=== PATIENT | female | born 1940 | race Caucasian/White ===

== ENCOUNTER 2017-01-12 11:15 | Emergency (ER) | payer MEDICARE, OTHER ==
--- NOTE | 2017-01-12 13:05 | UC ---
Respiratory Complaint HPI - HPI Summary HPI Summary: COUGH X 5 DAYS NO FEVER, NO CHILLS, + NASAL CONGESTION, PND, NO WHEEZING , + SOB BUT NOT MORE THAN USUAL - History of Current Complaint Chief Complaint: UCRespiratory Stated Complaint: COUGH Time Seen by Provider: 01/12/17 12:58 Hx Obtained From: Patient Onset/Duration: Gradual Onset, Lasting Days - 5, Still Present Timing: Constant Severity Initially: Moderate Severity Currently: Moderate Character: Cough: Nonproductive Aggravating Factors: Exertion, Deep Breaths Associated Signs And Symptoms: Positive: Dyspnea, URI, Nasal Congestion. Negative: Fever, Chills, Wheezing, Sinus Discomfort - Allergies/Home Medications Allergies/Adverse Reactions: Allergies Allergy/AdvReac Type Severity Reaction Status Date / Time Codeine AdvReac Intermediate "Vomit, Verified 01/12/17 12:57 get light-headed, sleep forever" Home Medications: Home Medications Aspirin [Aspirin 81 MG TAB] 81 mg PO DAILY 01/12/17 [History Confirmed 01/12/17] Cholecalciferol TAB* [Vitamin D TAB*] 2,000 units PO DAILY 01/12/17 [History Confirmed 01/12/17] Fluticasone-Salmeterol 250-50* [Advair Diskus 250-50*] 1 puff INH BID 01/12/17 [ History Confirmed 01/12/17] Furosemide TAB* [Lasix TAB*] 40 mg PO DAILY 01/12/17 [History Confirmed 01/12/17 ] Gabapentin CAP(*) [Neurontin 300 CAP(*)] 300 mg PO TID 01/12/17 [History Confirmed 01/12/17] Insulin GLARGINE(*) [Lantus(*)] 42 units SUBCUT BID 01/12/17 [History Confirmed 01/12/17] Insulin LISPRO* [HumaLOG*] 10 unit SUBCUT AC 01/12/17 [History Confirmed ] Levothyroxine TAB* [Synthroid TAB*] 150 mcg PO DAILY 01/12/17 [History Confirmed 01/12/17] Lovastatin [Altoprev] 20 mg PO BEDTIME 01/12/17 [History Confirmed 01/12/17] Spironolactone TAB* [Aldactone TAB*] 50 mg PO DAILY 01/12/17 [History Confirmed 01/12/17] Telmisartan [Micardis] 80 mg PO DAILY 01/12/17 [History Confirmed 01/12/17] PMH/Surg Hx/FS Hx/Imm Hx Endocrine History Of: 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, Thyroid Disease Cardiovascular History Of: Reports: Hypertension Denies: Cardiac Disorders Respiratory History Of: Reports: COPD, Asthma GI/ History Of: Denies: Ulcer - Surgical History Surgical History: Yes Surgery Procedure, Year, and Place: Hysterectomy - Family History Known Family History: Positive: Hypertension - Social History Alcohol Use: Rare Substance Use Type: None Smoking Status (MU): Never Smoked Tobacco Review of Systems Constitutional: Negative Skin: Negative Eyes: Negative ENT: Nasal Discharge Respiratory: Shortness Of Breath, Cough Cardiovascular: Negative Gastrointestinal: Negative Genitourinary: Negative All Other Systems Reviewed And Are Negative: Yes Physical Exam Triage Information Reviewed: Yes Appearance: Well-Appearing, No Pain Distress, Obese Vital Signs: Initial Vital Signs Temp 98.0 F 01/12/17 12:53 Pulse 90 01/12/17 12:53 Resp 14 01/12/17 12:53 BP 156/66 01/12/17 12:53 Pulse Ox 98 01/12/17 12:53 Vital Signs Reviewed: Yes Eyes: Positive: Conjunctiva Clear ENT: Positive: Normal ENT inspection, Hearing grossly normal, Pharynx normal Neck exam: Normal Neck: Positive: Supple, Nontender, No Lymphadenopathy Respiratory: Positive: Chest non-tender, Lungs clear, Normal breath sounds, No respiratory distress Cardiovascular: Positive: RRR, No Murmur, Pulses Normal Abdominal Exam: Normal UC Diagnostic Evaluation - Laboratory O2 Sat by Pulse Oximetry: 98 Respiratory Course/Dx - Differential Dx/Diagnosis Provider Diagnoses: VIRAL BRONCHITIS Discharge - Discharge Plan Condition: Stable Disposition: HOME Prescriptions: Benzonatate CAP* [Tessalon 100 MG CAP*] 100 mg PO TID PRN #21 cap PRN Reason: Cough Patient Education Materials: Acute Bronchitis (ED) Referrals: Epi Covarrubias MD [Primary Care Provider] - 7 Days Additional Instructions: VIRAL BRONCHITIS NO NEED FOR ANTIBIOTICS AT THIS TIME
[2017-01-12 13:10] VITALS: BP 156/66
== END 2017-01-12 13:15 | disposition home or self-care (01) ==
LOC: UCCORT 11:15
DX: J20.8 Acute bronchitis due to other specified organisms (principal); E11.9 Type 2 diabetes mellitus without complications; Z79.4 Long term (current) use of insulin; I10 Essential (primary) hypertension; J44.9 Chronic obstructive pulmonary disease, unspecified; E66.9 Obesity, unspecified; Z90.710 Acquired absence of both cervix and uterus; Z88.5 Allergy status to narcotic agent
CPT/HCPCS: 99202; G0463

== ENCOUNTER 2017-06-20 09:31 | Emergency (ER) | payer MEDICARE, OTHER ==
[2017-06-20 10:44] VITALS: BP 127/61
--- NOTE | 2017-06-20 13:09 | UC ---
Respiratory Complaint HPI - HPI Summary HPI Summary: 76 year old female with history of COPD presents with worsening cough x 10 days . LOOSE NON PRODUCTIVE COUGH FOR ABOUT ONE WEEK. HAS EPISODES WHERE SHE CANT STOP COUGHING AND CANT CATCH HER BREATH. DENIES INCREASED SOB. HAS HX OF COPD. NO FEVER SHE IS AWARE OF. NO HEAD OR BODY ACHES. HOARSENESS WELL. [ End ] - History of Current Complaint Chief Complaint: UCRespiratory Stated Complaint: RESPIRATORY Time Seen by Provider: 06/20/17 10:50 Hx Obtained From: Patient Onset/Duration: Gradual Onset Timing: Constant Severity Initially: Mild Severity Currently: Moderate Pain Intensity: 0 Pain Scale Used: 0-10 Numeric Character: Cough: Nonproductive Aggravating Factors: Nothing Alleviating Factors: Nothing Associated Signs And Symptoms: Positive: URI, Nasal Congestion - Allergies/Home Medications Allergies/Adverse Reactions: Allergies Allergy/AdvReac Type Severity Reaction Status Date / Time Codeine AdvReac Intermediate "Vomit, Verified 06/20/17 10:19 get light-headed, sleep forever" Home Medications: Home Medications Torsemide [Torsemide 100 MG] 50 mg PO DAILY 06/20/17 [History Confirmed 06/20/17 ] Umeclidin/Vilant 62.5 MDI(NF) [ANORO 62.5/25 Ellipta DEVICE (NF)] 1 inh INH DAILY 06/20/17 [History Confirmed 06/20/17] PMH/Surg Hx/FS Hx/Imm Hx Previously Healthy: Yes Respiratory History: COPD - Surgical History Surgical History: Yes Surgery Procedure, Year, and Place: Hysterectomy. TONSILLECTOMY - Family History Known Family History: Positive: Hypertension - Social History Occupation: Retired Lives: With Family Alcohol Use: Rare Substance Use Type: None Smoking Status (MU): Never Smoked Tobacco Household Exposure Type: Cigarettes - Immunization History Most Recent Influenza Vaccination: NOT YET IN 2017 Review of Systems Constitutional: Fatigue Respiratory: Shortness Of Breath, Cough All Other Systems Reviewed And Are Negative: Yes Physical Exam Triage Information Reviewed: Yes Appearance: Well-Appearing, No Pain Distress, Well-Nourished Vital Signs: Initial Vital Signs Pulse 72 06/20/17 10:24 Resp 24 06/20/17 10:24 BP 127/61 06/20/17 10:24 Pulse Ox 94 06/20/17 10:24 Vital Signs Reviewed: Yes Eye Exam: Normal ENT Exam: Normal Neck exam: Normal Neck: Positive: 1 Respiratory Exam: Normal Respiratory: Positive: Chest non-tender, Wheezing - mild expiratory wheeze LLL but otherwise clear Cardiovascular Exam: Normal Musculoskeletal Exam: Normal Neurological Exam: Normal Psychological Exam: Normal Skin Exam: Normal UC Diagnostic Evaluation - Laboratory O2 Sat by Pulse Oximetry: 94 Respiratory Course/Dx - Course Course Of Treatment: supportive care for a few days and if sx persist or worsen or needs rescue inhaler more then start steriods and doxy she is agreeable - Differential Dx/Diagnosis Differential Diagnosis/HQI/PQRI: Bronchitis, Lower Resp Infection, Sinusitis Provider Diagnoses: COPD exacerbation Discharge - Discharge Plan Condition: Good Disposition: HOME Prescriptions: Benzonatate [TESSALON 200 MG CAP] 200 mg PO TID #20 cap Doxycycline (Monohydrate) [Doxycycline Monohydrate] 100 mg PO BID #20 cap Methylprednisolone [Medrol Dosepak 4 MG*] 0 mg PO .SEE MEGHNA INSTRUCTION #1 tab Patient Education Materials: COPD (Chronic Obstructive Pulmonary Disease) (ED) Referrals: Epi Covarrubias MD [Primary Care Provider] - 4 Days Additional Instructions: As we discussed please use your cough medicine. If your symptoms worsen over the next 2-3 days then please at that time start your steroids and antibiotics. Please see your PCP in 3-4 days.
== END 2017-06-20 11:13 | disposition home or self-care (01) ==
LOC: UCCORT 09:31
DX: J44.1 Chronic obstructive pulmonary disease with (acute) exacerbation (principal); Z90.710 Acquired absence of both cervix and uterus; Z88.5 Allergy status to narcotic agent; Z77.22 Contact with and (suspected) exposure to environmental tobacco smoke (acute) (chronic)
CPT/HCPCS: 99212; G0463

== ENCOUNTER 2018-11-25 06:44 | Inpatient (IN) | payer MEDICARE, OTHER ==
--- NOTE | 2018-11-12 19:50 | HP ---
HISTORY AND PHYSICAL: DATE OF ADMISSION/SURGERY: 11/25/18 DATE OF OFFICE VISIT: 11/12/18 SURGEON: Emily Dykes MD * (DICTATED BY MONIQUE AN) PROCEDURE: Left total knee arthroplasty. CHIEF COMPLAINT: Left knee pain. HISTORY OF PRESENT ILLNESS: Ms. Moody is a 78-year-old female with end-stage osteoarthritis of the left knee. She has failed conservative treatment and elected to proceed with a left total knee arthroplasty. PAST MEDICAL HISTORY: 1. Diabetes. 2. Sleep apnea. 3. COPD. 4. Hypothyroidism. 5. Hypertension. 6. GERD. 7. Kidney disease. PAST SURGICAL HISTORY: 1. Hysterectomy. 2. Cataract removal. CURRENT MEDICATIONS: 1. Aspirin 81 mg a day. 2. Vitamin D3. 3. Uloric 80 mg a day. 4. Tums as needed. 5. Humalog KwikPen. 6. Levothyroxine at 150 mcg a day. 7. Micardis 80 mg a day. 8. Gabapentin 300 mg 3 times a day. 9. Torsemide 50 mg a day. 10. Lovastatin 20 mg q.h.s. 11. Anoro Ellipta inhaler. 12. Lantus SoloSTAR injection twice a day. 13. Omeprazole 20 mg daily. 14. Tylenol as needed. ALLERGIES: To CODEINE, causes nausea and vomiting. FAMILY HISTORY: Coronary artery disease. SOCIAL HISTORY: She is a 78-year-old female. She lives with her . She does not smoke or use drugs. She uses alcohol rarely. REVIEW OF SYSTEMS: A complete 14-point review of systems was reviewed with the patient, is positive for diabetes, hypothyroidism, GERD, COPD, shortness of breath, and kidney disease. She denies history of DVT, PE, hepatitis, HIV, or anesthesia problems. PHYSICAL EXAMINATION GENERAL: She is well developed, well nourished, in no acute distress. VITAL SIGNS: She stands 63 inches tall, weighs 300 pounds. Her blood pressure is 138/72, and her heart rate 82. HEENT: Normocephalic and atraumatic. NECK: Supple. No palpable lymph nodes. PULMONARY: Lungs are clear to auscultation bilaterally. CARDIAC: Regular rate and rhythm. Strong S1 and S2. ABDOMEN: Soft, nontender, and nondistended. MUSCULOSKELETAL: Left lower extremity, the skin is intact. There are no open wounds or abrasions. Range of motion is 5 to 110 degrees of flexion. She has a valgus deformity of 50 degrees. She has 2+ dorsalis pedis pulses. Intact sensation to the lower extremity. Muscle group strengths are intact at 5/5. NEUROLOGIC: She is alert and oriented x3. ASSESSMENT AND PLAN: Ms. Moody is a 78-year-old female with end-stage osteoarthritis of the left knee. She has failed conservative treatment and elected to proceed with a left total knee arthroplasty. The surgery is scheduled for 11/25/[address] Dykes has discussed the risks and benefits of the surgery at today's visit and all of her questions were answered. She will follow up with Dr. Dykes 2 weeks following the surgery. Due to her results of her kidney function test, I have not ordered TXA on this patient. MONIQUE AN [id number]/[facility] #: [id number] [facility] HOSPITALEdyta
[~2018-11-25 06:44] MED LIST: Buffered Lidocaine 1% SYRIN* 1 ML/SYRINGE INTRADERM ONE; Famotidine IV* 10 MG/ML 2 ML (20 mg) IV SLOW PU ONE; Lactated Ringers 1000 ML Bag* 1,000 ML IV SCH
--- OUTSIDE RECORDS SUMMARY | 2018-11-25 06:48 | XMS REPORT | Continuity of Care Document ---
:1940 External Reference #:[id number] Author Name Aziza Ayers Care Team Providers Name Role Phone Epi Covarrubias MD Primary Care Physician Unavailable Payers Date Identification Numbers Payment Provider Subscriber Effective: 2018 Policy Number: [id number] Medicare [employer] Name: Medicare [address] PayID: [id number] [place] [address] Effective: 2017 Policy Number: [id number] [facility] Ligia Moody PayID: [id number] [address] [place] [address] Effective: 2006 Policy Number: [id number] [facility] Wilson Moody PayID: [id number] [address] [place] [address] Advance Directives Description No Information Available Problems Date Description Provider Status Onset: 12/01/2015 Obesity Active Onset: 12/01/2015 Vitamin D deficiency Active Onset: 12/01/2015 Diabetic polyneuropathy Active Onset: 12/01/2015 Extrinsic asthma without status Active asthmaticus Onset: 10/22/2011 Type 2 diabetes mellitus Active Onset: 10/22/2011 Gastroesophageal reflux disease Active Onset: 10/22/2011 Hypothyroidism Active Onset: 10/22/2011 Benign essential hypertension Active Onset: 10/22/2011 Edema Active Onset: 10/22/2011 Gout Active Onset: 10/22/2011 Hyperlipidemia Active Onset: 10/22/2011 Asthma without status asthmaticus Active Onset: 10/22/2011 Hearing loss Active Onset: 10/20/2018 Morbid obesity Emily Dykes M.D. Active Onset: 10/20/2018 Localized, primary osteoarthritis Emily Donis, M.D. Active Family History Date Family Member(s) Observation Comments Father Heart Disease Father due to CAD () Mother Heart Disease Mother due to CAD () Siblings 4 First Brother Heart Disease Open Heart surgery Social History Type Date Description Comments Sex Unknown Marital Status Lives With Occupation Retired ETOH Use Rarely consumes alcohol Tobacco Use Start: Unknown End: Patient is a former smoker Unknown Recreational Drug Use Denies Drug Use Smoking Status Reviewed: 11/12/18 Patient is a former smoker Exercise Type/Frequency Exercises sporadically Allergies, Adverse Reactions, Alerts Date Description Reaction Status Severity Comments 07/08/2018 Codeine Active Medications Medication Date Status Form Strength Qnty SIG Indications Ordering Provider Freestyle Lite 11/10 Active Strips 100un test blood Donis M its sugar 3 times Marson, daily and as MD needed Pen Gate 11/03 Active Misc 31G X 5 100un use three mm its times a day Castkendra and as needed MD reinier Aspir-Low 07/02 Active Tablets 81mg 90tab [address] s every day Claire hills MD Vitamin D3 04/01 Active Capsules 2000Unit 90cap 1 by mouth E55.9 s every day Claire hills MD Torsemide 04/01 Active Tablets 100mg 45tab 1/2 by mouth Donis s every day MD Yohannes Uloric 04/04 Active Tablets 80mg 90tab 1 by mouth M10.9 s every day Claire hills MD Tums 11/30 Active Chewtabs 500mg as needed K21.9 Claire hills MD Humalog Kwikpen 11/12 Active Solution 100Unit/M 10uni 10 u before E11.9 Pen-Injec L ts each meal Claire t MD reinier Levothyroxine 10/22 Active Tablets 150mcg 90tab take 1 tablet E03.9 s by mouth every Castellan day MD reinier Micardis Active Tablets 80mg 90tab 1 by mouth s every day Claire hills MD Gabapentin Active Capsules 300mg 1 by mouth three times a day Lovastatin Active Tablets 20mg take 1 tablet Donis at bedtime MD Yohannes Anoro Ellipta Active Aerosol 62.5-25mc 1 inhalation Donis /0000 g/Inh daily MD Yohannes Lannathalie Solostar Active Solution 100Unit/M 90ml inject 38 Donis M /0000 Pen-Injec L units 2 times Yohannes, klever a day Omeprazole Active Capsules 20mg 1 by mouth Unknown /0000 DR every day Tylenol Active Tablets 325mg take 2 tabs as Unknown /0000 needed every 6 hours for pain/fever Metformin HCL 11/21 Hx Tablets 500mg 90tab 1 by mouth in E11.40 s am Claire hills MD 12/31 Phentermine HCL 11/21 Hx Tablets 37.5mg 30tab 1 by mouth Z68.43 s every day, 10/01 Castellatimothy - hour before MD reinier 10/02 the meal or hours after the meal Metformin HCL 08/21 Hx Tablets 500mg 90tab Stop this drug E11.40 s due to renal Castellan - failure MD reinier 12/31 Azithromycin 07/26 Hx Tablets 250mg 6tabs 2 now and 1 J06.9 daily x 4 days Claire hills MD 09/06 Nexium 11/30 Hx Capsules 20mg 90cap [address] mouth [address]21.9 [address] s every day Claire hills MD 04/01 Lasix 05/30 Hx Tablets 40mg 90tab 1 by mouth s every day Claire hills MD 12/31 Januvia 04/14 Hx Tablets 100mg 30tab 1 by mouth E11.9 s every day Claire hills MD 11/30 Amoxicillin 10/27 Hx Capsules 500mg 30cap 1 by mouth 465.9 s three times a Allyssaellan - day MD reinier 11/23 Spironolactone 04/22 Hx Tablets 50mg 90tab 1 by mouth R60.0 s every day Claire hills MD 12/31 Pioglitazone 09/27 Hx Tablets 45mg 1tabs this med was Epi stopped back Claire Fuentes in 09/27/13 MD reinier 11/12 Allopurinol 08/25 Hx Tablets 100mg 90tab 1 po qd ( stop s uloric ) Claire hills MD 09/08 Synthroid 08/12 Hx Tablets 150mcg 90tab Take 1 Tablet s By Mouth Every Castellan - Day MD reinier 09/08 Spironolactone 04/15 Hx Tablets 100mg 1tabs please 782.3 discontinue Claire - spirinolactone reinier, 04/15 Kayexalate 04/13 Hx Powder 60uni 15 gm today 276.7 ts Claire hills MD 05/18 Furosemide 09/08 Hx Tablets 40mg 135ta 1 PO Q Am And 428.0 bs 1/2 [facility] MD reinier 04/22 Azithromycin 07/29 Hx Tablets 250mg 6tabs 2 now and 1 465.9 daily x 4 days Claire hills MD 10/28 Glucotrol XL 06/10 Hx Tablets 10mg 1tabs Stop Glucotrol 250.00 ER 24HR Claire hills MD 09/08 Glucotrol XL 05/08 Hx Tablets 5mg 30tab 1 po qd 250.00 ER 24HR s Claire hills MD 06/10 Tradjenta 04/02 Hx Tablets 5mg 1tabs Stop Tradjenta 250.00 Claire hills MD 09/08 Victoza 03/06 Hx Solution 18mg/3ML 1.8 unit 250.00 Pen-Injec injection Allyssaellan - t subcutaneous osMD 04/02 every Victoza 02/20 Hx Solution 18mg/3ML 0.6 unit 250.00 Pen-Injec injection Castellan - t subcutaneous os, 03/06 every for one week and then 1.2 Lyrica 01/20 Hx Capsules 50mg 270ca tid 357.2 ps Claire hills MD 01/20 Gabapentin 01/20 Hx Capsules 100mg 270ca take 1 capsule E08.40 ps by mouth 3 Castellan - times daily os, MD 07/26 Klor-Con M10 10/22 Hx Tablets 10Meq 90tab 1 po qd 401.9 ER maria elena hills MD 10/28 Glipizide XL 10/22 Hx Tablets 10mg 90tab 1 po qd 250.00 ER 24HR maria elena hills MD 03/06 Lovastatin 10/22 Hx Tablets 40mg 90tab 1 qpm 272.4 maria elena hills MD 06/10 Actos 10/22 Hx Tablets 45mg 90tab 1 po qd 250.00 maria elena hills MD 05/18 Uloric 10/22 Hx Tablets 80mg 90tab 1 qd 274.9 maria elena hills MD 08/25 Spironolactone 10/22 Hx Tablets 100mg 90tab 1 po qd 782.3 maria elena hills MD 04/15 Nexium 10/22 Hx Capsules 40mg 90cap [address] maria elena hills MD 05/18 Metformin HCL 10/22 Hx Tablets 1000mg 180ta 1 po bid 250.00 giselle hills MD 02/20 Celebrex 10/22 Hx Capsules 200mg 90cap 1 po qd 716.90 maria elena hills MD 02/20 Advair Diskus 10/22 Hx Aerosol 250-50mcg 3unit 1 puff twice a J45.909 /Dose s sam hills MD 04/18 Torsemide Hx Tablets 50mg 1 by mouth Unknown /0000 every day - 11/10 Uloric Hx Tablets 40mg 1 by mouth Unknown /0000 every day - 10/06 Phentermine HCL Hx Capsules 15mg 1 by mouth Unknown /0000 every day - 10/05 Humalog Hx Solution 100Unit/M inject 10 Unknown /0000 L units three - times a day 10/06 with meals as directed Vitamin D3 Hx Capsules 2000Unit 1 by mouth Unknown Super Strength /0000 every day - 10/06 Torsemide 00 Hx Tablets 100mg 45tab /2 daily Epi /0000 s Claire hills MD 10/06 Medications Administered in Office Medication Date Status Form Strength Qnty SIG Indications Ordering Provider Celestone 3 mg Administered Injection Donis Cristo and 3mg Kahlil Sheffield MD Immunizations CPT Code Status Date Vaccine Lot # [id number] Given 08/10/2018 Fluzone High Dose 90690 Given 08/21/2017 Pneumococcal Conjugate Vaccine 13 Valent For Intramuscular Use 75428 Given 06/28/2017 Fluzone High Dose 19631 Given 08/10/2015 Fluzone High Dose 51370 Given 10/28/2012 Pneumonia Vaccine 73308 Given 10/28/2012 Tdap - Tetanus/Diptheria/Acellular Pertussis 07805 Given 07/04/2010 Fluzone High Dose 23697 Given 07/02/2008 Influenza Virus 3Yrs & Over 07674 Given 01/02/2008 Pneumonia Vaccine 22558 Given 01/02/2008 Tetanus And Diptheria (Td) For Adult Use Preservative Free Vital Signs Date Vital Result Comment 11/12/2018 8:13am Height 63.5 inches 5'3.50" Weight 305.00 lb Heart Rate 84 /min BP Systolic 128 mmHg BP Diastolic 56 mmHg Body Temperature 97.7 F BMI (Body Mass Index) 53.2 kg/m2 11/11/2018 11:29am Height 63.5 inches 5'3.50" Weight 305.00 lb Heart Rate 77 /min BP Systolic 102 mmHg BP Diastolic 48 mmHg Respiratory Rate 18 /min Body Temperature 97.6 F O2 % BldC Oximetry 96 % BMI (Body Mass Index) 53.2 kg/m2 10/20/2018 1:46pm Height 63.5 inches 5'3.50" Weight 302.00 lb BP Systolic 138 mmHg BP Diastolic 72 mmHg Respiratory Rate 16 /min Pain Level 9 BMI (Body Mass Index) 52.7 kg/m2 10/08/2018 8:34am Height 63.5 inches 5'3.50" Weight 303.00 lb Heart Rate 60 /min BP Systolic Sitting 126 mmHg L BP Diastolic Sitting 58 mmHg L Respiratory Rate 24 /min Pain Level 5 BMI (Body Mass Index) 52.8 kg/m2 10/02/2018 10:30am Weight 303.00 lb Heart Rate 90 /min BP Systolic 132 mmHg BP Diastolic 74 mmHg Respiratory Rate 20 /min 07/08/2018 10:56am Height 63.75 inches 5'3.75" Weight 300.00 lb BP Systolic Sitting 132 mmHg BP Diastolic Sitting 78 mmHg Respiratory Rate 16 /min Pain Level 9 BMI (Body Mass Index) 51.9 kg/m2 07/02/2018 10:06am Weight 300.00 lb BP Systolic 122 mmHg BP Diastolic 64 mmHg 04/01/2018 9:39am Weight 303.00 lb BP Systolic 120 mmHg BP Diastolic 62 mmHg 12/31/2017 11:33am Height 63.50 inches Weight 303.00 lb Heart Rate 76 /min BP Systolic 110 mmHg BP Diastolic 60 mmHg Respiratory Rate 16 /min BMI (Body Mass Index) 52.8 kg/m2 11/21/2017 9:36am Height 63.75 inches Weight 315.00 lb BP Systolic 128 mmHg BP Diastolic 60 mmHg BMI (Body Mass Index) 54.5 kg/m2 08/21/2017 9:29am Height 63.75 inches Weight 312.00 lb BP Systolic 128 mmHg BP Diastolic 62 mmHg BMI (Body Mass Index) 54.0 kg/m2 05/20/2017 9:45am Height 63.75 inches Weight 319.00 lb BP Systolic 138 mmHg BP Diastolic 66 mmHg BMI (Body Mass Index) 55.2 kg/m2 04/18/2017 11:00am Weight 316.00 lb BP Systolic 140 mmHg BP Diastolic 60 mmHg 03/20/2017 11:40am Weight 314.50 lb BP Systolic 122 mmHg BP Diastolic 66 mmHg 01/22/2017 8:32am Weight 311.00 lb BP Systolic 158 mmHg BP Diastolic 72 mmHg 12/17/2016 1:08pm Height 63.75 inches Weight 313.00 lb Heart Rate 68 /min BP Systolic 128 mmHg BP Diastolic 70 mmHg Respiratory Rate 16 /min BMI (Body Mass Index) 54.1 kg/m2 09/06/2016 10:07am Weight 308.00 lb BP Systolic 122 mmHg BP Diastolic 60 mmHg 07/26/2016 1:46pm Weight 303.00 lb BP Systolic 120 mmHg BP Diastolic 52 mmHg 04/18/2016 2:05pm Weight 304.50 lb BP Systolic 120 mmHg BP Diastolic 52 mmHg 04/04/2016 9:58am BP Systolic 118 mmHg BP Diastolic 52 mmHg Body Temperature 98.6 F 01/04/2016 2:17pm Height 63.75 inches Weight 302.00 lb Heart Rate 76 /min BP Systolic 110 mmHg BP Diastolic 60 mmHg Respiratory Rate 16 /min Body Temperature 97.5 F BMI (Body Mass Index) 52.2 kg/m2 12/01/2015 1:05pm Height 63.75 inches Weight 300.00 lb Heart Rate 72 /min BP Systolic 108 mmHg BP Diastolic 56 mmHg Respiratory Rate 16 /min BMI (Body Mass Index) 51.9 kg/m2 11/08/2015 11:52am Weight 300.00 lb BP Systolic 122 mmHg BP Diastolic 72 mmHg 07/28/2015 2:20pm Weight 294.00 lb BP Systolic 124 mmHg BP Diastolic 62 mmHg 06/29/2015 11:12am Weight 297.00 lb BP Systolic 110 mmHg BP Diastolic 40 mmHg 04/28/2015 10:55am Weight 293.00 lb BP Systolic 110 mmHg BP Diastolic 56 mmHg 04/14/2015 10:26am Weight 293.00 lb BP Systolic 122 mmHg BP Diastolic 60 mmHg 03/14/2015 1:39pm Weight 289.00 lb BP Systolic 106 mmHg BP Diastolic 58 mmHg 11/23/2014 12:56pm Height 63.55 inches Weight 280.00 lb Heart Rate 70 /min BP Systolic 110 mmHg BP Diastolic 52 mmHg Body Temperature 97.7 F BMI (Body Mass Index) 48.7 kg/m2 10/27/2014 1:29pm Weight 280.50 lb BP Systolic 136 mmHg BP Diastolic 58 mmHg 07/21/2014 1:23pm Weight 280.00 lb BP Systolic 116 mmHg BP Diastolic 64 mmHg 04/22/2014 9:27am Weight 275.00 lb BP Systolic 110 mmHg BP Diastolic 60 mmHg 01/21/2014 8:02am Weight 267.50 lb BP Systolic 116 mmHg BP Diastolic 60 mmHg 12/17/2013 11:40am Weight 271.50 lb BP Systolic 106 mmHg BP Diastolic 50 mmHg 11/12/2013 11:47am Height 63.50 inches Weight 275.50 lb Heart Rate 64 /min BP Systolic 100 mmHg BP Diastolic 56 mmHg Respiratory Rate 16 /min Body Temperature 96.5 F BMI (Body Mass Index) 48.0 kg/m2 09/08/2013 1:29pm Weight 290.00 lb BP Systolic 128 mmHg BP Diastolic 76 mmHg 08/25/2013 10:18am Weight 295.00 lb BP Systolic 138 mmHg BP Diastolic 56 mmHg 08/12/2013 3:28pm Weight 297.00 lb BP Systolic 130 mmHg BP Diastolic 80 mmHg 05/18/2013 1:44pm Height 63 inches Weight 314.00 lb BMI (Body Mass Index) 55.6 kg/m2 04/15/2013 8:45am Height 63 inches Weight 311.00 lb BP Systolic 106 mmHg BP Diastolic 52 mmHg BMI (Body Mass Index) 55.1 kg/m2 01/26/2013 9:24am Height 63 inches Weight 310.00 lb BP Systolic 130 mmHg BP Diastolic 62 mmHg BMI (Body Mass Index) 54.9 kg/m2 10/28/2012 3:46pm Height 63 inches Weight 304.00 lb Heart Rate 88 /min BP Systolic 120 mmHg BP Diastolic 58 mmHg Respiratory Rate 16 /min Body Temperature 97.4 F BMI (Body Mass Index) 53.8 kg/m2 09/08/2012 2:12pm Height 63.50 inches Weight 306.00 lb BP Systolic 120 mmHg BP Diastolic 64 mmHg Body Temperature 98.5 F BMI (Body Mass Index) 53.3 kg/m2 07/29/2012 9:42am Height 63.50 inches Weight 302.50 lb BP Systolic 144 mmHg BP Diastolic 72 mmHg BMI (Body Mass Index) 52.7 kg/m2 06/10/2012 9:55am BP Systolic 130 mmHg BP Diastolic 78 mmHg 04/07/2012 10:31am Weight 297.00 lb BP Systolic 142 mmHg BP Diastolic 60 mmHg 03/06/2012 10:50am Height 63.50 inches Weight 295.00 lb BP Systolic 122 mmHg BP Diastolic 60 mmHg BMI (Body Mass Index) 51.4 kg/m2 02/21/2012 9:47am Height 63.50 inches Weight 305.00 lb BP Systolic 140 mmHg BP Diastolic 68 mmHg BMI (Body Mass Index) 53.2 kg/m2 01/21/2012 10:05am Height 63.50 inches Weight 305.50 lb BP Systolic 150 mmHg BP Diastolic 74 mmHg BMI (Body Mass Index) 53.3 kg/m2 10/22/2011 9:39am Height 63.50 inches Weight 296.50 lb Heart Rate 80 /min BP Systolic 132 mmHg BP Diastolic 72 mmHg Respiratory Rate 16 /min Body Temperature 97.7 F BMI (Body Mass Index) 51.7 kg/m2 Results Test Date Facility Test Result H/L Range Note Laboratory test 09/19/2018 N2N/CCD Import Glycohemoglobin (A1c) 5.8 % 4.2-6.3 1, 2 finding Thyroglobulin Antibody 1924.9 IU/mL High 0-0.9 3 Vitamin D,25-Hydroxy 44.3 ng/mL 30-100 4 eAG 120 mg/dL Comprehensive Metabolic Panel 09/19/2018 N2N/CCD Import Alb/Glob 1.0 ratio Albumin 3.6 g/dL 3.4-5 Alkaline Phosphatase 69 U/L 45-117 Anion Gap 8 mEq/L 8-16 BUN 49 mg/dL High 7-18 BUN/Creat 25.7 ratio Bilirubin,Total 0.2 mg/dL 0.2-1 Calcium 9.0 mg/dL 8.5-10.1 Carbon Dioxide 29 mmol/L 21-32 Chloride 105 mmol/L 98-107 Creatinine 1.9 mg/dL High 0.6-1.3 Globulin 3.7 g/dL 1.9-4.3 Glom Filtration Rate, Estimate 27 mL/min Glucose 68 mg/dL Low 74-106 If 33 mL/min 5 Potassium 4.2 mmol/L 3.5-5.1 SGPT/Alt 27 U/L 12-78 Sgot/Ast 14 U/L Low 15-37 6 Sodium 142 mmol/L 136-145 Total Protein 7.3 g/dL 6.4-8.2 LDL Cholesterol Profile 09/19/2018 N2N/CCD Import Cholesterol 164 mg/dL 7 HDL Cholesterol 40 mg/dL 8 LDL-Cholesterol 96 mg/dL 9 Triglycerides 138 mg/dL 10 Laboratory test 04/14/2018 N2N/CCD Import Surgical Interface See Result 11, 12 finding Order Below Laboratory test 03/25/2018 N2N/CCD Import Glycohemoglobin 6.5 % High 4.2 - 13, 14 finding (A1c) 6.3 Reflex add FT3? Y Reflex add FT4? Y Thyroid Stim Hormone 1.17 uIU/mL 0.3-4.2 eAG 140 mg/dL Comprehensive Metabolic Panel 03/25/2018 N2N/CCD Import Alb/Glob 0.9 ratio Albumin 3.6 g/dL 3.4-5 Alkaline Phosphatase 66 U/L 45-117 Anion Gap 10 mEq/L 8-16 BUN 39 mg/dL High 7-18 BUN/Creat 22.9 ratio Bilirubin,Total 0.4 mg/dL 0.2-1 Calcium 8.6 mg/dL 8.5-10.1 Carbon Dioxide 28 mmol/L 21-32 Chloride 106 mmol/L 98-107 Creatinine 1.7 mg/dL High 0.6-1.3 Globulin 3.8 g/dL 1.9-4.3 Glom Filtration Rate, Estimate 31 mL/min Glucose 72 mg/dL Low 74-106 If 38 mL/min 15 Potassium 3.9 mmol/L 3.5-5.1 Reflex add FT3? Y Reflex add FT4? Y SGPT/Alt 25 U/L 12-78 Sgot/Ast 16 U/L 15-37 Sodium 144 mmol/L 136-145 Total Protein 7.4 g/dL 6.4-8.2 LDL Cholesterol Profile 03/25/2018 N2N/CCD Import Cholesterol 164 mg/dL 16 HDL Cholesterol 33 mg/dL Low 17 LDL-Cholesterol 88 mg/dL 18 Reflex add FT3? Y Reflex add FT4? Y Triglycerides 217 mg/dL High 19 Microalbumin,Random 03/25/2018 N2N/CCD Import Microalbumin,Urine < 5.0 Urine mg/L Laboratory test finding 01/13/2018 N2N/CCD Import Act Partial Thrombo 19.4 s Low 23. 20, Time 4-3 21 5 CK 41 U/L 26-192 Magnesium 1.8 mg/dL 1.8-2.4 Troponin-I < 0.015 ng/mL 22 CBS W/Automated Diff 01/13/2018 N2N/CCD Import Bas% 0.4 % 0-1.1 Baso # 0.03 K/uL 0-0.1 Eo% 3.9 % 0-6.6 Eos # 0.31 K/uL 0-0.5 Hematocrit 36.2 % 36-46.1 Hemoglobin 11.6 gm/dL 11.6-15.8 Lymph # 1.08 K/uL 1-4 Lymph % 13.8 % Low 20-42 Mean Cell Volume 85.6 fl 80.9-99 Mean Corpuscular HGB 27.4 pg 25.9-32.7 Mean Corpuscular HGB Conc 32.0 g/dL 30.8-34.3 Mean Platelet Volume 10.2 fL 8.9-12.4 [place] # 0.92 K/uL High 0.3-0.9 [place] % 11.7 % 4.3-13.2 Neut# 5.51 K/uL 1.8-7 Neut% 70.2 % 40.4-72.8 Platelet Count 266 K/uL 155-360 Red Blood Count 4.23 M/uL 3.9-5.4 Red Cell Distri Width %CV 15.5 % High 11.7-14.4 Red Cell Distri Width SD 47.2 fl High 3-47 White Blood Count 7.9 K/uL 3.1-10.7 Comprehensive Metabolic Panel 01/13/2018 N2N/CCD Import Alb/Glob 0.9 ratio Albumin 3.4 g/dL 3.4-5 Alkaline Phosphatase 70 U/L 45-117 Anion Gap 7 mEq/L Low 8-16 BUN 45 mg/dL High 7-18 BUN/Creat 20.4 ratio Bilirubin,Total 0.3 mg/dL 0.2-1 Calcium 8.7 mg/dL 8.5-10.1 Carbon Dioxide 31 mmol/L 21-32 Chloride 103 mmol/L 98-107 Creatinine 2.2 mg/dL High 0.6-1.3 Globulin 3.8 g/dL 1.9-4.3 Glom Filtration Rate, Estimate 23 mL/min Glucose 141 mg/dL High 74-106 If 28 mL/min 23 Potassium 4.5 mmol/L 3.5-5.1 SGPT/Alt 22 U/L 12-78 Sgot/Ast 12 U/L Low 15-37 24 Sodium 141 mmol/L 136-145 Total Protein 7.2 g/dL 6.4-8.2 Protime 01/13/2018 N2N/CCD Import Inr 1.0 1 0.9-1.1 25 Protime 13.1 s 12-14.4 Laboratory test 11/13/2017 N2N/CCD Import Glycohemoglobin 7.1 % High 4.2- 6.3 26, 27 finding (A1c) Reflex add FT4? Y Thyroid Stim Hormone 1.69 uIU/mL 0.3-4.2 Vitamin D,25-Hydroxy 38.1 ng/mL 30-100 28 eAG 157 mg/dL Comprehensive Metabolic Panel 11/13/2017 N2N/CCD Import Alb/Glob 0.9 ratio Albumin 3.5 g/dL 3.4-5 Alkaline Phosphatase 75 U/L 45-117 Anion Gap 7 mEq/L Low 8-16 BUN 51 mg/dL High 7-18 BUN/Creat 25.5 ratio Bilirubin,Total 0.2 mg/dL 0.2-1 Calcium 9.2 mg/dL 8.5-10.1 Carbon Dioxide 29 mmol/L 21-32 Chloride 104 mmol/L 98-107 Creatinine 2.0 mg/dL High 0.6-1.3 Globulin 3.9 g/dL 1.9-4.3 Glom Filtration Rate, Estimate 26 mL/min Glucose 137 mg/dL High 74-106 If 31 mL/min 29 Potassium 4.3 mmol/L 3.5-5.1 Reflex add FT4? Y SGPT/Alt 28 U/L 12-78 Sgot/Ast 13 U/L Low 15-37 30 Sodium 140 mmol/L 136-145 Total Protein 7.4 g/dL 6.4-8.2 LDL Cholesterol Profile 11/13/2017 N2N/CCD Import Cholesterol 164 mg/dL 31 HDL Cholesterol 35 mg/dL Low 32 LDL-Cholesterol 89 mg/dL 33 Reflex add FT4? Y Triglycerides 198 mg/dL High 34 Laboratory test 08/14/2017 N2N/CCD Import Glycohemoglobin 7.5 % High 4.2- 6.3 35, 36 finding (A1c) eAG 169 mg/dL Comprehensive Metabolic Panel 08/14/2017 N2N/CCD Import Alb/Glob 0.9 ratio Albumin 3.5 g/dL 3.4-5 Alkaline Phosphatase 67 U/L 45-117 Anion Gap 9 mEq/L 8-16 BUN 39 mg/dL High 7-18 BUN/Creat 24.3 ratio Bilirubin,Total 0.3 mg/dL 0.2-1 Calcium 9.4 mg/dL 8.5-10.1 Carbon Dioxide 26 mmol/L 21-32 Chloride 106 mmol/L 98-107 Creatinine 1.6 mg/dL High 0.6-1.3 Globulin 3.8 g/dL 1.9-4.3 Glom Filtration Rate, Estimate 33 mL/min Glucose 105 mg/dL 74-106 If 40 mL/min 37 Potassium 3.9 mmol/L 3.5-5.1 SGPT/Alt 22 U/L 12-78 Sgot/Ast 12 U/L Low 15-37 38 Sodium 141 mmol/L 136-145 Total Protein 7.3 g/dL 6.4-8.2 LDL Cholesterol Profile 08/14/2017 N2N/CCD Import Cholesterol 148 mg/dL 39 HDL Cholesterol 34 mg/dL Low 40 LDL-Cholesterol 75 mg/dL 41 Triglycerides 196 mg/dL High 42 Laboratory test 03/12/2017 N2N/CCD Import Glycohemoglobin 7.2 % High 4.2- 6.3 43, 44 finding (A1c) Hepatitis C Antibody < 0.1 s/corat 0-0.9 45 Reflex add FT3? N Reflex add FT4? Y Thyroid Stim Hormone 1.17 uIU/mL 0.3-4.2 Uric Acid 5.4 mg/dL 2.6-6 eAG 160 mg/dL Comprehensive Metabolic Panel 03/12/2017 N2N/CCD Import Alb/Glob 1.0 ratio Albumin 3.6 g/dL 3.4-5 Alkaline Phosphatase 64 U/L 45-117 Anion Gap 10 mEq/L 8-16 BUN 54 mg/dL High 7-18 BUN/Creat 30.0 ratio Bilirubin,Total 0.2 mg/dL 0.2-1 Calcium 8.5 mg/dL 8.5-10.1 Carbon Dioxide 22 mmol/L 21-32 Chloride 110 mmol/L High 98-107 Creatinine 1.8 mg/dL High 0.6-1.3 Globulin 3.6 g/dL 1.9-4.3 Glom Filtration Rate, Estimate 29 mL/min Glucose 99 mg/dL 74-106 If 35 mL/min 46 Potassium 4.8 mmol/L 3.5-5.1 Reflex add FT3? N Reflex add FT4? Y SGPT/Alt 22 U/L 12-78 Sgot/Ast 8 U/L Low 15-37 47 Sodium 142 mmol/L 136-145 Total Protein 7.2 g/dL 6.4-8.2 LDL Cholesterol Profile 03/12/2017 N2N/CCD Import Cholesterol 139 mg/dL 48 HDL Cholesterol 31 mg/dL Low 49 LDL-Cholesterol 78 mg/dL 50 Reflex add FT3? N Reflex add FT4? Y Triglycerides 150 mg/dL 51 Microalbumin,Random Urine 03/12/2017 N2N/CCD Import Microalbumin,Urine < 6.0 mg/L Imaging finding 12/31/2016 N2N/CCD Import CT scan of the lungs <pending> pulmonary function test <pending> Laboratory test 12/10/2016 N2N/[facility] [facility] ? Import Glycohemoglobin 7.6 % High 4.2- 6.3 52, 53 finding (A1c) eAG 171 mg/dL Microalbumin,Random 12/10/2016 N2N/[place] ? Import Microalbumin,Urine < 6.0 Urine mg/L Laboratory test finding 07/19/2016 N2N/[place] ? Import Glycohemoglobin (A1c) 7.3 % High 4.2 54, -6. 55 3 Is Patient Fasting? Fasting Microalbumin,Random Urine 6.5 mg/L Uric Acid 5.7 mg/dL 2.6-6 eAG 163 mg/dL Comprehensive Metabolic Panel 07/19/2016 N2N/[place] ? Import Alb/Glob 1.1 ratio Albumin 3.8 g/dL 3.4-5 Alkaline Phosphatase 69 U/L 45-117 Anion Gap 12 mEq/L 8-16 BUN 59 mg/dL High 7-18 BUN/Creat 22.6 ratio Bilirubin,Total 0.3 mg/dL 0.2-1 Calcium 9.4 mg/dL 8.5-10.1 Carbon Dioxide 22 mmol/L 21-32 Chloride 104 mmol/L 98-107 Creatinine 2.6 mg/dL High 0.6-1.3 Globulin 3.6 g/dL 1.9-4.3 Glom Filtration Rate, Estimate 19 mL/min Glucose 112 mg/dL High 74-106 If 23 mL/min 56 Is Patient Fasting? Fasting Potassium 4.7 mmol/L 3.5-5.1 SGPT/Alt 21 U/L 12-78 Sgot/Ast 11 U/L Low 15-37 57 Sodium 138 mmol/L 136-145 Total Protein 7.4 g/dL 6.4-8.2 LDL Cholesterol Profile 07/19/2016 N2N/[place] ? Import Cholesterol 144 mg/dL 58 HDL Cholesterol 29 mg/dL Low 59 Is Patient Fasting? Fasting LDL-Cholesterol 71 mg/dL 60 Triglycerides 221 mg/dL High 61 Laboratory test 04/16/2016 N2N/[place] ? Import Sedimentation Rate 67 mm/hr High 0-30 finding Uric Acid 6.1 mg/dL High 2.6-6 Laboratory test 04/04/2016 N2N/[place] ? Import Sedimentation Rate 56 mm/hr High 0-30 finding Uric Acid 10.9 mg/dL High 2.6-6 Laboratory test 03/28/2016 N2N/[place] ? Import Glycohemoglobin (A1c) 7.2 % High 4.2-6.3 62 finding eAG 160 mg/dL Comprehensive Metabolic Panel 03/28/2016 [employer]/[facility] ? Import Alb/Glob 1.1 ratio Albumin 3.8 g/dL 3.4-5 Alkaline Phosphatase 68 U/L 45-117 Anion Gap 9 mEq/L 8-16 BUN 46 mg/dL High 7-18 BUN/Creat 25.5 ratio Bilirubin,Total 0.4 mg/dL 0.2-1 Calcium 9.5 mg/dL 8.5-10.1 Carbon Dioxide 26 mmol/L 21-32 Chloride 102 mmol/L 98-107 Creatinine 1.8 mg/dL High 0.6-1.3 Globulin 3.6 g/dL 1.9-4.3 Glom Filtration Rate, Estimate 29 mL/min Glucose 141 mg/dL High 74-106 If 35 mL/min 63 Potassium 4.5 mmol/L 3.5-5.1 SGPT/Alt 20 U/L 12-78 Sgot/Ast 12 U/L Low 15-37 64 Sodium 137 mmol/L 136-145 Total Protein 7.4 g/dL 6.4-8.2 LDL Cholesterol Profile 03/28/2016 [employer] ? Import Cholesterol 162 mg/dL 65 HDL Cholesterol 31 mg/dL Low 66 LDL-Cholesterol 99 mg/dL 67 Triglycerides 160 mg/dL High 68 Laboratory test 10/19/2015 [employer] [employer] [facility] ? Import Glycohemoglobin (A1c) 6.9 % High 4.2-6.3 69 finding Microalbumin,Random Urine 6.3 mg/L eAG 151 mg/dL Comprehensive Metabolic Panel 10/19/2015 [employer] ? Import Alb/Glob 1.0 ratio Albumin 3.7 g/dL 3.4-5 Alkaline Phosphatase 67 U/L 45-117 Anion Gap 7 mEq/L Low 8-16 BUN 54 mg/dL High 7-18 BUN/Creat 28.4 ratio Bilirubin,Total 0.3 mg/dL 0.2-1 Calcium 8.7 mg/dL 8.5-10.1 Carbon Dioxide 27 mmol/L 21-32 Chloride 104 mmol/L 98-107 Creatinine 1.9 mg/dL High 0.6-1.3 Globulin 3.6 g/dL 1.9-4.3 Glom Filtration Rate, Estimate 27 mL/min Glucose 115 mg/dL High 74-106 If 33 mL/min 70 Potassium 4.5 mmol/L 3.5-5.1 SGPT/Alt 20 U/L 12-78 Sgot/Ast 11 U/L Low 15-37 71 Sodium 138 mmol/L 136-145 Total Protein 7.3 g/dL 6.4-8.2 LDL Cholesterol Profile 10/19/2015 N2N/CCD Import Cholesterol 141 mg/dL 72 HDL Cholesterol 27 mg/dL Low 73 LDL-Cholesterol 71 mg/dL 74 Triglycerides 214 mg/dL High 75 Laboratory test 07/20/2015 N2N/CCD Import Glycohemoglobin (A1c) 6.8 % High 4.2-6.3 76 finding eAG 148 mg/dL Laboratory test 06/21/2015 N2N/CCD Import Glycohemoglobin (A1c) 7.4 % High 4.2-6.3 77 finding eAG 166 mg/dL Laboratory test 05/23/2015 N2N/CCD Import Glycohemoglobin (A1c) 7.0 % High 4.2-6.3 78 finding eAG 154 mg/dL Laboratory test 03/04/2015 N2N/CCD Import Glycohemoglobin (A1c) 7.8 % High 4.2-6.3 79 finding Microalbumin,Random Urine < 6.0 mg/L TSH Reflex FT4 and/or FT3 0.64 uIU/mL 0.36-3.74 80 Uric Acid 10.6 mg/dL High 2.6-6 Vitamin D,25-Hydroxy 26.9 ng/mL Low 30-100 81 eAG 177 mg/dL CBC 03/04/2015 N2N/CCD Import Hematocrit 36.0 % 36-46.1 Hemoglobin 11.3 gm/dL Low 11.6-15.8 Mean Cell Volume 84.5 fl 80.9-99 Mean Corpuscular HGB 26.5 pg 25.9-32.7 Mean Corpuscular HGB Conc 31.4 g/dL 30.8-34.3 Mean Platelet Volume 11.4 fL 8.9-12.4 Platelet Count 233 K/uL 155-360 Red Blood Count 4.26 M/uL 3.9-5.4 Red Cell Distri Width %CV 15.0 % High 11.7-14.4 White Blood Count 8.3 K/uL 3.1-10.7 Comprehensive Metabolic Panel 03/04/2015 N2N/[place] ? Import Alb/Glob 1.1 ratio Albumin 3.8 g/dL 3.4-5 Alkaline Phosphatase 68 U/L 45-117 Anion Gap 11 mEq/L 8-16 BUN 41 mg/dL High 7-18 BUN/Creat 21.5 ratio Bilirubin,Total 0.5 mg/dL 0.2-1 Calcium 9.3 mg/dL 8.5-10.1 Carbon Dioxide 26 mmol/L 21-32 Chloride 100 mmol/L 98-107 Creatinine 1.9 mg/dL High 0.6-1.3 Globulin 3.5 g/dL 1.9-4.3 Glom Filtration Rate, Estimate 28 mL/min Glucose 132 mg/dL High 74-106 If 33 mL/min 82 Potassium 4.2 mmol/L 3.5-5.1 SGPT/Alt 21 U/L 12-78 Sgot/Ast 8 U/L Low 15-37 83 Sodium 137 mmol/L 136-145 Total Protein 7.3 g/dL 6.4-8.2 LDL Cholesterol Profile 03/04/2015 N2N/[place] ? Import Cholesterol 162 mg/dL 84 HDL Cholesterol 30 mg/dL 85 LDL-Cholesterol 90 mg/dL 86 Triglycerides 210 mg/dL 87 Laboratory test 10/20/2014 N2N/[place] ? Import Glycohemoglobin (A1c) 7.0 % High 4.2-6.3 88 finding Uric Acid 4.8 mg/dL 2.6-6 eAG 154 mg/dL CBC 10/20/2014 N2N/[place] ? Import Hematocrit 35.9 % Low 36-46.1 Hemoglobin 11.6 gm/dL 11.6-15.8 Mean Cell Volume 86.9 fl 80.9-99 Mean Corpuscular HGB 28.1 pg 25.9-32.7 Mean Corpuscular HGB Conc 32.3 g/dL 30.8-34.3 Mean Platelet Volume 11.3 fL 8.9-12.4 Platelet Count 229 K/uL 155-360 Red Blood Count 4.13 M/uL 3.9-5.4 Red Cell Distri Width %CV 14.5 % High 11.7-14.4 White Blood Count 8.1 K/uL 3.1-10.7 Comprehensive Metabolic Panel 10/20/2014 N2N/[place] ? Import Alb/Glob 1.1 ratio Albumin 3.9 g/dL 3.4-5 Alkaline Phosphatase 68 U/L 45-117 Anion Gap 12 mEq/L 8-16 BUN 54 mg/dL High 7-18 BUN/Creat 33.7 ratio Bilirubin,Total 0.3 mg/dL 0.2-1 Calcium 10.2 mg/dL High 8.5-10.1 Carbon Dioxide 23 mmol/L 21-32 Chloride 108 mmol/L High 98-107 Creatinine 1.6 mg/dL High 0.6-1.3 Globulin 3.7 g/dL 1.9-4.3 Glom Filtration Rate, Estimate 34 mL/min Glucose 130 mg/dL High 74-106 If 41 mL/min 89 Potassium 4.7 mmol/L 3.5-5.1 SGPT/Alt 21 U/L 12-78 Sgot/Ast 8 U/L Low 15-37 90 Sodium 138 mmol/L 136-145 Total Protein 7.6 g/dL 6.4-8.2 LDL Cholesterol Profile 10/20/2014 N2N/[place] ? Import Cholesterol 169 mg/dL 91 HDL Cholesterol 33 mg/dL 92 LDL-Cholesterol 108 mg/dL 93 Triglycerides 140 mg/dL 94 Laboratory test 07/14/2014 N2N/[place] ? Import Glycohemoglobin (A1c) 6.4 % High 4.2-6.3 95 finding Microalbumin,Random Urine < 5.0 mg/L Uric Acid 8.2 mg/dL High 2.6-6 eAG 137 mg/dL Comprehensive Metabolic Panel 07/14/2014 N2N/[place] ? Import Alb/Glob 1.0 ratio Albumin 3.9 g/dL 3.4-5 Alkaline Phosphatase 59 U/L 45-117 Anion Gap 11 mEq/L 8-16 BUN 36 mg/dL High 7-18 BUN/Creat 22.5 ratio Bilirubin,Total 0.4 mg/dL 0.2-1 Calcium 9.9 mg/dL 8.5-10.1 Carbon Dioxide 26 mmol/L 21-32 Chloride 104 mmol/L 98-107 Creatinine 1.6 mg/dL High 0.6-1.3 Globulin 3.8 g/dL 1.9-4.3 Glom Filtration Rate, Estimate 34 mL/min Glucose 113 mg/dL High 74-106 If 41 mL/min 96 Potassium 4.2 mmol/L 3.5-5.1 SGPT/Alt 20 U/L 12-78 Sgot/Ast 9 U/L Low 15-37 Sodium 137 mmol/L 136-145 Total Protein 7.7 g/dL 6.4-8.2 LDL Cholesterol Profile 07/14/2014 N2N/[place] ? Import Cholesterol 157 mg/dL 97 HDL Cholesterol 36 mg/dL 98 LDL-Cholesterol 80 mg/dL 99 Triglycerides 207 mg/dL 100 Laboratory test 04/16/2014 N2N/[place] ? Import Glycohemoglobin (A1c) 7.9 % High 4.8-6 101 finding eAG 180 mg/dL CBC 04/16/2014 N2N/[place] ? Import Hematocrit 36.8 % 36-46.1 Hemoglobin 11.5 gm/dL Low 11.6-15.8 Mean Cell Volume 84.4 fl 80.9-99 Mean Corpuscular HGB 26.4 pg 25.9-32.7 Mean Corpuscular HGB Conc 31.3 g/dL 30.8-34.3 Mean Platelet Volume 11.3 fL 8.9-12.4 Platelet Count 188 K/uL 155-360 Red Blood Count 4.36 M/uL 3.9-5.4 Red Cell Distri Width %CV 15.3 % High 11.7-14.4 White Blood Count 6.6 K/uL 3.1-10.7 Comprehensive Metabolic Panel 04/16/2014 [employer] ? Import Alb/Glob 1.0 ratio Albumin 3.6 g/dL 3.5-5 Alkaline Phosphatase 76 U/L 50-136 Anion Gap 10 mEq/L 8-16 BUN 36 mg/dL High 5-23 BUN/Creat 30.0 ratio Bilirubin,Total 0.3 mg/dL 0.2-1.2 Calcium 10.0 mg/dL 8.5-10.1 Carbon Dioxide 28 mEq/L 18-29 Chloride 104 mmol/L 98-107 Creatinine 1.2 mg/dL 0.5-1.4 Globulin 3.6 g/dL 1.9-4.3 Glom Filtration Rate, Estimate 47 mL/min Glucose 110 mg/dL 76-115 If 57 mL/min 102 Potassium 4.0 mmol/L 3.5-5.1 SGPT/Alt 26 U/L Low 30-65 Sgot/Ast 16 U/L 16-40 Sodium 138 mmol/L 136-145 Total Protein 7.2 g/dL 6.3-8 Laboratory test 01/13/2014 N2N/CCD Import Glycohemoglobin (A1c) 8.1 % High 4.8-6 103 finding eAG 186 mg/dL Laboratory test 12/09/2013 N2N/CCD Import Glycohemoglobin (A1c) 8.0 % High 4.8-6 104 finding Thyroid Stim Hormone 1.03 uIU/mL 0.49-4.67 105 eAG 183 mg/dL Comprehensive Metabolic Panel 12/09/2013 N2N/CCD Import Alb/Glob 1.0 ratio Albumin 3.8 g/dL 3.5-5 Alkaline Phosphatase 71 U/L 50-136 Anion Gap 12 mEq/L 8-16 BUN 37 mg/dL High 5-23 BUN/Creat 30.8 ratio Bilirubin,Total 0.4 mg/dL 0.2-1.2 Calcium 9.0 mg/dL 8.5-10.1 Carbon Dioxide 28 mEq/L 18-29 Chloride 104 mmol/L 98-107 Creatinine 1.2 mg/dL 0.5-1.4 Globulin 3.8 g/dL 1.9-4.3 Glom Filtration Rate, Estimate 47 mL/min Glucose 134 mg/dL High 76-115 If 57 mL/min 106 Potassium 3.6 mmol/L 3.5-5.1 SGPT/Alt 34 U/L 30-65 Sgot/Ast 20 U/L 16-40 Sodium 140 mmol/L 136-145 Total Protein 7.6 g/dL 6.3-8 LDL Cholesterol Profile 12/09/2013 N2N/[place] ? Import Cholesterol 122 mg/dL 120-200 HDL Cholesterol 30 mg/dL 29-83 LDL-Cholesterol 55 mg/dL Low 62-185 Triglycerides 184 mg/dL 16-231 Laboratory test 11/06/2013 N2N/[place] ? Import Glycohemoglobin (A1c) 8.0 % High 4.8-6 107 finding Uric Acid 4.6 mg/dL 2.1-7.4 eAG 183 mg/dL Comprehensive Metabolic Panel 11/06/2013 N2N/CCD Import Alb/Glob 1.1 ratio Albumin 4.0 g/dL 3.5-5 Alkaline Phosphatase 70 U/L 50-136 Anion Gap 11 mEq/L 8-16 BUN 36 mg/dL High 5-23 BUN/Creat 25.7 ratio Bilirubin,Total 0.3 mg/dL 0.2-1.2 Calcium 9.7 mg/dL 8.5-10.1 Carbon Dioxide 29 mEq/L 18-29 Chloride 104 mmol/L 98-107 Creatinine 1.4 mg/dL 0.5-1.4 Globulin 3.6 g/dL 1.9-4.3 Glom Filtration Rate, Estimate 39 mL/min Glucose 141 mg/dL High 76-115 If 48 mL/min 108 Potassium 3.7 mmol/L 3.5-5.1 SGPT/Alt 40 U/L 30-65 Sgot/Ast 24 U/L 16-40 Sodium 140 mmol/L 136-145 Total Protein 7.6 g/dL 6.3-8 LDL Cholesterol Profile 11/06/2013 N2N/CCD Import Cholesterol 132 mg/dL 120-200 HDL Cholesterol 28 mg/dL Low 29-83 LDL-Cholesterol 59 mg/dL Low 62-185 Triglycerides 226 mg/dL 16-231 Laboratory test 08/21/2013 N2N/CCD Import Glycohemoglobin (A1c) 9.2 % High 4.8-6 109 finding Thyroid Stim Hormone 2.61 uIU/mL 0.49-4.67 Uric Acid 5.8 mg/dL 2.1-7.4 eAG 217 mg/dL Comprehensive Metabolic Panel 08/21/2013 N2N/CCD Import Alb/Glob 1.1 ratio Albumin 3.7 g/dL 3.5-5 Alkaline Phosphatase 57 U/L 50-136 Anion Gap 13 mEq/L 8-16 BUN 35 mg/dL High 5-23 BUN/Creat 23.3 ratio Bilirubin,Total 0.3 mg/dL 0.2-1.2 Calcium 9.1 mg/dL 8.5-10.1 Carbon Dioxide 27 mEq/L 18-29 Chloride 100 mmol/L 98-107 Creatinine 1.5 mg/dL High 0.5-1.4 Globulin 3.3 g/dL 1.9-4.3 Glom Filtration Rate, Estimate 36 mL/min Glucose 196 mg/dL High 76-115 If 44 mL/min 110 Potassium 3.4 mmol/L Low 3.5-5.1 SGPT/Alt 54 U/L 30-65 Sgot/Ast 28 U/L 16-40 Sodium 137 mmol/L 136-145 Total Protein 7.0 g/dL 6.3-8 LDL Cholesterol Profile 08/21/2013 N2N/CCD Import Cholesterol 147 mg/dL 120-200 HDL Cholesterol 27 mg/dL Low 29-83 LDL-Cholesterol See Note mg/dL 62-185 111 Triglycerides 401 mg/dL High 16-231 Laboratory test 07/31/2013 N2N/CCD Import Glycohemoglobin (A1c) 8.6 % High 4.8-6 112 finding eAG 200 mg/dL CBS W/Automated Diff 07/31/2013 N2N/CCD Import Bas% 1.0 % 0-1.1 Baso # 0.07 K/uL 0-0.1 Eo% 3.6 % 0-6.6 Eos # 0.25 K/uL 0-0.5 Hematocrit 37.4 % 36-46.1 Hemoglobin 11.9 gm/dL 11.6-15.8 Lymph # 2.14 K/uL 0.8-3.4 Lymph % 30.6 % 17-46.1 Mean Cell Volume 87.4 fl 80.9-99 Mean Corpuscular HGB 27.8 pg 25.9-32.7 Mean Corpuscular HGB Conc 31.8 g/dL 30.8-34.3 Mean Platelet Volume 11.5 fL 8.9-12.4 [place] # 0.67 K/uL 0.3-0.9 [place] % 9.6 % 4.3-13.2 Neut# 3.87 K/uL 1-7 Neut% 55.2 % 40.4-72.8 Platelet Count 230 K/uL 155-360 Red Blood Count 4.28 M/uL 3.9-5.4 Red Cell Distri Width %CV 15.3 % High 11.7-14.4 Red Cell Distri Width SD 48.1 fl High 3-47 White Blood Count 7.0 K/uL 3.1-10.7 Comprehensive Metabolic Panel 07/31/2013 N2N/CCD Import Alb/Glob 1.2 ratio Albumin 3.8 g/dL 3.5-5 Alkaline Phosphatase 67 U/L 50-136 Anion Gap 11 mEq/L 8-16 BUN 35 mg/dL High 5-23 BUN/Creat 19.4 ratio Bilirubin,Total 0.4 mg/dL 0.2-1.2 Calcium 9.9 mg/dL 8.5-10.1 Carbon Dioxide 28 mEq/L 18-29 Chloride 102 mmol/L 98-107 Creatinine 1.8 mg/dL High 0.5-1.4 Globulin 3.2 g/dL 1.9-4.3 Glom Filtration Rate, Estimate 29 mL/min Glucose 245 mg/dL High 76-115 If 36 mL/min 113 Potassium 3.9 mmol/L 3.5-5.1 SGPT/Alt 54 U/L 30-65 Sgot/Ast 29 U/L 16-40 Sodium 137 mmol/L 136-145 Total Protein 7.0 g/dL 6.3-8 LDL Cholesterol Profile 07/31/2013 N2N/CCD Import Cholesterol 163 mg/dL 120-200 HDL Cholesterol 29 mg/dL 29-83 LDL-Cholesterol See Note mg/dL 62-185 114 Triglycerides 437 mg/dL High 16-231 Basic Metabolic Panel 05/14/2013 N2N/CCD Import Anion Gap 12 mEq/L 8-16 BUN 38 mg/dL High 5-23 BUN/Creat 21.1 ratio Calcium 9.0 mg/dL 8.5-10.1 Carbon Dioxide 29 mEq/L 18-29 Chloride 103 mmol/L 98-107 Creatinine 1.8 mg/dL High 0.5-1.4 Glom Filtration Rate, Estimate 29 mL/min Glucose 131 mg/dL High 76-115 If 36 mL/min 115 Potassium 4.4 mmol/L 3.5-5.1 Sodium 140 mmol/L 136-145 Comprehensive Metabolic Panel 05/14/2013 N2N/CCD Import Alb/Glob 1.1 ratio Albumin 3.8 g/dL 3.5-5 Alkaline Phosphatase 78 U/L 50-136 Anion Gap 12 mEq/L 8-16 BUN 38 mg/dL High 5-23 BUN/Creat 21.1 ratio Bilirubin,Total 0.4 mg/dL 0.2-1.2 Calcium 9.0 mg/dL 8.5-10.1 Carbon Dioxide 29 mEq/L 18-29 Chloride 103 mmol/L 98-107 Creatinine 1.8 mg/dL High 0.5-1.4 Globulin 3.4 g/dL 1.9-4.3 Glom Filtration Rate, Estimate 29 mL/min Glucose 131 mg/dL High 76-115 If 36 mL/min 116 Potassium 4.4 mmol/L 3.5-5.1 SGPT/Alt 26 U/L Low 30-65 Sgot/Ast 10 U/L Low 16-40 Sodium 140 mmol/L 136-145 Total Protein 7.2 g/dL 6.3-8 Laboratory test finding 04/15/2013 N2N/CCD Import Potassium 5.1 mmol/L 3.5-5.1 Laboratory test finding 04/14/2013 N2N/CCD Import Potassium 5.6 mmol/L High 3.5-5.1 Laboratory test finding 04/13/2013 N2N/CCD Import Anion Gap 16 mEq/L 8- 16 BUN 77 mg/dL High 5-23 BUN/Creat 30.8 ratio Calcium 9.2 mg/dL 8.5-10.1 Carbon Dioxide 19 mEq/L 18-29 Chloride 108 mmol/L High 98-107 Creatinine 2.5 mg/dL High 0.5-1.4 Glom Filtration Rate, Estimate 20 mL/min Glucose 91 mg/dL 76-115 If 24 mL/min 117 NT-proBNP 144.0 pg/mL Potassium 6.0 mmol/L High 3.5-5.1 Sodium 137 mmol/L 136-145 Laboratory test 04/13/2013 N2N/CCD Import Glycohemoglobin (A1c) 6.5 % High 4.8-6 118 finding eAG 140 mg/dL Comprehensive Metabolic Panel 04/13/2013 N2N/CCD Import Alb/Glob 1.0 ratio Albumin 3.8 g/dL 3.5-5 Alkaline Phosphatase 54 U/L 50-136 Anion Gap 16 mEq/L 8-16 BUN 74 mg/dL High 5-23 BUN/Creat 30.8 ratio Bilirubin,Total 0.2 mg/dL 0.2-1.2 Calcium 9.4 mg/dL 8.5-10.1 Carbon Dioxide 20 mEq/L 18-29 Chloride 108 mmol/L High 98-107 Creatinine 2.4 mg/dL High 0.5-1.4 Globulin 3.7 g/dL 1.9-4.3 Glom Filtration Rate, Estimate 21 mL/min Glucose 94 mg/dL 76-115 If 26 mL/min 119 Potassium 6.1 mmol/L High 3.5-5.1 SGPT/Alt 21 U/L Low 30-65 Sgot/Ast 10 U/L Low 16-40 Sodium 138 mmol/L 136-145 Total Protein 7.5 g/dL 6.3-8 LDL Cholesterol Profile 04/13/2013 N2N/[place] ? Import Cholesterol 143 mg/dL 120-200 HDL Cholesterol 31 mg/dL 29-83 LDL-Cholesterol 73 mg/dL 62-185 Triglycerides 197 mg/dL 16-231 Laboratory test 01/21/2013 N2N/[place] ? Import Glycohemoglobin (A1c) 6.5 % High 4.8-6 120 finding Thyroid Stim Hormone 3.07 uIU/mL 0.49-4.67 eAG 140 mg/dL Comprehensive Metabolic Panel 01/21/2013 [employer] ? Import Alb/Glob 1.2 ratio Albumin 4.0 g/dL 3.5-5 Alkaline Phosphatase 58 U/L 50-136 Anion Gap 13 mEq/L 8-16 BUN 48 mg/dL High 5-23 BUN/Creat 28.2 ratio Bilirubin,Total 0.3 mg/dL 0.2-1.2 Calcium 9.4 mg/dL 8.5-10.1 Carbon Dioxide 27 mEq/L 18-29 Chloride 106 mmol/L 98-107 Creatinine 1.7 mg/dL High 0.5-1.4 Globulin 3.3 g/dL 1.9-4.3 Glom Filtration Rate, Estimate 31 mL/min Glucose 119 mg/dL High 76-115 If 38 mL/min 121 Potassium 4.7 mmol/L 3.5-5.1 SGPT/Alt 24 U/L Low 30-65 Sgot/Ast 7 U/L Low 16-40 Sodium 141 mmol/L 136-145 Total Protein 7.3 g/dL 6.3-8 LDL Cholesterol Profile 01/21/2013 [employer] ? Import Cholesterol 152 mg/dL 120-200 HDL Cholesterol 34 mg/dL 29-83 LDL-Cholesterol 78 mg/dL 62-185 Triglycerides 198 mg/dL 16-231 Laboratory test 09/05/2012 N2N/[place] ? Import B Type Natriuretic 32.0 pg/mL 0-100 finding Peptide Troponin I 0 ng/mL 0-0.06 122 Comp Metabolic Panel 09/05/2012 N2N/[place] ? Import Albumin 4.0 g/dL 3.2-5.2 Albumin/Globulin Ratio 1.4 1 1-3 Alkaline Phosphatase 61 U/L 30-110 Alt 22 U/L 14-54 Anion Gap 6.0 mmol/L 2-11 Ast 18 U/L 12-42 BUN/Creatinine Ratio 23.3 1 High 8-20 Blood Urea Nitrogen 28 mg/dL High 6-24 Calcium 9.1 mg/dL 8.1-9.9 Chloride 105 mmol/L 101-111 Co2 Carbon Dioxide 27.0 mmol/L 22-32 Creatinine 1.20 mg/dL 0.5-1.4 Egfr 57.0 1 123 Egfr Non- 44.3 1 Globulin 2.8 g/dL 2-4 Glucose 97 mg/dL 70-100 Potassium 4.9 mmol/L 3.5-5 Sodium 138 mmol/L 133-145 Total Bilirubin 0.5 mg/dL 0.4-1.5 Total Protein 6.8 g/dL 6.2-8.1 CBC With Manual Diff 09/05/2012 N2N/CCD Import Abs Basophils 0.1 10^3/uL 0-0.2 Abs Eosinophils 0.2 10^3/uL 0-0.6 Abs Lymphocytes 1.1 10^3/uL 1-4.8 Abs Monocytes 0.9 10^3/uL High 0-0.8 Abs Neutrophils 4.5 10^3/uL 1.5-7.7 Abs Nucleated RBC 0 10^3/uL Band % 2.0 % 0-8 Basophil % 0 % 0-2 Blast % 0 % Eosinophils % 1.0 % 0-6 Hematocrit 33 % Low 35-47 Hemoglobin 10.8 g/dL Low 12-16 Hypochromasia 1+ Lymphocytes % 14.0 % Low 25-47 Mean Corpuscular HGB Conc 32 g/dL 31-36 Mean Corpuscular Hemoglobin 27 pg 27-31 Mean Corpuscular Volume 83 fL 80-97 Mean Platelet Volume 9 um3 7.4-10.4 Metamyelocytes % 0 % 0-2 Microcytosis 1+ Monocytes % 9.0 % 0-13 Myelocytes % 0 % 0-1 Neutrophil % 74.0 % 38-83 Platelet Count 218 10^3/uL 150-450 Promyelocytes % 0 % Reactive Lymph % 0 % 0-6 Red Blood Count 4.00 10^6/uL 4-5.4 Red Cell Distribution Width 16 % High 10.5-15 White Blood Count 6.7 10^3/uL 4.8-10.8 Laboratory test 07/25/2012 N2N/CCD Import Glycohemoglobin (A1c) 7.9 % High 4.8-6 124 finding eAG 180 mg/dL Comprehensive Metabolic Panel 07/25/2012 N2N/CCD Import Alb/Glob 1.1 ratio Albumin 4.0 g/dL 3.5-5 Alkaline Phosphatase 55 U/L 50-136 Anion Gap 15 mEq/L 8-16 BUN 33 mg/dL High 5-23 BUN/Creat 23.5 ratio Bilirubin,Total 0.3 mg/dL 0.2-1.2 Calcium 9.2 mg/dL 8.5-10.1 Carbon Dioxide 24 mEq/L 18-29 Chloride 106 mmol/L 98-107 Creatinine 1.4 mg/dL 0.5-1.4 Globulin 3.7 g/dL 1.9-4.3 Glom Filtration Rate, Estimate 39 mL/min Glucose 118 mg/dL High 76-115 If 48 mL/min 125 Potassium 5.1 mmol/L 3.5-5.1 SGPT/Alt 28 U/L Low 30-65 Sgot/Ast 8 U/L Low 16-40 Sodium 140 mmol/L 136-145 Total Protein 7.7 g/dL 6.3-8 Comprehensive Metabolic Panel 05/06/2012 N2N/CCD Import Alb/Glob 1.0 ratio Albumin 3.8 g/dL 3.5-5 Alkaline Phosphatase 55 U/L 50-136 Anion Gap 13 mEq/L 8-16 BUN 23 mg/dL 5-23 BUN/Creat 19.1 ratio Bilirubin,Total 0.4 mg/dL 0.2-1.2 Calcium 9.4 mg/dL 8.5-10.1 Carbon Dioxide 28 mEq/L 18-29 Chloride 103 mmol/L 98-107 Creatinine 1.2 mg/dL 0.5-1.4 Globulin 3.8 g/dL 1.9-4.3 Glom Filtration Rate, Estimate 47 mL/min Glucose 161 mg/dL High 76-115 If 57 mL/min 126 Potassium 4.4 mmol/L 3.5-5.1 SGPT/Alt 25 U/L Low 30-65 Sgot/Ast 10 U/L Low 16-40 Sodium 140 mmol/L 136-145 Total Protein 7.6 g/dL 6.3-8 Comprehensive Metabolic Panel 03/05/2012 N2N/CCD Import Alb/Glob 1.2 ratio Albumin 3.9 g/dL 3.5-5 Alkaline Phosphatase 63 U/L 50-136 Anion Gap 16 mEq/L 8-16 BUN 23 mg/dL 5-23 BUN/Creat 19.1 ratio Bilirubin,Total 0.3 mg/dL 0.2-1.2 Calcium 9.2 mg/dL 8.5-10.1 Carbon Dioxide 26 mEq/L 18-29 Chloride 105 mmol/L 98-107 Creatinine 1.2 mg/dL 0.5-1.4 Globulin 3.2 g/dL 1.9-4.3 Glom Filtration Rate, Estimate 47 mL/min Glucose 107 mg/dL 76-115 If 57 mL/min 127 Potassium 4.7 mmol/L 3.5-5.1 SGPT/Alt 26 U/L Low 30-65 Sgot/Ast 10 U/L Low 16-40 Sodium 142 mmol/L 136-145 Total Protein 7.1 g/dL 6.3-8 Laboratory test 03/05/2012 N2N/CCD Import Thyroid Stim 1.83 uIU/mL 0.49- 4.67 finding Hormone CBC W/Automated 03/05/2012 N2N/CCD Import Bas% 0.5 % 0-1.1 Diff Baso # 0.03 K/uL 0-0.1 Eo% 4.0 % 0-6.6 Eos # 0.26 K/uL 0-0.5 Hematocrit 35.7 % Low 36-46.1 Hemoglobin 11.0 gm/dL Low 11.6-15.8 Lymph # 1.48 K/uL 0.8-3.4 Lymph % 22.6 % 17-46.1 Mean Cell Volume 85.2 fl 80.9-99 Mean Corpuscular HGB 26.3 pg 25.9-32.7 Mean Corpuscular HGB Conc 30.8 g/dL 30.8-34.3 Mean Platelet Volume 10.8 fL 8.9-12.4 [place] # 0.87 K/uL 0.3-0.9 [place] % 13.3 % High 4.3-13.2 Neut# 3.90 K/uL 1-7 Neut% 59.6 % 40.4-72.8 Platelet Count 238 K/uL 155-360 Red Blood Count 4.19 M/uL 3.9-5.4 Red Cell Distri Width %CV 15.8 % High 11.7-14.4 Red Cell Distri Width SD 47.7 fl High 3-47 White Blood Count 6.5 K/uL 3.1-10.7 LDL Cholesterol Profile 01/18/2012 N2N/CCD Import Cholesterol 141 mg/dL 120-200 HDL Cholesterol 39 mg/dL 29-83 LDL-Cholesterol 64 mg/dL 62-185 Triglycerides 192 mg/dL 16-231 Laboratory test 01/18/2012 N2N/CCD Import Glycohemoglobin (A1c) 7.0 % High 4.8-6 128 finding Thyroid Stim Hormone 2.11 uIU/mL 0.49-4.67 Vitamin B12 439 pg/mL 311-1180 129 Vitamin D,25-Hydroxy 19.5 ng/mL Low 30-100 130 eAG 154 mg/dL CBC W/Automated Diff 01/18/2012 N2N/CCD Import Bas% 0.6 % 0-1.1 Baso # 0.04 K/uL 0-0.1 Eo% 4.0 % 0-6.6 Eos # 0.27 K/uL 0-0.5 Hematocrit 35.1 % Low 36-46.1 Hemoglobin 10.7 gm/dL Low 11.6-15.8 Lymph # 1.83 K/uL 0.8-3.4 Lymph % 26.9 % 17-46.1 Mean Cell Volume 85.2 fl 80.9-99 Mean Corpuscular HGB 26.0 pg 25.9-32.7 Mean Corpuscular HGB Conc 30.5 g/dL Low 30.8-34.3 Mean Platelet Volume 11.0 fL 8.9-12.4 [place] # 0.66 K/uL 0.3-0.9 [place] % 9.7 % 4.3-13.2 Neut# 4.01 K/uL 1-7 Neut% 58.8 % 40.4-72.8 Platelet Count 252 K/uL 155-360 Red Blood Count 4.12 M/uL 3.9-5.4 Red Cell Distri Width %CV 15.3 % High 11.7-14.4 Red Cell Distri Width SD 46.8 fl 3-47 White Blood Count 6.8 K/uL 3.1-10.7 Comprehensive Metabolic Panel 01/18/2012 N2N/CCD Import Alb/Glob 1.4 ratio Albumin 4.1 g/dL 3.5-5 Alkaline Phosphatase 47 U/L Low 50-136 Anion Gap 12 mEq/L 8-16 BUN 29 mg/dL High 5-23 BUN/Creat 24.1 ratio Bilirubin,Total 0.6 mg/dL 0.2-1.2 Calcium 9.2 mg/dL 8.5-10.1 Carbon Dioxide 26 mEq/L 18-29 Chloride 106 mmol/L 98-107 Creatinine 1.2 mg/dL 0.5-1.4 Globulin 3.0 g/dL 1.9-4.3 Glom Filtration Rate, Estimate 47 mL/min Glucose 127 mg/dL High 76-115 If 57 mL/min 131 Potassium 5.3 mmol/L High 3.5-5.1 SGPT/Alt 30 U/L 30-65 Sgot/Ast 11 U/L Low 16-40 Sodium 139 mmol/L 136-145 Total Protein 7.1 g/dL 6.3-8 Laboratory test 10/17/2011 N2N/CCD Import Glycohemoglobin (A1c) 7.1 % High 4.8-6 132 finding Microalbumin,Random Urine 9.5 mg/L 0-18.5 Thyroid Stim Hormone 1.17 uIU/mL 0.49-4.67 Uric Acid 3.7 mg/dL 2.1-7.4 eAG 157 mg/dL CBC W/Automated Diff 10/17/2011 N2N/CCD Import Bas% 0.7 % 0-1.1 Baso # 0.04 K/uL 0-0.1 Eo% 5.0 % 0-6.6 Eos # 0.28 K/uL 0-0.5 Hematocrit 33.4 % Low 36-46.1 Hemoglobin 10.7 gm/dL Low 11.6-15.8 Lymph # 1.67 K/uL 0.8-3.4 Lymph % 29.7 % 17-46.1 Mean Cell Volume 85.4 fl 80.9-99 Mean Corpuscular HGB 27.4 pg 25.9-32.7 Mean Corpuscular HGB Conc 32.0 g/dL 30.8-34.3 Mean Platelet Volume 10.7 fL 8.9-12.4 [place] # 0.59 K/uL 0.3-0.9 [place] % 10.5 % 4.3-13.2 Neut# 3.04 K/uL 1-7 Neut% 54.1 % 40.4-72.8 Platelet Count 223 K/uL 155-360 Red Blood Count 3.91 M/uL 3.9-5.4 Red Cell Distri Width %CV 15.7 % High 11.7-14.4 Red Cell Distri Width SD 48.3 fl High 3-47 White Blood Count 5.6 K/uL 3.1-10.7 Comprehensive Metabolic Panel 10/17/2011 N2N/CCD Import Alb/Glob 1.4 ratio Albumin 4.1 g/dL 3.5-5 Alkaline Phosphatase 52 U/L 50-136 Anion Gap 15 mEq/L 8-16 BUN 31 mg/dL High 5-23 BUN/Creat 25.8 ratio Bilirubin,Total 0.3 mg/dL 0.2-1.2 Calcium 9.3 mg/dL 8.5-10.1 Carbon Dioxide 24 mEq/L 18-29 Chloride 106 mmol/L 98-107 Creatinine 1.2 mg/dL 0.5-1.4 Globulin 2.9 g/dL 1.9-4.3 Glom Filtration Rate, Estimate 47 mL/min Glucose 123 mg/dL High 76-115 If 57 mL/min 133 Potassium 5.2 mmol/L High 3.5-5.1 SGPT/Alt 28 U/L Low 30-65 Sgot/Ast 11 U/L Low 16-40 Sodium 140 mmol/L 136-145 Total Protein 7.0 g/dL 6.3-8 LDL Cholesterol Profile 10/17/2011 N2N/CCD Import Cholesterol 145 mg/dL 120-200 HDL Cholesterol 35 mg/dL 29-83 LDL-Cholesterol 71 mg/dL 62-185 Triglycerides 197 mg/dL 16-231 1 E11.40 E03.9 E66.01 2 Elevated levels of HbA1c suggest the need for more aggressive treatment of glycemia. The [place] [employer] recommends that a primary goal of therapy should be a HbA1c of <7% and that physicians should re-evaluate the treatment regimen in patients with HbA1c values consistently >8%. 3 Thyroglobulin Antibody measured by [employer] Performed at: RN - [facility] [address] [id number] [employer] Operator: Marcela Mace MD, Phone: [phone] 4 Vitamin D deficiency has been defined by the [place] of [employer] and an Endocrine Society practice guideline as a level of serum 25-OH vitamin D less than 20 ng/mL (1,2). The Endocrine Society went on to further define vitamin D insufficiency as a level between 21 and 29 ng/mL (2). 1. IOM ([place] of [employer]). 2010. Dietary reference intakes for calcium and D. [place]: The National Academies Press. 2. Lexi MF, Leydi DURAN, Julio C GTZ, et al. Evaluation, treatment, and prevention of vitamin D deficiency: an Endocrine Society clinical practice guideline. JCEM. 2010; 96(7):1911-30. Performed at: RN - [facility] [address] [id number] [employer] Operator: Marcela Mace MD, Phone: [phone] 5 Note: Persistent reduction for 3 months or more in an eGFR <60 mL/min/1.73 m2 defines CKD. Patients with eGFR values >/=60 mL/min/1.73 m2 may also have CKD if evidence of persistent proteinuria is present. The original MDRD equation for estimated GFR is not valid for patients less than 18 years of age. Additional information may be found at www.kdoqi.org. 6 Values below the stated reference ranges of AST and ALT can be seen in normal populations. Clinical correlation is suggested. 7 Reference Guidelines*: Desirable: ........... < 200 mg/dL Borderline High: ..... 200-239 mg/dL High: ................ >=240 mg/dL * The National Cholesterol Education Program (NCEP) 8 Reference Guidelines*: Low HDL: ..... < 40 mg/dL Normal: ..... 40-60 mg/dL Desirable: ... > 60 mg/dL *The National Cholesterol Education Program(NCEP) 9 Reference Guidelines*: Optimal:........... <100 mg/dL Near Optimal....... 100-129 mg/dL Borderline High.... 130-159 mg/dL High............... 160-189 mg/dL Very High.......... >=190 mg/dL * Source: National Cholesterol Education Program (NCEP) 10 Reference Guidelines*: Normal: ............. < 150 mg/dL Borderline High: .... 150-199 mg/dL High: ............... 200-499 mg/dL Very High: .......... > 500 mg/dL * Source: National Cholesterol Education Program (NCEP) 11 [id number] 12 SEE RESULT BELOW Name: MOODYLIGIA A : [address]: Epi Covarrubias MD Acct: [id number] Unit: [id number] AGE: 77 Location: [facility] Re04/14/18 SEX: F Status: REG REF SPEC: [id number] YOJANA: 04/14/18-1500 [facility] DR: Epi Covarrubias MD REQ: [id number] RECD: 04/14/18 STATUS: SOUT _ ORDERED: LEVEL 3 COMMENTS: [id number] FINAL DIAGNOSIS Skin, right shoulder, excisional biopsy: -- Nevus lipomatosis superficialis (dermatolipoma). PRE-OPERATIVE DIAGNOSIS Nodular lesion right shoulder ? non-healing, ulcerated GROSS DESCRIPTION The specimen is received in formalin labeled, Right Shoulder Mole, and consists of a 1.3 x 1.1 x 0.9 cm reddy-white wrinkled to crusted brown ovoid skin nodule which is inked, serially sectioned and entirely submitted in one cassette. Signed by and Reported on: Ligia Fontanez MD 04/16/18 1516 END OF REPORT DEPARTMENT OF PATHOLOGY, [address] [place] [address] Lance Arevalo M.D. Director [facility] # [id number] 13 E11.40 E03.9 I10 N25.9 14 Elevated levels of HbA1c suggest the need for more aggressive treatment of glycemia. The [place] [employer] recommends that a primary goal of therapy should be a HbA1c of <7% and that physicians should re-evaluate the treatment regimen in patients with HbA1c values consistently >8%. 15 Note: Persistent reduction for 3 months or more in an eGFR <60 mL/min/1.73 m2 defines CKD. Patients with eGFR values >/=60 mL/min/1.73 m2 may also have CKD if evidence of persistent proteinuria is present. The original MDRD equation for estimated GFR is not valid for patients less than 18 years of age. Additional information may be found at www.[email or web address]. 16 Reference Guidelines*: Desirable: ........... < 200 mg/dL Borderline High: ..... 200-239 mg/dL High: ................ >=240 mg/dL * The National Cholesterol Education Program (NCEP) 17 Reference Guidelines*: Low HDL: ..... < 40 mg/dL Normal: ..... 40-60 mg/dL Desirable: ... > 60 mg/dL *The National Cholesterol Education Program(NCEP) 18 Reference Guidelines*: Optimal:........... <100 mg/dL Near Optimal....... 100-129 mg/dL Borderline High.... 130-159 mg/dL High............... 160-189 mg/dL Very High.......... >=190 mg/dL * Source: National Cholesterol Education Program (NCEP) 19 Reference Guidelines*: Normal: ............. < 150 mg/dL Borderline High: .... 150-199 mg/dL High: ............... 200-499 mg/dL Very High: .......... > 500 mg/dL * Source: National Cholesterol Education Program (NCEP) 20 SYNCOPY 21 Result confirmed by repeat analysis. 22 0.0 - 0.045 ng/mL: Normal 0.046 - 0.5 ng/mL: Suggestive 0.6 - 1.5 ng/mL: Consistent 23 Note: Persistent reduction for 3 months or more in an eGFR <60 mL/min/1.73 m2 defines CKD. Patients with eGFR values >/=60 mL/min/1.73 m2 may also have CKD if evidence of persistent proteinuria is present. The original MDRD equation for estimated GFR is not valid for patients less than 18 years of age. Additional information may be found at www.[email or web address]. 24 Values below the stated reference ranges of AST and ALT can be seen in normal populations. Clinical correlation is suggested. 25 THERAPEUTIC INR RANGE: 2.0 - 3.0 DVT, Pulmonary embolus, prophylaxis against venous thrombosis or systemic embolization in high risk patients. 2.5 - 3.5 Mechanical heart valves 26 E11.40 I10 E03.9 Z68.43 27 Elevated levels of HbA1c suggest the need for more aggressive treatment of glycemia. The [place] [employer] recommends that a primary goal of therapy should be a HbA1c of <7% and that physicians should re-evaluate the treatment regimen in patients with HbA1c values consistently >8%. 28 Vitamin D deficiency has been defined by the [place] [employer] and an Endocrine Society practice guideline as a level of serum 25-OH vitamin D less than 20 ng/mL (1,2). The Endocrine Society went on to further define vitamin D insufficiency as a level between 21 and 29 ng/mL (2). 1. IOM ([place] [employer]). 2010. Dietary reference intakes for calcium and D. [place]: The National Academies Press. 2. Lexi MF, Leydi NC, Julio C GTZ, et al. Evaluation, treatment, and prevention of vitamin D deficiency: an Endocrine Society clinical practice guideline. JCEM. 2010; 96(7):1911-30. Performed at: RN - [facility] [address] [id number] [employer] Ticket Machine Operator: Marcela Mace MD, Phone: [phone] 29 Note: Persistent reduction for 3 months or more in an eGFR <60 mL/min/1.73 m2 defines CKD. Patients with eGFR values >/=60 mL/min/1.73 m2 may also have CKD if evidence of persistent proteinuria is present. The original MDRD equation for estimated GFR is not valid for patients less than 18 years of age. Additional information may be found at www.[email or web address]. 30 Values below the stated reference ranges of AST and ALT can be seen in normal populations. Clinical correlation is suggested. 31 Reference Guidelines*: Desirable: ........... < 200 mg/dL Borderline High: ..... 200-239 mg/dL High: ................ >=240 mg/dL * The National Cholesterol Education Program (NCEP) 32 Reference Guidelines*: Low HDL: ..... < 40 mg/dL Normal: ..... 40-60 mg/dL Desirable: ... > 60 mg/dL *The National Cholesterol Education Program(NCEP) 33 Reference Guidelines*: Optimal:........... <100 mg/dL Near Optimal....... 100-129 mg/dL Borderline High.... 130-159 mg/dL High............... 160-189 mg/dL Very High.......... >=190 mg/dL * Source: National Cholesterol Education Program (NCEP) 34 Reference Guidelines*: Normal: ............. < 150 mg/dL Borderline High: .... 150-199 mg/dL High: ............... 200-499 mg/dL Very High: .......... > 500 mg/dL * Source: National Cholesterol Education Program (NCEP) 35 E11.40 36 Elevated levels of HbA1c suggest the need for more aggressive treatment of glycemia. The [place] [employer] recommends that a primary goal of therapy should be a HbA1c of <7% and that physicians should re-evaluate the treatment regimen in patients with HbA1c values consistently >8%. 37 Note: Persistent reduction for 3 months or more in an eGFR <60 mL/min/1.73 m2 defines CKD. Patients with eGFR values >/=60 mL/min/1.73 m2 may also have CKD if evidence of persistent proteinuria is present. The original MDRD equation for estimated GFR is not valid for patients less than 18 years of age. Additional information may be found at www.[email or web address]. 38 Values below the stated reference ranges of AST and ALT can be seen in normal populations. Clinical correlation is suggested. 39 Reference Guidelines*: Desirable: ........... < 200 mg/dL Borderline High: ..... 200-239 mg/dL High: ................ >=240 mg/dL * The National Cholesterol Education Program (NCEP) 40 Reference Guidelines*: Low HDL: ..... < 40 mg/dL Normal: ..... 40-60 mg/dL Desirable: ... > 60 mg/dL *The National Cholesterol Education Program(NCEP) 41 Reference Guidelines*: Optimal:........... <100 mg/dL Near Optimal....... 100-129 mg/dL Borderline High.... 130-159 mg/dL High............... 160-189 mg/dL Very High.......... >=190 mg/dL * Source: National Cholesterol Education Program (NCEP) 42 Reference Guidelines*: Normal: ............. < 150 mg/dL Borderline High: .... 150-199 mg/dL High: ............... 200-499 mg/dL Very High: .......... > 500 mg/dL * Source: National Cholesterol Education Program (NCEP) 43 E11.40 E78.5 Z68.43 M10.40 Z11.9 44 Elevated levels of HbA1c suggest the need for more aggressive treatment of glycemia. The [place] [employer] recommends that a primary goal of therapy should be a HbA1c of <7% and that physicians should re-evaluate the treatment regimen in patients with HbA1c values consistently >8%. 45 INFCE Result Units: s/co ratio Negative: < 0.8 Indeterminate: 0.8 - 0.9 Positive: > 0.9 The CDC recommends that a positive HCV antibody result be followed up with a HCV Nucleic Acid Amplification test ([id number]). Performed at: [facility] [id number] [employer] Ticket Machine Operator: Marcela Mace MD, Phone: [phone] 46 Note: Persistent reduction for 3 months or more in an eGFR <60 mL/min/1.73 m2 defines CKD. Patients with eGFR values >/=60 mL/min/1.73 m2 may also have CKD if evidence of persistent proteinuria is present. The original MDRD equation for estimated GFR is not valid for patients less than 18 years of age. Additional information may be found at www.[email or web address]. 47 Values below the stated reference ranges of AST and ALT can be seen in normal populations. Clinical correlation is suggested. 48 Reference Guidelines*: Desirable: ........... < 200 mg/dL Borderline High: ..... 200-239 mg/dL High: ................ >=240 mg/dL * The National Cholesterol Education Program (NCEP) 49 Reference Guidelines*: Low HDL: ..... < 40 mg/dL Normal: ..... 40-60 mg/dL Desirable: ... > 60 mg/dL *The National Cholesterol Education Program(NCEP) 50 Reference Guidelines*: Optimal:........... <100 mg/dL Near Optimal....... 100-129 mg/dL Borderline High.... 130-159 mg/dL High............... 160-189 mg/dL Very High.......... >=190 mg/dL * Source: National Cholesterol Education Program (NCEP) 51 Reference Guidelines*: Normal: ............. < 150 mg/dL Borderline High: .... 150-199 mg/dL High: ............... 200-499 mg/dL Very High: .......... > 500 mg/dL * Source: National Cholesterol Education Program (NCEP) 52 E11.40 53 Elevated levels of HbA1c suggest the need for more aggressive treatment of glycemia. The [place] [employer] recommends that a primary goal of therapy should be a HbA1c of <7% and that physicians should re-evaluate the treatment regimen in patients with HbA1c values consistently >8%. 54 E11.21 E78.5 M10.9 55 Elevated levels of HbA1c suggest the need for more aggressive treatment of glycemia. The [place] [employer] recommends that a primary goal of therapy should be a HbA1c of <7% and that physicians should re-evaluate the treatment regimen in patients with HbA1c values consistently >8%. 56 Note: Persistent reduction for 3 months or more in an eGFR <60 mL/min/1.73 m2 defines CKD. Patients with eGFR values >/=60 mL/min/1.73 m2 may also have CKD if evidence of persistent proteinuria is present. The original MDRD equation for estimated GFR is not valid for patients less than 18 years of age. Additional information may be found at www.[email or web address]. 57 Values below the stated reference ranges of AST and ALT can be seen in normal populations. Clinical correlation is suggested. 58 Reference Guidelines*: Desirable: ........... < 200 mg/dL Borderline High: ..... 200-239 mg/dL High: ................ >=240 mg/dL * The National Cholesterol Education Program (NCEP) 59 Reference Guidelines*: Low HDL: ..... < 40 mg/dL Normal: ..... 40-60 mg/dL Desirable: ... > 60 mg/dL *The National Cholesterol Education Program(NCEP) 60 Reference Guidelines*: Optimal:........... <100 mg/dL Near Optimal....... 100-129 mg/dL Borderline High.... 130-159 mg/dL High............... 160-189 mg/dL Very High.......... >=190 mg/dL * Source: National Cholesterol Education Program (NCEP) 61 Reference Guidelines*: Normal: ............. < 150 mg/dL Borderline High: .... 150-199 mg/dL High: ............... 200-499 mg/dL Very High: .......... > 500 mg/dL * Source: National Cholesterol Education Program (NCEP) 62 Elevated levels of HbA1c suggest the need for more aggressive treatment of glycemia. The [place] [employer] recommends that a primary goal of therapy should be a HbA1c of <7% and that physicians should re-evaluate the treatment regimen in patients with HbA1c values consistently >8%. 63 Note: Persistent reduction for 3 months or more in an eGFR <60 mL/min/1.73 m2 defines CKD. Patients with eGFR values >/=60 mL/min/1.73 m2 may also have CKD if evidence of persistent proteinuria is present. The original MDRD equation for estimated GFR is not valid for patients less than 18 years of age. Additional information may be found at www.[email or web address]. 64 Values below the stated reference ranges of AST and ALT can be seen in normal populations. Clinical correlation is suggested. 65 Reference Guidelines*: Desirable: ........... < 200 mg/dL Borderline High: ..... 200-239 mg/dL High: ................ >=240 mg/dL * The National Cholesterol Education Program (NCEP) 66 Reference Guidelines*: Low HDL: ..... < 40 mg/dL Normal: ..... 40-60 mg/dL Desirable: ... > 60 mg/dL *The National Cholesterol Education Program(NCEP) 67 Reference Guidelines*: Optimal:........... <100 mg/dL Near Optimal....... 100-129 mg/dL Borderline High.... 130-159 mg/dL High............... 160-189 mg/dL Very High.......... >=190 mg/dL * Source: National Cholesterol Education Program (NCEP) 68 Reference Guidelines*: Normal: ............. < 150 mg/dL Borderline High: .... 150-199 mg/dL High: ............... 200-499 mg/dL Very High: .......... > 500 mg/dL * Source: National Cholesterol Education Program (NCEP) 69 Elevated levels of HbA1c suggest the need for more aggressive treatment of glycemia. The [place] [employer] recommends that a primary goal of therapy should be a HbA1c of <7% and that physicians should re-evaluate the treatment regimen in patients with HbA1c values consistently >8%. 70 Note: Persistent reduction for 3 months or more in an eGFR <60 mL/min/1.73 m2 defines CKD. Patients with eGFR values >/=60 mL/min/1.73 m2 may also have CKD if evidence of persistent proteinuria is present. The original MDRD equation for estimated GFR is not valid for patients less than 18 years of age. Additional information may be found at www.[email or web address]. 71 Values below the stated reference ranges of AST and ALT can be seen in normal populations. Clinical correlation is suggested. 72 Reference Guidelines*: Desirable: ........... < 200 mg/dL Borderline High: ..... 200-239 mg/dL High: ................ >=240 mg/dL * The National Cholesterol Education Program (NCEP) 73 Reference Guidelines*: Low HDL: ..... < 40 mg/dL Normal: ..... 40-60 mg/dL Desirable: ... > 60 mg/dL *The National Cholesterol Education Program(NCEP) 74 Reference Guidelines*: Optimal:........... <100 mg/dL Near Optimal....... 100-129 mg/dL Borderline High.... 130-159 mg/dL High............... 160-189 mg/dL Very High.......... >=190 mg/dL * Source: National Cholesterol Education Program (NCEP) 75 Reference Guidelines*: Normal: ............. < 150 mg/dL Borderline High: .... 150-199 mg/dL High: ............... 200-499 mg/dL Very High: .......... > 500 mg/dL * Source: National Cholesterol Education Program (NCEP) 76 Elevated levels of HbA1c suggest the need for more aggressive treatment of glycemia. The [place] [employer] recommends that a primary goal of therapy should be a HbA1c of <7% and that physicians should re-evaluate the treatment regimen in patients with HbA1c values consistently >8%. 77 Elevated levels of HbA1c suggest the need for more aggressive treatment of glycemia. The [place] [employer] recommends that a primary goal of therapy should be a HbA1c of <7% and that physicians should re-evaluate the treatment regimen in patients with HbA1c values consistently >8%. 78 Elevated levels of HbA1c suggest the need for more aggressive treatment of glycemia. The [place] [employer] recommends that a primary goal of therapy should be a HbA1c of <7% and that physicians should re-evaluate the treatment regimen in patients with HbA1c values consistently >8%. 79 Elevated levels of HbA1c suggest the need for more aggressive treatment of glycemia. The [place] [employer] recommends that a primary goal of therapy should be a HbA1c of <7% and that physicians should re-evaluate the treatment regimen in patients with HbA1c values consistently >8%. 80 QUERY: Reflex add FT3? Y QUERY: Reflex add FT4? Y 81 Vitamin D deficiency has been defined by the [place] of [employer] and an Endocrine Society practice guideline as a level of serum 25-OH vitamin D less than 20 ng/mL (1,2). The Endocrine Society went on to further define vitamin D insufficiency as a level between 21 and 29 ng/mL (2). 1. IOM ([place] [employer]). 2010. Dietary reference intakes for calcium and D. [place]: The National Academies Press. 2. Lexi MOORE, Leydi DURAN, Julio C GTZ, et al. Evaluation, treatment, and prevention of vitamin D deficiency: an Endocrine Society clinical practice guideline. JCEM. 2010; 96(7):1911-30. Performed at: RN - [facility] [address] [id number] [employer]icket Machine Operator: Marcela Mace MD, Phone: [phone] 82 Note: Persistent reduction for 3 months or more in an eGFR <60 mL/min/1.73 m2 defines CKD. Patients with eGFR values >/=60 mL/min/1.73 m2 may also have CKD if evidence of persistent proteinuria is present. The original MDRD equation for estimated GFR is not valid for patients less than 18 years of age. Additional information may be found at www.[email or web address]. 83 Values below the stated reference ranges of AST and ALT can be seen in normal populations. Clinical correlation is suggested. 84 Reference Guidelines*: Desirable: ........... < 200 mg/dL Borderline High: ..... 200-239 mg/dL High: ................ >=240 mg/dL * The National Cholesterol Education Program (NCEP) 85 Reference Guidelines*: Low HDL: ..... < 40 mg/dL Normal: ..... 40-60 mg/dL Desirable: ... > 60 mg/dL *The National Cholesterol Education Program(NCEP) 86 Reference Guidelines*: Optimal:........... <100 mg/dL Near Optimal....... 100-129 mg/dL Borderline High.... 130-159 mg/dL High............... 160-189 mg/dL Very High.......... >=190 mg/dL * Source: National Cholesterol Education Program (NCEP) 87 Reference Guidelines*: Normal: ............. < 150 mg/dL Borderline High: .... 150-199 mg/dL High: ............... 200-499 mg/dL Very High: .......... > 500 mg/dL * Source: National Cholesterol Education Program (NCEP) 88 Elevated levels of HbA1c suggest the need for more aggressive treatment of glycemia. The [place] [employer] recommends that a primary goal of therapy should be a HbA1c of <7% and that physicians should re-evaluate the treatment regimen in patients with HbA1c values consistently >8%. 89 Note: Persistent reduction for 3 months or more in an eGFR <60 mL/min/1.73 m2 defines CKD. Patients with eGFR values >/=60 mL/min/1.73 m2 may also have CKD if evidence of persistent proteinuria is present. The original MDRD equation for estimated GFR is not valid for patients less than 18 years of age. Additional information may be found at www.[email or web address]. 90 Values below the stated reference ranges of AST and ALT can be seen in normal populations. Clinical correlation is suggested. 91 Reference Guidelines*: Desirable: ........... < 200 mg/dL Borderline High: ..... 200-239 mg/dL High: ................ >=240 mg/dL * The National Cholesterol Education Program (NCEP) 92 Reference Guidelines*: Low HDL: ..... < 40 mg/dL Normal: ..... 40-60 mg/dL Desirable: ... > 60 mg/dL *The National Cholesterol Education Program(NCEP) 93 Reference Guidelines*: Optimal:........... <100 mg/dL Near Optimal....... 100-129 mg/dL Borderline High.... 130-159 mg/dL High............... 160-189 mg/dL Very High.......... >=190 mg/dL * Source: National Cholesterol Education Program (NCEP) 94 Reference Guidelines*: Normal: ............. < 150 mg/dL Borderline High: .... 150-199 mg/dL High: ............... 200-499 mg/dL Very High: .......... > 500 mg/dL * Source: National Cholesterol Education Program (NCEP) 95 Elevated levels of HbA1c suggest the need for more aggressive treatment of glycemia. The [place] [employer] recommends that a primary goal of therapy should be a HbA1c of <7% and that physicians should re-evaluate the treatment regimen in patients with HbA1c values consistently >8%. 96 Note: Persistent reduction for 3 months or more in an eGFR <60 mL/min/1.73 m2 defines CKD. Patients with eGFR values >/=60 mL/min/1.73 m2 may also have CKD if evidence of persistent proteinuria is present. The original MDRD equation for estimated GFR is not valid for patients less than 18 years of age. Additional information may be found at www.[email or web address]. 97 Reference Guidelines*: Desirable: ........... < 200 mg/dL Borderline High: ..... 200-239 mg/dL High: ................ >=240 mg/dL * The National Cholesterol Education Program (NCEP) 98 Reference Guidelines*: Low HDL: ..... < 40 mg/dL Normal: ..... 40-60 mg/dL Desirable: ... > 60 mg/dL *The National Cholesterol Education Program(NCEP) 99 Reference Guidelines*: Optimal:........... <100 mg/dL Near Optimal....... 100-129 mg/dL Borderline High.... 130-159 mg/dL High............... 160-189 mg/dL Very High.......... >=190 mg/dL * Source: National Cholesterol Education Program (NCEP) 100 Reference Guidelines*: Normal: ............. < 150 mg/dL Borderline High: .... 150-199 mg/dL High: ............... 200-499 mg/dL Very High: .......... > 500 mg/dL * Source: National Cholesterol Education Program (NCEP) 101 A1c value between 5.7% and 6.4% is considered at increased risk for diabetes. A1c value greater than 6.5 % is considered essentially diagnostic for Type II diabetes. Current guidelines recommend a treatment goal of <7% for diabetic patients. This method will measure glycosylated hemoglobin variants, HbS, HbG, HbH, HbWayne, HbC, HbE, etc. Other hemoglobin- opathies may give incorrect results with this test. 102 Note: Persistent reduction for 3 months or more in an eGFR <60 mL/min/1.73 m2 defines CKD. Patients with eGFR values >/=60 mL/min/1.73 m2 may also have CKD if evidence of persistent proteinuria is present. The original MDRD equation for estimated GFR is not valid for patients less than 18 years of age. Additional information may be found at www.[email or web address]. 103 A1c value between 5.7% and 6.4% is considered at increased risk for diabetes. A1c value greater than 6.5 % is considered essentially diagnostic for Type II diabetes. Current guidelines recommend a treatment goal of <7% for diabetic patients. This method will measure glycosylated hemoglobin variants, HbS, HbG, HbH, HbWayne, HbC, HbE, etc. Other hemoglobin- opathies may give incorrect results with this test. 104 A1c value between 5.7% and 6.4% is considered at increased risk for diabetes. A1c value greater than 6.5 % is considered essentially diagnostic for Type II diabetes. Current guidelines recommend a treatment goal of <7% for diabetic patients. This method will measure glycosylated hemoglobin variants, HbS, HbG, HbH, HbWayne, HbC, HbE, etc. Other hemoglobin- opathies may give incorrect results with this test. 105 REPORT FAXED PER REQUEST- 12/09/13,([email or web address]) 106 Note: Persistent reduction for 3 months or more in an eGFR <60 mL/min/1.73 m2 defines CKD. Patients with eGFR values >/=60 mL/min/1.73 m2 may also have CKD if evidence of persistent proteinuria is present. The original MDRD equation for estimated GFR is not valid for patients less than 18 years of age. Additional information may be found at www.kdoqi.org. 107 A1c value between 5.7% and 6.4% is considered at increased risk for diabetes. A1c value greater than 6.5 % is considered essentially diagnostic for Type II diabetes. Current guidelines recommend a treatment goal of <7% for diabetic patients. This method will measure glycosylated hemoglobin variants, HbS, HbG, HbH, HbWayne, HbC, HbE, etc. Other hemoglobin- opathies may give incorrect results with this test. 108 Note: Persistent reduction for 3 months or more in an eGFR <60 mL/min/1.73 m2 defines CKD. Patients with eGFR values >/=60 mL/min/1.73 m2 may also have CKD if evidence of persistent proteinuria is present. The original MDRD equation for estimated GFR is not valid for patients less than 18 years of age. Additional information may be found at www.[email or web address]. 109 A1c value between 5.7% and 6.4% is considered at increased risk for diabetes. A1c value greater than 6.5 % is considered essentially diagnostic for Type II diabetes. Current guidelines recommend a treatment goal of <7% for diabetic patients. This method will measure glycosylated hemoglobin variants, HbS, HbG, HbH, HbWayne, HbC, HbE, etc. Other hemoglobin- opathies may give incorrect results with this test. 110 Note: Persistent reduction for 3 months or more in an eGFR <60 mL/min/1.73 m2 defines CKD. Patients with eGFR values >/=60 mL/min/1.73 m2 may also have CKD if evidence of persistent proteinuria is present. The original MDRD equation for estimated GFR is not valid for patients less than 18 years of age. Additional information may be found at [email or web address]. 111 Test not performed (LDL CANNOT BE CALCULATED FOR TRIGS >400 mg/dL) 112 A1c value between 5.7% and 6.4% is considered at increased risk for diabetes. A1c value greater than 6.5 % is considered essentially diagnostic for Type II diabetes. Current guidelines recommend a treatment goal of <7% for diabetic patients. This method will measure glycosylated hemoglobin variants, HbS, HbG, HbH, HbWayne, HbC, HbE, etc. Other hemoglobin- opathies may give incorrect results with this test. 113 Note: Persistent reduction for 3 months or more in an eGFR <60 mL/min/1.73 m2 defines CKD. Patients with eGFR values >/=60 mL/min/1.73 m2 may also have CKD if evidence of persistent proteinuria is present. The original MDRD equation for estimated GFR is not valid for patients less than 18 years of age. Additional information may be found at [email or web address]. 114 Test not performed (LDL CANNOT BE CALCULATED FOR TRIGS >400 mg/dL) 115 Note: Persistent reduction for 3 months or more in an eGFR <60 mL/min/1.73 m2 defines CKD. Patients with eGFR values >/=60 mL/min/1.73 m2 may also have CKD if evidence of persistent proteinuria is present. The original MDRD equation for estimated GFR is not valid for patients less than 18 years of age. Additional information may be found at [email or web address]. 116 Note: Persistent reduction for 3 months or more in an eGFR <60 mL/min/1.73 m2 defines CKD. Patients with eGFR values >/=60 mL/min/1.73 m2 may also have CKD if evidence of persistent proteinuria is present. The original MDRD equation for estimated GFR is not valid for patients less than 18 years of age. Additional information may be found at [email or web address]. 117 Note: Persistent reduction for 3 months or more in an eGFR <60 mL/min/1.73 m2 defines CKD. Patients with eGFR values >/=60 mL/min/1.73 m2 may also have CKD if evidence of persistent proteinuria is present. The original MDRD equation for estimated GFR is not valid for patients less than 18 years of age. Additional information may be found at [email or web address]. 118 A1c value between 5.7% and 6.4% is considered at increased risk for diabetes. A1c value greater than 6.5 % is considered essentially diagnostic for Type II diabetes. Current guidelines recommend a treatment goal of <7% for diabetic patients. This method will measure glycosylated hemoglobin variants, HbS, HbG, HbH, HbWayne, HbC, HbE, etc. Other hemoglobin- opathies may give incorrect results with this test. 119 Note: Persistent reduction for 3 months or more in an eGFR <60 mL/min/1.73 m2 defines CKD. Patients with eGFR values >/=60 mL/min/1.73 m2 may also have CKD if evidence of persistent proteinuria is present. The original MDRD equation for estimated GFR is not valid for patients less than 18 years of age. Additional information may be found at [email or web address]. 120 A1c value between 5.7% and 6.4% is considered at increased risk for diabetes. A1c value greater than 6.5 % is considered essentially diagnostic for Type II diabetes. Current guidelines recommend a treatment goal of <7% for diabetic patients. This method will measure glycosylated hemoglobin variants, HbS, HbG, HbH, HbWayne, HbC, HbE, etc. Other hemoglobin- opathies may give incorrect results with this test. 121 Note: Persistent reduction for 3 months or more in an eGFR <60 mL/min/1.73 m2 defines CKD. Patients with eGFR values >/=60 mL/min/1.73 m2 may also have CKD if evidence of persistent proteinuria is present. The original MDRD equation for estimated GFR is not valid for patients less than 18 years of age. Additional information may be found at [email or web address]. 122 Reference Range and Interpretation: TnI (ng/ml) Interpretation Less Than 0.06 ng/mL Not supportive of diagnosis of [place] 0.06 - 0.50 ng/ml Indeterminate: suggest serial studies if clinically indicated. Greater than 0.5 ng/mL Consistent with diagnosis of [place] 123 Because ethnic data is not always readily available, this report includes an eGFR for both -Americans and non- Americans. The National Kidney Disease Education Program (NKDEP) does not endorse the use of the MDRD equation for patients that are not between the ages of 18 and 70, are , have extremes of body size, muscle mass, or nutritional status, or are non- or non-. According to the National Kidney Foundation, irrespective of diagnosis, the stage of the disease is based on the level of kidney function: Stage Description GFR(mL/min/1.73 m(2)) 1 Kidney damage with normal or decreased GFR 90 2 Kidney damage with mild decrease in GFR 60-89 3 Moderate decrease in GFR 30-59 4 Severe decrease in GFR 15-29 5 Kidney failure <15 (or dialysis) 124 A1c value between 5.7% and 6.4% is considered at increased risk for diabetes. A1c value greater than 6.5 % is considered essentially diagnostic for Type II diabetes. Current guidelines recommend a treatment goal of <7% for diabetic patients. This method will measure glycosylated hemoglobin variants, HbS, HbG, HbH, HbWayne, HbC, HbE, etc. Other hemoglobin- opathies may give incorrect results with this test. 125 Note: Persistent reduction for 3 months or more in an eGFR <60 mL/min/1.73 m2 defines CKD. Patients with eGFR values >/=60 mL/min/1.73 m2 may also have CKD if evidence of persistent proteinuria is present. The original MDRD equation for estimated GFR is not valid for patients less than 18 years of age. Additional information may be found at [email or web address]. 126 Note: Persistent reduction for 3 months or more in an eGFR <60 mL/min/1.73 m2 defines CKD. Patients with eGFR values >/=60 mL/min/1.73 m2 may also have CKD if evidence of persistent proteinuria is present. The original MDRD equation for estimated GFR is not valid for patients less than 18 years of age. Additional information may be found at [email or web address]. 127 Note: Persistent reduction for 3 months or more in an eGFR <60 mL/min/1.73 m2 defines CKD. Patients with eGFR values >/=60 mL/min/1.73 m2 may also have CKD if evidence of persistent proteinuria is present. The original MDRD equation for estimated GFR is not valid for patients less than 18 years of age. Additional information may be found at [email or web address]. 128 A1c value between 5.7% and 6.4% is considered at increased risk for diabetes. A1c value greater than 6.5 % is considered essentially diagnostic for Type II diabetes. Current guidelines recommend a treatment goal of <7% for diabetic patients. This method will measure glycosylated hemoglobin variants, HbS, HbG, HbH, HbWayne, HbC, HbE, etc. Other hemoglobin- opathies may give incorrect results with this test. 129 QUERY: Is the Patient Fasting? Y 130 Vitamin D deficiency has been defined by the [place] of [employer] and an Endocrine Society practice guideline as a level of serum 25-OH vitamin D less than 20 ng/mL (1,2). The Endocrine Society went on to further define vitamin D insufficiency as a level between 21 and 29 ng/mL (2). 1. IOM ([place] of [employer]). 2010. Dietary reference intakes for calcium and D. [place]: The National Academies Press. 2. Lexi MF, Leydi NC, Julio C GTZ, et al. Evaluation, treatment, and prevention of vitamin D deficiency: an Endocrine Society clinical practice guideline. JCEM. 2010; 96(7):1911-30. Performed at: RN - [facility] [address] [id number] [employer] Operator: Corey San MD, Phone: [phone] 131 Note: Persistent reduction for 3 months or more in an eGFR <60 mL/min/1.73 m2 defines CKD. Patients with eGFR values >/=60 mL/min/1.73 m2 may also have CKD if evidence of persistent proteinuria is present. The original MDRD equation for estimated GFR is not valid for patients less than 18 years of age. Additional information may be found at [email or web address]. 132 A1c value between 5.7% and 6.4% is considered at increased risk for diabetes. A1c value greater than 6.5 % is considered essentially diagnostic for Type II diabetes. Current guidelines recommend a treatment goal of <7% for diabetic patients. This method will measure glycosylated hemoglobin variants, HbS, HbG, HbH, HbWayne, HbC, HbE, etc. Other hemoglobin- opathies may give incorrect results with this test. 133 Note: Persistent reduction for 3 months or more in an eGFR <60 mL/min/1.73 m2 defines CKD. Patients with eGFR values >/=60 mL/min/1.73 m2 may also have CKD if evidence of persistent proteinuria is present. The original MDRD equation for estimated GFR is not valid for patients less than 18 years of age. Additional information may be found at [email or web address]. Procedures Date Code Description Status 07/08/2018 40193 Xray Knee 3 Views Completed 07/08/2018 84350 Inject/Drain Joint/Bursa Major W/O US Completed 05/31/2018 [id number] Diabetic Retinal Eye Exam Completed 04/14/2018 81141 Excision, Benign Trunk,Arms,Legs 0.6 CM To 1.0 CM Completed 01/04/2016 72958 EKG Tracing & Interpretation Completed 12/15/2015 62360 Bone Density Study, Single Photon Absorptiometry Completed 12/15/2015 67764 Mammography Unilateral Completed 12/01/2015 18088 Pure Tone Hearing Test, Air Completed 11/29/2015 [id number] Mammogram Completed 11/23/2014 28513 Pure Tone Hearing Test, Air Completed 11/12/2013 75518 Pure Tone-Air Condition Only Completed 10/28/2012 65272 Pure Tone-Air Condition Only Completed 10/22/2011 07749 Visual funct screen test, automated Completed 10/22/2011 03798 Pure Tone-Air Condition Only Completed 10/21/2009 23971 Visual funct screen test, automated Completed 10/21/2009 16997 Pure Tone-Air Condition Only Completed 10/22/2007 21604 Colonoscopy Flexible Diagnostic Completed 10/22/2007 [id number] Colonoscopy Completed Encounters Type Date Location Provider Dx Diagnosis Office Visit 10/20/2018 [facility] Emily Dykes, M25.562 Pain in left knee 2:00p [facility] M25.462 Effusion, left knee M17.12 Unilateral primary osteoarthritis, left knee E66.01 Morbid (severe) obesity due to excess calories Z68.43 Body mass index (BMI) 50-59.9, adult Office Visit 10/08/2018 Roby Lemons M17.12 Unilateral primary 8:45a [facility] MD osteoarthritis, left AT [place] knee Office Visit 07/08/2018 Roby Lemons M17.12 Unilateral primary 11:00a [facility] MD osteoarthritis, left AT [place] knee Plan of Treatment Future Appointment(s):12/08/2018 1:45 pm - Emily Dykes M.D[facility] at [facility]11/25/2018 9:30 am - Denis Slaughter PA-C at [facility]11/25/2018 9:30 am - MONIQUE Rhodes at [facility]11/25/2018 9:30 am - Emily Dykes M.D. at [facility]01/01/2019 11:00 am - Epi Covarrubias MD at [facility]11/12/2018 - Emily Dykes M.D.M25.562 Pain in left kneeFollow up:Follow up : 2 weeks after iwhvvcnD53.462 Effusion, left kneeM17.12 Unilateral primary osteoarthritis, left kneeNew Therapy:Physical TherapyReferral:No Doctor Selected
--- OUTSIDE RECORDS SUMMARY | 2018-11-25 06:49 | XMS REPORT | Continuity of Care Document ---
:1940 External Reference #:[id number] Author Name KhoaTegan rose Care Team Providers Name Role Phone Epi Covarrubias MD Primary Care Physician Unavailable Payers Date Identification Numbers Payment Provider Subscriber Effective: 2018 Policy Number: [id number] Medicare Ligia Moody [employer] Name: Medicare [address] PayID: [id number] [place] [address] Effective: 2017 Policy Number: [id number] [facility] Ligia Moody PayID: [id number] [address] [place] [address] Effective: 2006 Policy Number: [id number] [facility] Wilson Moody PayID: [id number] [address] [place] [address] Advance Directives Description No Information Available Problems [...] Active Onset: 10/20/2018 Localized, primary osteoarthritis Emily Dykes M.D. Active Family History Date Family Member(s) [...] Use Denies Drug Use Smoking Status Reviewed: 11/11/18 Patient is a former smoker Exercise Type/Frequency Exercises sporadically Allergies, Adverse Reactions, Alerts Date Description Reaction Status Severity Comments 07/08/2018 Codeine Active Medications Medication Date Status Form Strength Qnty SIG Indications Ordering Provider Freestyle Lite 11/10 Active Strips 100un test blood Donis M its sugar 3 times Marskim, daily and as MD needed Pen [place] 11/03 Active Misc 31G X 5 100un use three Epi mm its times a day Castkendra and [...] E11.9 Pen-Injec L ts each meal Claire hills MD Levothyroxine 10/22 Active Tablets 150mcg 90tab take [...] inhalation Donis /0000 g/Inh daily MD Yohannes Lantus Solostar Active Solution 100Unit/M 90ml inject 38 Donis M /0000 Pen-Injec L units 2 times klever Sheffield a day Omeprazole Active Capsules 20mg 1 by mouth Unknown /0000 DR every day Tylenol Active Tablets 325mg take 2 tabs as Unknown /0000 needed every 6 hours for pain/fever Metformin HCL 11/21 Hx Tablets 500mg 90tab 1 by mouth in E11.40 s am Claire hills MD 12/31 Phentermine HCL 11/21 Hx Tablets 37.5mg 30tab 1 by mouth Z68.43 s every day, 10/01 Allyssaellatimothy - hour before MD reinier 10/02 the meal or hours after the meal Metformin HCL 08/21 Hx Tablets 500mg 90tab Stop this drug E11.40 s due to renal Allyssaellan - failure MD reinier 12/31 Azithromycin 07/26 Hx Tablets 250mg 6tabs 2 now and 1 J06.9 daily x 4 days Claire hills MD 09/06 Nexium 11/30 Hx Capsules 20mg 90cap 1 by mouth K21.9 s every day Claire hills MD 04/01 Lasix 05/30 Hx Tablets 40mg 90tab 1 by mouth s every day Claire hills MD 12/31 Januvia 04/14 Hx Tablets 100mg 30tab 1 by mouth E11.9 s every day Claire hills MD 11/30 Amoxicillin 10/27 Hx Capsules 500mg 30cap 1 by mouth 465.9 s three times a Claire - sam hills MD 11/23 Spironolactone 04/22 Hx Tablets 50mg 90tab 1 by mouth R60.0 s every day Claire hills MD 12/31 Pioglitazone 09/27 Hx Tablets 45mg 1tabs this med was stopped back Claire simons 09/27/13 MD reinier 11/12 Allopurinol 11/26 Hx Tablets 100mg 90tab 1 po qd ( stop s uloric ) Claire hills MD 09/08 Synthroid 08/12 Hx Tablets 150mcg 90tab Take 1 Tablet s By Mouth Every Castellan - Day MD reinier 09/08 Spironolactone 04/15 Hx Tablets 100mg 1tabs please 782.3 discontinue Claire - spirinolactone MD reinier 04/15 Kayexalate 04/13 Hx Powder 60uni 15 gm today 276.7 ts Claire hills MD 05/18 Furosemide 09/08 Hx Tablets 40mg 135ta 1 PO Q Am And 428.0 bs 1/2 Tab [facility] Noon MD reinier 04/22 Azithromycin 07/29 Hx [...] 250.00 Pen-Injec injection Allyssaellan - t subcutaneous MD reinier 04/02 every Victoza 02/20 Hx Solution 18mg/3ML 0.6 unit 250.00 Pen-Injec injection Allyssaellan - t subcutaneous os, 03/06 every for one week and then 1.2 Lyrica 01/20 Hx Capsules 50mg 270ca tid 357.2 ps Claire hills MD 01/20 Gabapentin 01/20 Hx Capsules 100mg 270ca take 1 capsule E08.40 ps by mouth 3 Claire hills MD 07/26 Klor-Con M10 10/22 Hx Tablets [...] 10/06 Torsemide 00 Hx Tablets 100mg 45tab 1/2 daily Epi /0000 s Claire hills MD 10/06 Medications Administered in Office Medication Date Status Form Strength Qnty SIG Indications Ordering Provider Celestone 3 mg Administered Injection Donis Cristo and 3mg 018 MD Yohannes Immunizations CPT Code Status Date Vaccine Lot # [id number] Given 08/10/2018 Fluzone High Dose 01980 Given 08/21/2017 Pneumococcal Conjugate Vaccine 13 Valent For Intramuscular Use 33045 Given 06/28/2017 Fluzone High Dose 65980 Given 08/10/2015 Fluzone High Dose 77367 Given 10/28/2012 Pneumonia Vaccine 03076 Given 10/28/2012 Tdap - Tetanus/Diptheria/Acellular Pertussis 90093 Given 07/04/2010 Fluzone High Dose 40419 Given 07/02/2008 Influenza Virus 3Yrs & Over 22091 Given 01/02/2008 Pneumonia Vaccine 91939 Given 01/02/2008 Tetanus And Diptheria (Td) For Adult Use Preservative Free Vital Signs Date Vital Result Comment 11/11/2018 11:29am Height 63.5 inches 5'3.50" Weight [...] 30.8-34.3 Mean Platelet Volume 10.2 fL 8.9-12.4 [place] # 0.92 K/uL High 0.3-0.9 [place] % 11.7 % 4.3-13.2 Neut# 5.51 K/uL [...] pulmonary function test <pending> Laboratory test 12/10/2016 N2N/CCD Import Glycohemoglobin 7.6 % High 4.2- 6.3 52, 53 finding (A1c) eAG 171 mg/dL Microalbumin,Random 12/10/2016 N2N/CCD Import Microalbumin,Urine < 6.0 Urine mg/L Laboratory test finding 07/19/2016 N2N/CCD Import Glycohemoglobin (A1c) 7.3 % High 4.2 54, -6. 55 3 Is Patient Fasting? Fasting Microalbumin,Random Urine 6.5 mg/L Uric Acid 5.7 mg/dL 2.6-6 eAG 163 mg/dL Comprehensive Metabolic Panel 07/19/2016 N2N/CCD Import Alb/Glob 1.1 ratio Albumin 3.8 [...] 7.4 g/dL 6.4-8.2 LDL Cholesterol Profile 07/19/2016 N2N/youcalc Import Cholesterol 144 mg/dL 58 HDL Cholesterol 29 mg/dL Low 59 Is Patient Fasting? Fasting LDL-Cholesterol 71 mg/dL 60 Triglycerides 221 mg/dL High 61 Laboratory test 04/16/2016 N2N/CCD Import Sedimentation Rate 67 mm/hr High 0-30 finding Uric Acid 6.1 mg/dL High 2.6-6 Laboratory test 04/04/2016 N2N/CCD Import Sedimentation Rate 56 mm/hr High 0-30 finding Uric Acid 10.9 mg/dL High 2.6-6 Laboratory test 03/28/2016 N2N/CCD Import Glycohemoglobin (A1c) 7.2 % High 4.2-6.3 62 finding eAG 160 mg/dL Comprehensive Metabolic Panel 03/28/2016 N2N/youcalc Import Alb/Glob 1.1 ratio Albumin 3.8 g/dL [...] 7.4 g/dL 6.4-8.2 LDL Cholesterol Profile 03/28/2016 N2N/youcalc Import Cholesterol 162 mg/dL 65 HDL Cholesterol 31 mg/dL Low 66 LDL-Cholesterol 99 mg/dL 67 Triglycerides 160 mg/dL High 68 Laboratory test 10/19/2015 N2N/youcalc Import Glycohemoglobin (A1c) 6.9 % High 4.2-6.3 69 finding Microalbumin,Random Urine 6.3 mg/L eAG 151 mg/dL Comprehensive Metabolic Panel 10/19/2015 N2N/youcalc Import Alb/Glob 1.0 ratio Albumin 3.7 g/dL [...] 8.3 K/uL 3.1-10.7 Comprehensive Metabolic Panel 03/04/2015 N2N/CCD Import Alb/Glob 1.1 ratio Albumin 3.8 [...] 7.3 g/dL 6.4-8.2 LDL Cholesterol Profile 03/04/2015 ChirpmeN/youcalc Import Cholesterol 162 mg/dL 84 HDL Cholesterol 30 mg/dL 85 LDL-Cholesterol 90 mg/dL 86 Triglycerides 210 mg/dL 87 Laboratory test 10/20/2014 ChirpmeN/youcalc Import Glycohemoglobin (A1c) 7.0 % High 4.2-6.3 88 finding Uric Acid 4.8 mg/dL 2.6-6 eAG 154 mg/dL CBC 10/20/2014 ChirpmeN/youcalc Import Hematocrit 35.9 % Low 36-46.1 Hemoglobin [...] 8.1 K/uL 3.1-10.7 Comprehensive Metabolic Panel 10/20/2014 ChirpmeN/youcalc Import Alb/Glob 1.1 ratio Albumin 3.9 g/dL [...] 7.6 g/dL 6.4-8.2 LDL Cholesterol Profile 10/20/2014 ChirpmeN/youcalc Import Cholesterol 169 mg/dL 91 HDL Cholesterol 33 mg/dL 92 LDL-Cholesterol 108 mg/dL 93 Triglycerides 140 mg/dL 94 Laboratory test 07/14/2014 ChirpmeN/youcalc Import Glycohemoglobin (A1c) 6.4 % High 4.2-6.3 95 finding Microalbumin,Random Urine < 5.0 mg/L Uric Acid 8.2 mg/dL High 2.6-6 eAG 137 mg/dL Comprehensive Metabolic Panel 07/14/2014 N2N/youcalc Import Alb/Glob 1.0 ratio Albumin 3.9 g/dL [...] 7.7 g/dL 6.4-8.2 LDL Cholesterol Profile 07/14/2014 N2N/youcalc Import Cholesterol 157 mg/dL 97 HDL Cholesterol 36 mg/dL 98 LDL-Cholesterol 80 mg/dL 99 Triglycerides 207 mg/dL 100 Laboratory test 04/16/2014 N2N/youcalc Import Glycohemoglobin (A1c) 7.9 % High 4.8-6 101 finding eAG 180 mg/dL CBC 04/16/2014 N2N/youcalc Import Hematocrit 36.8 % 36-46.1 Hemoglobin 11.5 [...] 6.6 K/uL 3.1-10.7 Comprehensive Metabolic Panel 04/16/2014 N2N/youcalc Import Alb/Glob 1.0 ratio Albumin 3.6 g/dL [...] Protein 7.2 g/dL 6.3-8 Laboratory test 01/13/2014 N2N/youcalc Import Glycohemoglobin (A1c) 8.1 % High 4.8-6 103 finding eAG 186 mg/dL Laboratory test 12/09/2013 N2N/CCD Import Glycohemoglobin (A1c) 8.0 % High 4.8-6 104 finding Thyroid Stim Hormone 1.03 uIU/mL 0.49-4.67 105 eAG 183 mg/dL Comprehensive Metabolic Panel 12/09/2013 N2N/youcalc Import Alb/Glob 1.0 ratio Albumin 3.8 g/dL [...] 7.6 g/dL 6.3-8 LDL Cholesterol Profile 12/09/2013 N2N/youcalc Import Cholesterol 122 mg/dL 120-200 HDL Cholesterol 30 mg/dL 29-83 LDL-Cholesterol 55 mg/dL Low 62-185 Triglycerides 184 mg/dL 16-231 Laboratory test 11/06/2013 N2N/youcalc Import Glycohemoglobin (A1c) 8.0 % High 4.8-6 107 finding Uric Acid 4.6 mg/dL 2.1-7.4 eAG 183 mg/dL Comprehensive Metabolic Panel 11/06/2013 N2N/youcalc Import Alb/Glob 1.1 ratio Albumin 4.0 g/dL [...] 7.6 g/dL 6.3-8 LDL Cholesterol Profile 11/06/2013 N2N/youcalc Import Cholesterol 132 mg/dL 120-200 HDL Cholesterol 28 mg/dL Low 29-83 LDL-Cholesterol 59 mg/dL Low 62-185 Triglycerides 226 mg/dL 16-231 Laboratory test 08/21/2013 N2N/youcalc Import Glycohemoglobin (A1c) 9.2 % High 4.8-6 109 finding Thyroid Stim Hormone 2.61 uIU/mL 0.49-4.67 Uric Acid 5.8 mg/dL 2.1-7.4 eAG 217 mg/dL Comprehensive Metabolic Panel 08/21/2013 ChirpmeN/youcalc Import Alb/Glob 1.1 ratio Albumin 3.7 g/dL [...] 7.0 g/dL 6.3-8 LDL Cholesterol Profile 08/21/2013 N2N/youcalc Import Cholesterol 147 mg/dL 120-200 HDL Cholesterol [...] 30.8-34.3 Mean Platelet Volume 11.5 fL 8.9-12.4 [place] # 0.67 K/uL 0.3-0.9 [place] % 9.6 % 4.3-13.2 Neut# 3.87 K/uL [...] 5.1 mmol/L 3.5-5.1 Laboratory test finding 04/14/2013 N2N/youcalc Import Potassium 5.6 mmol/L High 3.5-5.1 Laboratory [...] Sodium 137 mmol/L 136-145 Laboratory test 04/13/2013 N2N/youcalc Import Glycohemoglobin (A1c) 6.5 % High 4.8-6 118 finding eAG 140 mg/dL Comprehensive Metabolic Panel 04/13/2013 N2N/youcalc Import Alb/Glob 1.0 ratio Albumin 3.8 g/dL [...] 7.5 g/dL 6.3-8 LDL Cholesterol Profile 04/13/2013 N2N/youcalc Import Cholesterol 143 mg/dL 120-200 HDL Cholesterol 31 mg/dL 29-83 LDL-Cholesterol 73 mg/dL 62-185 Triglycerides 197 mg/dL 16-231 Laboratory test 01/21/2013 N2N/CCD Import Glycohemoglobin (A1c) 6.5 % High 4.8-6 120 finding Thyroid Stim Hormone 3.07 uIU/mL 0.49-4.67 eAG 140 mg/dL Comprehensive Metabolic Panel 01/21/2013 N2N/CCD Import Alb/Glob 1.2 ratio Albumin 4.0 g/dL [...] 7.3 g/dL 6.3-8 LDL Cholesterol Profile 01/21/2013 N2N/CCD Import Cholesterol 152 mg/dL 120-200 HDL Cholesterol 34 mg/dL 29-83 LDL-Cholesterol 78 mg/dL 62-185 Triglycerides 198 mg/dL 16-231 Laboratory test 09/05/2012 N2N/CCD Import B Type Natriuretic 32.0 pg/mL 0-100 finding Peptide Troponin I 0 ng/mL 0-0.06 122 Comp Metabolic Panel 09/05/2012 N2N/CCD Import Albumin 4.0 g/dL 3.2-5.2 Albumin/Globulin Ratio [...] g/dL 6.2-8.1 CBC With Manual Diff 09/05/2012 N2N/youcalc Import Abs Basophils 0.1 10^3/uL 0-0.2 Abs [...] Count 6.7 10^3/uL 4.8-10.8 Laboratory test 07/25/2012 N2N/youcalc Import Glycohemoglobin (A1c) 7.9 % High 4.8-6 124 finding eAG 180 mg/dL Comprehensive Metabolic Panel 07/25/2012 N2N/youcalc Import Alb/Glob 1.1 ratio Albumin 4.0 g/dL [...] 30.8-34.3 Mean Platelet Volume 10.8 fL 8.9-12.4 [place] # 0.87 K/uL 0.3-0.9 [place] % 13.3 % High 4.3-13.2 Neut# 3.90 [...] 30.8-34.3 Mean Platelet Volume 11.0 fL 8.9-12.4 [place] # 0.66 K/uL 0.3-0.9 [place] % 9.7 % 4.3-13.2 Neut# 4.01 K/uL [...] 30.8-34.3 Mean Platelet Volume 10.7 fL 8.9-12.4 [place] # 0.59 K/uL 0.3-0.9 [place] % 10.5 % 4.3-13.2 Neut# 3.04 K/uL [...] for more aggressive treatment of glycemia. The [place] Diabetes Association recommends that a primary goal of therapy should be a HbA1c of <7% and that physicians should re-evaluate the treatment regimen in patients with HbA1c values consistently >8%. 3 Thyroglobulin Antibody measured by Yasmin Omari Methodology Performed at: RN - [facility] [address] [id number] Thermostat Maker: Marcela Mace MD, Phone: [phone] 4 Vitamin D deficiency has been defined by the [place] of [employer] and an Endocrine Society practice guideline as a level of serum 25-OH vitamin D less than 20 ng/mL (1,2). The Endocrine Society went on to further define vitamin D insufficiency as a level between 21 and 29 ng/mL (2). 1. IOM ([place] of [employer]). 2010. Dietary reference intakes for calcium and D. [place]: The National Academies Press. 2. Lexi MF, Leydi NC, Julio C GTZ, et al. Evaluation, treatment, and prevention of vitamin D deficiency: an Endocrine Society clinical practice guideline. JCEM. 2010; 96(7):1911-30. Performed at: RN - [facility] [address] [id number] Thermostat Maker: Marcela Mace MD, Phone: [phone] Note: Persistent reduction for 3 months [...] mg/dL * Source: National Cholesterol Education Program ([place]) 11 [id number] 12 SEE RESULT BELOW Name: LIGIA MOODY : [address]: Epi Covarrubias MD Acct: [id number] Unit: [id number] AGE: 77 Location: [facility] Re04/14/18 SEX: F Status: REG REF SPEC: [id number] YOJANA: 04/14/18-14[address] [facility] [address]: Epi Covarrubias MD REQ: [id number] RECD: 04/14/18 STATUS: SOUT _ ORDERED: LEVEL 3 COMMENTS: [id number] FINAL DIAGNOSIS Skin, right shoulder, excisional biopsy: [...] 1516 END OF REPORT DEPARTMENT OF PATHOLOGY, [address] [place] [address] Lance Arevalo M.D. Director [facility] # [id number] 13 E11.40 E03.9 I10 N25.9 14 Elevated levels of HbA1c suggest the need for more aggressive treatment of glycemia. The [place] Diabetes Association recommends that a primary goal [...] for more aggressive treatment of glycemia. The [place] Diabetes Association recommends that a primary goal of therapy should be a HbA1c of <7% and that physicians should re-evaluate the treatment regimen in patients with HbA1c values consistently >8%. 28 Vitamin D deficiency has been defined by the [place] [employer] and an Endocrine Society practice guideline as a level of serum 25-OH vitamin D less than 20 ng/mL (1,2). The Endocrine Society went on to further define vitamin D insufficiency as a level between 21 and 29 ng/mL (2). 1. IOM ([place] of [employer]). 2010. Dietary reference intakes for calcium and D. [place]: The National Academies Press. 2. Lexi MF, Leydi DURAN, Julio C GTZ, et al. Evaluation, treatment, and prevention of vitamin D deficiency: an Endocrine Society clinical practice guideline. JCEM. 2011 Mar; 96(7):1911-30. Performed at: RN - [facility] [address] [id number] Thermostat Maker: Marcela Mace MD, Phone: [phone] Note: Persistent reduction for 3 months [...] for more aggressive treatment of glycemia. The [place] Diabetes Association recommends that a primary goal [...] for more aggressive treatment of glycemia. The [place] Diabetes Association recommends that a primary goal [...] with a HCV Nucleic Acid Amplification test (342127). Performed at: - [facility] [id number] Thermostat Maker: Marcela Mace MD, Phone: [phone] Note: Persistent reduction for 3 months [...] for more aggressive treatment of glycemia. The [place] Diabetes Association recommends that a primary goal of therapy should be a HbA1c of <7% and that physicians should re-evaluate the treatment regimen in patients with HbA1c values consistently >8%. 54 E11.21 E78.5 M10.9 55 Elevated levels of HbA1c suggest the need for more aggressive treatment of glycemia. The [place] Diabetes Association recommends that a primary goal [...] for more aggressive treatment of glycemia. The [place] Diabetes Association recommends that a primary goal [...] for more aggressive treatment of glycemia. The [place] Diabetes Association recommends that a primary goal [...] for more aggressive treatment of glycemia. The [place] Diabetes Association recommends that a primary goal of therapy should be a HbA1c of <7% and that physicians should re-evaluate the treatment regimen in patients with HbA1c values consistently >8%. 77 Elevated levels of HbA1c suggest the need for more aggressive treatment of glycemia. The [place] Diabetes Association recommends that a primary goal of therapy should be a HbA1c of <7% and that physicians should re-evaluate the treatment regimen in patients with HbA1c values consistently >8%. 78 Elevated levels of HbA1c suggest the need for more aggressive treatment of glycemia. The [place] Diabetes Association recommends that a primary goal of therapy should be a HbA1c of <7% and that physicians should re-evaluate the treatment regimen in patients with HbA1c values consistently >8%. 79 Elevated levels of HbA1c suggest the need for more aggressive treatment of glycemia. The [place] Diabetes Association recommends that a primary goal of therapy should be a HbA1c of <7% and that physicians should re-evaluate the treatment regimen in patients with HbA1c values consistently >8%. 80 QUERY: Reflex add FT3? Y QUERY: Reflex add FT4? Y 81 Vitamin D deficiency has been defined by the [place] [employer] and an Endocrine Society practice guideline as a level of serum 25-OH vitamin D less than 20 ng/mL (1,2). The Endocrine Society went on to further define vitamin D insufficiency as a level between 21 and 29 ng/mL (2). 1. IOM ([place] of [employer]). 2010. Dietary reference intakes for calcium and D. [place]: The National Academies Press. 2. Lexi MF, Leydi NC, Adriana-Sundar GTZ, et al. Evaluation, treatment, and prevention of vitamin D deficiency: an Endocrine Society clinical practice guideline. JCEM. 2010; 96(7):1911-30. Performed at: RN - [facility] [address] [id number] Thermostat Maker: Marcela Mace MD, Phone: [phone] Note: Persistent reduction for 3 months [...] for more aggressive treatment of glycemia. The [place] Diabetes Association recommends that a primary goal [...] for more aggressive treatment of glycemia. The [place] Diabetes Association recommends that a primary goal [...] 0.06 ng/mL Not supportive of diagnosis of SD 0.06 - 0.50 ng/ml Indeterminate: suggest serial studies if clinically indicated. Greater than 0.5 ng/mL Consistent with diagnosis of SD 123 Because ethnic data is not always [...] D deficiency has been defined by the [place] [employer] and an Endocrine Society practice guideline as a level of serum 25-OH vitamin D less than 20 ng/mL (1,2). The Endocrine Society went on to further define vitamin D insufficiency as a level between 21 and 29 ng/mL (2). 1. IOM ([place] of [employer]). 2010. Dietary reference intakes for calcium and D. [place]: The National Academies Press. 2. Lexi MF, Leydi NC, Julio C GTZ, et al. Evaluation, treatment, and prevention of vitamin D deficiency: an Endocrine Society clinical practice guideline. JCEM. 2010; 96(7):1911-30. Performed at: RN - [facility] [address] [id number] Thermostat Maker: Corey San MD, Phone: [phone] Note: Persistent reduction for 3 months [...] [email or web address]. Procedures Date Code Description Status 07/08/2018 40898 Xray Knee 3 Views Completed 07/08/2018 45731 Inject/Drain Joint/Bursa Major W/O US Completed 05/31/2018 884738201 Diabetic Retinal Eye Exam Completed 04/14/2018 59625 Excision, Benign Trunk,Arms,Legs 0.6 CM To 1.0 CM Completed 01/04/2016 60734 EKG Tracing & Interpretation Completed 12/15/2015 82196 Bone Density Study, Single Photon Absorptiometry Completed 12/15/2015 90658 Mammography Unilateral Completed 12/01/2015 43765 Pure Tone Hearing Test, Air Completed 11/29/2015 [id number] Mammogram Completed 11/23/2014 90503 Pure Tone Hearing Test, Air Completed 11/12/2013 83069 Pure Tone-Air Condition Only Completed 10/28/2012 80325 Pure Tone-Air Condition Only Completed 10/22/2011 32213 Visual funct screen test, automated Completed 10/22/2011 33096 Pure Tone-Air Condition Only Completed 10/21/2009 03275 Visual funct screen test, automated Completed 10/21/2009 71218 Pure Tone-Air Condition Only Completed 10/22/2007 78166 Colonoscopy Flexible Diagnostic Completed 10/22/2007 [id number] Colonoscopy Completed Encounters Type Date Location Provider Dx Diagnosis Office Visit 10/20/2018 Orthopedic Emily Dykes, M25.562 Pain in left knee 2:00p [facility] M25.462 Effusion, left knee M17.12 Unilateral primary osteoarthritis, left knee E66.01 Morbid (severe) obesity due to excess calories Z68.43 Body mass index (BMI) 50-59.9, adult Office Visit 10/08/2018 Orthopedic Donis Lemons M17.12 Unilateral primary 8:45a [facility] MD Yohannes osteoarthritis, left AT [place] knee Office Visit 07/08/2018 Orthopedic Donis Cristo M17.12 Unilateral primary 11:00a [facility] MD Yohannes osteoarthritis, left AT [place] knee Plan of Treatment Future Appointment(s):11/25/2018 9:30 am - Denis Slaughter PA-C at [facility].11/25/2018 9:30 am - MONIQUE Rhodes at [facility].11/25/2018 9:30 am - Emily Dykes M.D. at [facility].11/12/2018 8:30 am - Emily Dykes M.D. at [facility].01/01/2019 11:00 am - Epi Covarrubias MD at [facility]11/11/2018 - Epi Covarrubias MDM17.9 Osteoarthritis of knee, gigbwnphemgW52.9 Type 2 diabetes mellitus without complicationsNew Labs:Comp Metabolic Panel, Ordered: 11/11/18Hemoglobin A1c (Glyco HGB), Ordered: I10 Essential (primary) hypertensionNew Labs:CBC Auto Diff, Ordered: Lipid Profile (Trig/Chol/HDL), Ordered: 11/11/18M10.00 Idiopathic gout, unspecified siteNew Labs:Uric Acid, Ordered: 11/11/18M54.5 Low back painK21.9 Gastro-esophageal reflux disease without ytcnimtustkD55.3 AdodeielfsP19.0 Conductive hearing loss, pwbrxshelA10.909 Unspecified asthma, jdjewvpuoquzgK90.9 Hypothyroidism, unspecifiedNew Labs:TSH (Thyroid Stim Horm), Ordered: 11/11/18Anti-Thyroid Antibodies Screen, Ordered: 11/11/18G47.30 Sleep apnea, unspecifiedNew Xrays:Chest PA & Lat 2 VWS, Ordered: 11/11/18E78.5 Hyperlipidemia, bzuyhpaummeM81.9 Chronic kidney disease, yfluviybwfjC78.818 Encounter for other preprocedural examinationNew Labs:Inr/Protime, Ordered: 09/17Partial Thrombo Time PTT, Ordered: 11/11/18
[2018-11-25] MEDS ORDERED: ceFAZolin 2 GM PREMIX in ORs 2 GM/50 ML BAG IVPB ONE (07:41)
[2018-11-25] MEDS ORDERED: ceFAZolin 1 GM ADVAN(*) 1 GM ADDV.VIAL IVPB ONE (07:42)
[2018-11-25] MEDS ORDERED: Famotidine IV* 10 MG/ML 2 ML (20 mg) ONE (07:43)
[2018-11-25] MEDS ORDERED: fentaNYL* 50 MCG/ML 2 ML VIAL (100 MCG VIAL) ONE (07:46)
[2018-11-25] MEDS ORDERED: Midazolam* 1 MG/ML 5 ML VIAL (5 MG) ONE (07:46)
[2018-11-25] MEDS ORDERED: KETAMINE HCL* 50 MG/ML 10 ML VIAL ONE (07:46)
[2018-11-25] MEDS ORDERED: Lidocaine 1%* 5 ML VIAL ONE (08:59)
[2018-11-25] MEDS ORDERED: ROPIVACAINE 5 MG/ML 30 ML BTL (0.5%) ONE ×2 (09:00→09:03)
[2018-11-25] MEDS ORDERED: Glycopyrrolate IV* 0.2 MG/ML 1 ML VIAL ONE (10:34)
[2018-11-25] MEDS ORDERED: DiMENhydriNATE IV* 50 MG/ML VIAL ONE ×2 (10:34→12:47)
[2018-11-25] MEDS ORDERED: Ketorolac INJ* 30 MG/ML 1 ML VIAL ONE (10:34)
[2018-11-25] MEDS ORDERED: Dexamethasone IV* 4 MG/ML 1 ML (4 MG) ONE (10:34)
[2018-11-25] MEDS ORDERED: Ondansetron INJ* 2 MG/ML VIAL ONE (10:34)
[2018-11-25] MEDS ORDERED: HYDROmorphone INJ1* 1 MG/ML SYRINGE ONE (11:33)
[2018-11-25] MEDS ORDERED: Midazolam* 1 MG/ML 2 ML VIAL (2 MG) ONE (11:38)
[2018-11-25] MEDS ORDERED: DiMENhydriNATE IV* 50 MG/ML VIAL IV PUSH PRN (11:46)
[2018-11-25] MEDS ORDERED: Naloxone* 0.4 MG/ML 1 ML VIAL IV PRN (11:46)
[2018-11-25] MEDS ORDERED: Acetaminophen IV 1GM/100ML * 1,000 MG/100 ML VIAL IVPB ONE (11:46)
[2018-11-25] MEDS ORDERED: HYDROmorphone INJ1* 1 MG/ML SYRINGE IV PRN (11:46)
[2018-11-25] MEDS ORDERED: Gabapentin CAP(*) 300 MG PO ONE (11:48)
[2018-11-25] MEDS ORDERED: diPHENhydraMINE PO* 25 MG PO PRN (12:42)
[2018-11-25] MEDS ORDERED: Morphine VIAL* 4 MG/ML VIAL (1 ml vial) IV PRN (12:42)
[2018-11-25] MEDS ORDERED: oxyCODONE/Acetamin 5/325 MG* TAB PO PRN (12:42)
[2018-11-25] MEDS ORDERED: diPHENhydraMINE IV* 50 MG/ML 1 ml VIAL (BENADRYL) IV PRN (12:42)
[2018-11-25] MEDS ORDERED: Magnesium Hydroxide LIQ* 30 ML UDC PO PRN (12:42)
[2018-11-25] MEDS ORDERED: Acetaminophen TAB* 325 MG PO PRN (12:42)
[2018-11-25] MEDS ORDERED: Cyclobenzaprine TAB* 10 MG PO PRN (12:42)
[2018-11-25] MEDS ORDERED: Lactated Ringers 1000 ML Bag* 1,000 ML IV SCH (13:00)
--- NOTE | 2018-11-25 14:00 | PN ---
Progress Note - Progress Note Date of Service: 11/25/18 Note: in recovery. resting comfortably. pain well controlled. able to dorsi flex/ plantar flex, 2+ DP pulse and intact sensation
[2018-11-25] MEDS ORDERED: Propofol* 10 MG/ML 20 ML BTL ONE (16:08)
[2018-11-25] MEDS: oxyCODONE/Acetamin 5/325 MG* TAB PO PRN ×2 (16:21→22:57)
[2018-11-25] MEDS ORDERED: Warfarin TAB(*) 6 MG PO ONE (17:46)
[2018-11-25] MEDS: ceFAZolin 1 GM ADVAN(*) 1 GM in NS 0.9% 50 ML* 50 ML IVPB SCH (18:52)
[2018-11-25] MEDS: Magnesium Hydroxide LIQ* 30 ML UDC PO SCH (20:46)
[2018-11-25] MEDS: Docusate CAP* 100 MG PO SCH (20:46)
[2018-11-25] MEDS: oxyCODONE TAB* 5 MG TAB PO PRN (20:48)
--- NOTE | 2018-11-25 22:18 | CONS ---
[facility] MEDICINE CONSULTATION REPORT: DATE OF CONSULT: 11/25/18 PROVIDER: Maki Chaparro NP ATTENDING PHYSICIAN: Dr. Dykes. CONSULTING PHYSICIAN: Dr. Sariah Roldan (dictated by Maki Chaparro NP). REASON FOR CONSULT: Co-management of chronic medical conditions. HISTORY OF PRESENT ILLNESS: Ms. Moody is a 78-year-old female with a past medical history significant for diabetes, sleep apnea, chronic kidney disease, GERD, hypertension, hypothyroid, COPD, who presented to [facility] for an elective left total knee arthroplasty with Dr. Dykes. In brief, Ms. Moody failed outpatient conservative treatment, elected to proceed with left total knee arthroplasty with Dr. Dykes. Please see complete H and P for complete details. Due to the patient's chronic medical conditions, we were asked to see in consult from the patient. PAST MEDICAL HISTORY: Significant for: 1. Diabetes. 2. Sleep apnea. 3. COPD. 4. Hypothyroid. 5. Hypertension. 6. GERD. 7. Kidney disease. PAST SURGICAL HISTORY: 1. Hysterectomy. 2. Laser cataract surgery. 3. Tonsillectomy. HOME MEDICATIONS: 1. Aspirin 81 mg p.o. daily. 2. Vitamin D3. 3. Uloric 80 mg p.o. daily. 4. Tums as needed. 5. Humalog 10 units with meals. 6. Anoro 62.5/25 one inhale daily. 7. Torsemide 50 mg p.o. q.a.m. 8. Micardis 80 mg p.o. q.a.m. 9. Omeprazole 20 mg p.o. q.a.m. 10. Lovastatin 20 mg at bedtime. 11. Levothyroxine 150 mcg p.o. q.a.m. 12. Lantus 38 units subcu b.i.d. 13. Gabapentin 300 mg p.o. t.i.d. 14. Vitamin D 2000 units p.o. q.a.m. 15. Calcium carbonate 300 mg p.o. daily p.r.n. 16. Aspirin 81 mg p.o. q.a.m. 17. Acetaminophen 325 p.o. daily. ALLERGIES: CODEINE. FAMILY HISTORY: Coronary artery disease with mother and father. Both had MIs. Brother with bypass surgery. Brother with diabetes. No reported history of cancer. SOCIAL HISTORY: The patient reports that she smoked for approximately 2 years when she was young, 1 to 2 cigarettes a week. She does report a rare alcohol use. Denies any illicit drug use. Surrogate decision maker in the event she is unable to make her own decisions is her , Wilson. Secondary surrogate decision maker is Jayde Lazcano. She is a full code. REVIEW OF SYSTEMS: There has been no documented fever. No unintended weight loss. Denies any chest pain or edema. Denies any cough, hemoptysis, or shortness of breath. Denies any nausea, vomiting, diarrhea, or abdominal pain. Denies any gross hematuria or dysuria. Denies any focal weakness or sensory loss. Denies any visual complaints, dysphagia. She does report joint pains. Denies any rashes, lesions, open sores, psychosis, or anxiety. PHYSICAL EXAM: At this time, Ms. Moody is a 78-year-old female, she is sitting in her chair in her room. She is in no acute distress. Vital Signs: Blood pressure 139/64, heart rate 71, respirations 14, O2 saturation 98%, temperature was 97.7. HEENT: Head is atraumatic, normocephalic. Eyes: EOMs are intact. Sclerae anicteric and not pale. Oral mucosa appeared to be moist. Neck is supple. Lungs are clear to auscultation bilaterally. No wheezes, rales, or rhonchi. Cardiac: S1, S2. Regular rate and rhythm. No murmurs, rubs, or gallops. Abdomen is obese, soft, nontender. Bowel sounds are present x4. Extremities: She has a dressing intact to her left knee that is dry and intact. Pedal pulses are +2 bilaterally. She does have some lower leg swelling and +2 pitting edema. Skin: She does have dressing intact to her left knee that is dry. There are no open rashes or lesions. Neurologic: She is awake, alert, and oriented x3. Speech is clear. Thought process is intact. No gross focal deficits. DIAGNOSTIC STUDIES/LAB DATA: Preoperatively, on 11/12/18, WBCs were 7.2, RBCs 4.31, hemoglobin 11.7, hematocrit was 36, platelet count was 268. INR 0.91. Sodium 139, potassium 4.6, chloride 100, carbon dioxide was 81. Anion gap was 8. BUN was 40, creatinine 1.60. Calcium 9.7. Troponin . ASTs were 15, ALTs were 16, alkaline phosphatase 78. LDL was 108. Urine was within normal limits. IMPRESSION AND PLAN: Ms. Moody is a 78-year-old female with a past medical history significant for diabetes, sleep apnea, and chronic kidney disease, arthritis, gout, hypertension, who presented to [facility] for an elective left total knee arthroplasty with Dr. Dykes. Due to her chronic medical conditions, we were asked to see and participate in her care to co-manage her chronic medical conditions. Our recommendations are as follows: 1. Status post left total knee arthroplasty. Management per Orthopedics. PT/ OT per Orthopedics. Bowel regimen per Orthopedics. Pain management per Orthopedics. 2. Hypertension. I will continue on her Micardis with holding parameters for systolic blood pressure less than 120. 3. Chronic obstructive pulmonary disease. I will continue on her Anoro inhaler. 4. Diabetes. I will place her on Accu-Cheks a.c. and h.s. She does get lispro 10 units subcu with meals and continue her Lantus at 38 units subcu b.i.d. 5. Gastroesophageal reflux disease. I will continue on her omeprazole 20 mg p.o. daily. 6. Hypothyroidism. I will continue on her Synthroid 150 mcg p.o. q.a.m. 7. FEN. She can have consistent carb diet. 8. Code status. She is a full code. 9. DVT prophylaxis. Per Orthopedics. TIME SPENT: Time spent on this consultation was 45 minutes, more than half that time was spent at the bedside reviewing events leading thus far to this hospitalization, performing my physical exam and reviewing my plan of care. I have discussed this with my attending, Dr. Sariah Roldan. She is in agreement with my plan. MAKI DEVYN, [employer] [id number]/[facility] #: [id number] MTDD
--- NOTE | 2018-11-25 23:41 | OP ---
DATE OF OPERATION: 11/25/18 - ROOM #343 DATE OF : 42 ATTENDING SURGEON: Emily Dykes MD BORING MACHINE OPERATOR VERTICAL: MONIQUE Leone. Kasandra did help throughout the procedure with preparation of the leg, wound retraction, manipulation of the knee, and wound closure. ANESTHESIOLOGIST: Dr. Moe. ANESTHESIA: Spinal. PRE-OP DIAGNOSIS: Severe end-stage degenerative osteoarthritis of the left knee joint. POST-OP DIAGNOSIS: Severe end-stage degenerative osteoarthritis of the left knee joint. OPERATIVE PROCEDURE: Left total knee arthroplasty. TOURNIQUET TIME: 50 minutes. COMPLICATIONS: None. ESTIMATED BLOOD LOSS: 200 cc. SPECIMENS: Bone and cartilage of the left knee joint, sent to Pathology. HARDWARE USED: This was a cemented Walker [employer] Nephew total knee arthroplasty hardware. Two packages of Simplex bone cement. For the femur, a left 5 narrow Legion posterior stabilized femoral component. For the tibia, a left size size 3_ tibial base plate. For the insert, a 9 mm posterior stabilized articular insert, size 3-4 and for the patella, a 32 mm, 3-peg all poly patella. BRIEF HISTORY/INDICATIONS: Ms. Moody is a 78-year-old female with years of increasingly severe left knee pain. Radiograph showed [id number] arthritis. She failed conservative treatment with anti-inflammatories, pain medication, intraarticular injection and physical therapy. Due to continued pain and decreased quality of life, she elected to undergo left total knee arthroplasty. Informed consent was obtained from the patient. She understood the risks of surgery included, but were not limited to bleeding, infection, damage to nearby structures, continued pain, need for further surgery, intraoperative fracture, nerve palsy, hardware failure or loosening, knee stiffness, loss of motion, stroke, heart attack, blood clot, and . She wished to proceed. INTRAOPERATIVE FINDINGS: Intraoperatively, the patient is noted to have severe end- stage arthritis with complete loss of cartilage in all 3 compartments. DESCRIPTION OF PROCEDURE: Ms. Moody was identified in the preanesthesia unit. Her left lower extremity was marked as the correct operative site. Informed consent was signed and placed in the chart. The patient was taken to the operating room and placed under spinal anesthesia. A Barnes catheter placed. Tourniquet was placed on the left side. Left lower extremity was prepped and draped in the usual sterile fashion. Preoperative time-out was made to correctly identify the patient, side, and site. Appropriate perioperative antibiotics were given within 1 hour of incision. Tourniquet was inflated and total tourniquet time for this procedure was 50 minutes. A midline incision was made with a 10 blade and carried down to the extensor mechanism. A new 10 blade was used to make a standard medial parapatellar arthrotomy. The patella was subluxed laterally. Electrocautery was used to subperiosteally elevate the soft tissue off the superomedial tibia to the mid sagittal plane. The knee was flexed up. The anterior horn of the lateral meniscus and the ACL was sharply released. A drill was used to enter the distal femur. Intramedullary distal femoral cutting guide was pinned on the distal femur. Oscillating saw was used to make distal femoral cut. Next, the external rotation guide was pinned on the distal femur. The distal femur was sized to a size 5. Size 5 multi-cutting jig was pinned on the distal femur. Oscillating saw was used to make the appropriate 4 chamfer cuts. The PCL was completely released. Extramedullary tibial cutting guide was pinned on the proximal tibia. Oscillating saw was used to make the proximal tibial cut. The bone was carefully removed. The knee was brought out into full extension. Spacer block had good fit with the knee in full extension. Medial and lateral ligaments were well balanced. Flexion and extension gaps were well balanced. A laminar doll dresser was placed both medially and laterally. Any remaining meniscus was carefully removed using electrocautery. Curved osteotome was used to remove any posterior osteophytes. Tibial tray and drop rods were placed and once again confirmed with satisfactory tibial cut. A left size 5 narrow distal femur was impacted onto the distal femur and had excellent fit and stability. The box for the posterior stabilized implant was prepared using a reamer and box cut osteotome. Size 3 tibial tray trial with a 9 mm insert trial was placed and the knee was taken through a range of motion. The knee had full extension to 125 degrees of flexion with satisfactory patellofemoral tracking. The patella was everted. 9 mm from the patellar, bone and cartilage were carefully removed using an oscillating saw. Patella was sized to a size 32. Three peg holes were drilled through the size 32 guide. A 32 trial patella was placed and the knee was taken through a range of motion. There was satisfactory patellofemoral tracking. All trials were carefully removed. The tibia was subluxed anteriorly and sized to a size 3. Proximal tibia was prepared using a size 3 keel punch. All bony cut surfaces were copiously irrigated with sterile saline and dried. Final implants were cemented into place starting with the tibia, followed by the femur , and lastly the patella. A 9 mm insert trial was placed and the knee was brought into full extension. Tourniquet was turned down at 50 minutes. The knee was copiously irrigated with sterile saline. Electrocautery was used to obtain meticulous hemostasis. Once the cement had fully cured, the insert trial was removed. Any excess cement was removed from around the capsule and hardware. Final insert chosen was a 9 mm posterior stabilized articular insert , size 3-4. This was locked into position on the tibial tray. Stability of the insert was checked and rechecked and noted to be stable. The extensor mechanism was closed using interrupted #1 Vicryl. The rest of the incision was closed in a layered fashion using 0 and 2-0 Vicryl. Skin was closed using running 3-0 nylon suture. Sterile Xeroform, 4x4s, and Webril were used to cover the incision. Emiliano wrap and cold pack were placed over this. Patient's anesthesia was reversed without difficulty. She was taken to the PACU in stable condition. Intended weightbearing will be weightbearing as tolerated. Intended DVT prophylaxis will be Eliquis. [id number]/[facility] #: [id number] MTDEdyta
[2018-11-26] MEDS: oxyCODONE TAB* 5 MG TAB PO PRN ×3 (01:00→12:01)
[2018-11-26] MEDS: ceFAZolin 1 GM ADVAN(*) 1 GM in NS 0.9% 50 ML* 50 ML IVPB SCH ×2 (02:30→11:07)
[2018-11-26] MEDS: oxyCODONE/Acetamin 5/325 MG* TAB PO PRN ×4 (03:08→20:40)
[2018-11-26] MEDS: Ondansetron INJ* 2 MG/ML VIAL IV PRN ×2 (03:18→09:43)
[2018-11-26] MEDS: Levothyroxine TAB* 150 MCG TAB PO SCH (05:19)
[2018-11-26 06:05] LABS: Hematocrit 28 % (35-47); Hemoglobin 9.4 g/dl (12.0-16.0); Mean Platelet Volume 7.8 fL (7.4-10.4); Platelet Count 181 10^3/ul (150-450)
[2018-11-26 06:10] LABS: INR 1.01 (0.77-1.02)
[2018-11-26 06:22] LABS: BUN/Creatinine Ratio 22.9 (8-20); Calcium 8.8 mg/dL (8.6-10.3); EGFR African American 39.8 (>60); EGFR Non-African American 32.9 (>60); Potassium 4.2 mmol/L (3.5-5.0)
[2018-11-26] MEDS: Insulin LISPRO* 1 UNITS UNIT SUBCUT SCH ×3 (08:10→18:25)
[2018-11-26] MEDS ORDERED: Insulin GLARGINE(*) 1 UNITS UNIT SUBCUT SCH (09:00)
[2018-11-26] MEDS ORDERED: Enoxaparin(*) 40 MG/0.4 ML SYR SUBCUT SCH (09:00)
[2018-11-26] MEDS: Magnesium Hydroxide LIQ* 30 ML UDC PO SCH ×2 (09:39→20:44)
[2018-11-26] MEDS: Torsemide TAB* 100 MG PO SCH (09:40)
[2018-11-26] MEDS: CMCS: Febuxostat(NF) 40 MG TAB PO SCH (09:40)
[2018-11-26] MEDS: Docusate CAP* 100 MG PO SCH ×2 (09:41→20:40)
[2018-11-26] MEDS: Cholecalciferol TAB* 1000 UNITS PO SCH (09:41)
[2018-11-26] MEDS: Losartan TAB* 25 MG PO SCH (09:41)
[2018-11-26] MEDS: Pantoprazole TAB * 40 MG TAB PO SCH (09:43)
[2018-11-26] MEDS: NFT: Umeclidin/Vilant 62.5 MDI 62.5/25 mcg 14 INH ELLIPTA DEVICE INH SCH (09:57)
--- NOTE | 2018-11-26 10:03 | PN ---
Progress Note - Progress Note Date of Service: 11/26/18 SOAP: Subjective: []Pt seen at bedside. Knee pain is improved from pre-op though still rating pain as "12/10" with activity. Denies CP, SOB, dizziness, nausea. Objective: [] General: Well appearing, NAD LLE: left knee with cryo cuff in use, thigh is soft,df/pf intact, dp2+, sensation intact to light touch distally. Calves supple and nontender without erythema, edema or palpable cords. anterior left chong with mild erythema patient states is baseline without history of cellulitis Assessment: []LTK 11/25 dr easton Plan: []WBAT PT/OT eliquis 2.5 mg po bid x 30 days may need rehab placement, CM to discuss keflex after post op abx done due to possible cellulitis anterior chong Vital Signs Temp 98.1 F 11/26/18 07:55 Pulse 83 11/26/18 07:55 Resp 16 11/26/18 09:42 BP 137/68 11/26/18 07:55 Pulse Ox 92 11/26/18 07:55 Intake & Output 11/25/18 11/26/18 11/26/18 18:59 06:59 18:59 Intake Total 1999 2803 Output Total 1200 1175 Balance 800 1628 Weight 308 lb 3.2 oz Intake: IV Fluids 1999 1043 ABX - CEFAZOLIN 53 LR 2000 990 Oral 1760 Output: Barnes 1000 1175 Estimated Blood Loss 200 Laboratory Last Values Hgb 9.4 g/dl (12.0-16.0) L 11/26/18 05:53 Hct 28 % (35-47) L 11/26/18 05:53 Plt Count 181 10^3/ul (150-450) 11/26/18 05:53 MPV 7.8 fL (7.4-10.4) 11/26/18 05:53 INR (Anticoag Therapy) 1.01 (0.77-1.02) 11/26/18 05:53 Sodium 136 mmol/L (135-145) 11/26/18 05:53 Potassium 4.2 mmol/L (3.5-5.0) 11/26/18 05:53 Chloride 99 mmol/L (101-111) L 11/26/18 05:53 Carbon Dioxide 30 mmol/L (22-32) 11/26/18 05:53 Anion Gap 7 mmol/L (2-11) 11/26/18 05:53 BUN 35 mg/dL (6-24) H 11/26/18 05:53 Creatinine 1.53 mg/dL (0.51-0.95) H 11/26/18 05:53 Est GFR ( Amer) 39.8 (>60) 11/26/18 05:53 Est GFR (Non-Af Amer) 32.9 (>60) 11/26/18 05:53 BUN/Creatinine Ratio 22.9 (8-20) H 11/26/18 05:53 Glucose 159 mg/dL (70-100) H 11/26/18 05:53 POC Glucose (mg/dL) 188 mg/dL (70-100) H 11/25/18 11:59 Calcium 8.8 mg/dL (8.6-10.3) 11/26/18 05:53
[2018-11-26] MEDS: Cephalexin CAP* 500 MG PO SCH ×4 (11:26→20:40)
--- NOTE | 2018-11-26 12:02 | PN ---
Subjective Date of Service: 11/26/18 Interval History: Pt has no complaints. c/o post op left knee pain. ambulated with PT today, but it was painful Objective Active Medications: Acetaminophen (Tylenol Tab*) 650 mg PO Q8H PRN PRN Reason: PAIN OR TEMPERATURE Cephalexin HCl (Keflex Cap*) 500 mg PO QID [facility] Stop: 12/01/18 10:29 Last Admin: 11/26/18 11:26 Dose: 500 mg Cholecalciferol (Vitamin D Tab*) 2,000 units PO QAM [facility] Last Admin: 11/26/18 09:41 Dose: 2,000 units Cyclobenzaprine HCl (Flexeril Tab*) 5 mg PO TID PRN PRN Reason: SPASMS Last Admin: 11/26/18 05:17 Dose: 5 mg Diphenhydramine HCl (Benadryl Iv*) 25 mg IV Q6H PRN PRN Reason: itching Diphenhydramine HCl (Benadryl Po*) 25 mg PO Q6H PRN PRN Reason: itching Docusate Sodium (Colace Cap*) 100 mg PO BID [facility] Last Admin: 11/26/18 09:41 Dose: 100 mg Enoxaparin Sodium (Lovenox(*)) 40 mg SUBCUT Q24H [facility] Last Admin: 11/26/18 09:39 Dose: 40 mg Febuxostat (Uloric(Nf)) [facility] Last Admin: 11/26/18 09:40 Dose: 80 mg Lactated Ringer's (Lactated Ringers 1000 Ml Bag*) 1,000 mls @ 100 mls/hr IV PER RATE [facility] Last Admin: 11/26/18 01:01 Dose: 100 mls/hr Insulin Glargine (Lantus(*)) 20 units SUBCUT BID [facility] Insulin Human Lispro (Humalog*) 10 units SUBCUT AC [facility] Last Admin: 11/26/18 08:10 Dose: 10 units Lactulose (Lactulose*) 30 ml PO Q6H PRN PRN Reason: constipation Levothyroxine Sodium (Synthroid Tab*) 150 mcg PO 0600 [facility] Last Admin: 11/26/18 05:19 Dose: 150 mcg Losartan Potassium (Cozaar Tab*) [facility]; Protocol Last Admin: 11/26/18 09:41 Dose: 100 mg Magnesium Hydroxide (Milk Of Magnesia Liq*) 30 ml PO BID [facility] Last Admin: 11/26/18 09:39 Dose: 30 ml Magnesium Hydroxide (Milk Of Magnesia Liq*) 30 ml PO Q6H PRN PRN Reason: constipation Morphine Sulfate (Morphine Vial*) 2 mg IV Q2H PRN PRN Reason: PAIN Ondansetron HCl (Zofran Inj*) 4 mg IV Q6H PRN PRN Reason: nausea Last Admin: 11/26/18 09:43 Dose: 4 mg Oxycodone HCl (Roxycodone Tab*) 10 mg PO Q4H PRN PRN Reason: PAIN - SEVERE Last Admin: 11/26/18 05:18 Dose: 10 mg Oxycodone/Acetaminophen (Percocet 5/325 Tab*) 1 tab PO Q4H PRN PRN Reason: PAIN Oxycodone/Acetaminophen (Percocet 5/325 Tab*) 2 tab PO Q4H PRN PRN Reason: PAIN Last Admin: 11/26/18 09:42 Dose: 2 tab Pantoprazole Sodium (Protonix Tab*) 40 mg PO QAM [facility] Last Admin: 11/26/18 09:43 Dose: 40 mg Torsemide (Demadex*) 50 mg PO QAM [facility] Last Admin: 11/26/18 09:40 Dose: 50 mg Umeclidinium/Vilanterol (Anoro 62.5/25 Ellipta Device (Nf)) 1 inh INH DAILY [facility] Last Admin: 11/26/18 09:57 Dose: Not Given Vital Signs - 8 hr 11/26/18 11/26/18 11/26/18 05:15 05:17 05:18 Temperature Pulse Rate Respiratory 18 18 Rate Blood Pressure (mmHg) O2 Sat by Pulse 99 Oximetry 11/26/18 11/26/18 11/26/18 05:21 07:17 07:55 Temperature 98.1 F Pulse Rate 83 Respiratory 18 18 Rate Blood Pressure 137/68 (mmHg) O2 Sat by Pulse 92 Oximetry 11/26/18 11/26/18 08:00 09:42 Temperature Pulse Rate Respiratory 16 16 Rate Blood Pressure (mmHg) O2 Sat by Pulse 92 Oximetry Oxygen Devices in Use Now: CPAP Appearance: 78 yo obese F in nAD, AAOx3 Eyes: No Scleral Icterus, PERRLA Ears/Nose/Mouth/Throat: NL Teeth, Lips, Gums, Mucous Membranes Moist Neck: NL Appearance and Movements; NL JVP, Trachea Midline Respiratory: Symmetrical Chest Expansion and Respiratory Effort, Clear to Auscultation Cardiovascular: NL Sounds; No Murmurs; No JVD, RRR Abdominal: NL Sounds; No Tenderness; No Distention Lymphatic: No Cervical Adenopathy Extremities: No Clubbing, Cyanosis, - - trace b/l ankle edema L>R, post op left knee in cryo unit and post op dressings Skin: - - small area of erythema in anterior chong left leg Neurological: Alert and Oriented x 3, NL Muscle Strength and Tone Result Diagrams: 11/26/18 05:53 11/26/18 05:53 Assess/Plan/Problems-Billing Assessment: 78 yo F with h/o CKD stage 3 due to DM, hypothyroidism, obesity, CURT (on CPAP), HTN, s/p elective left knee replacement on 11/25/18 - Patient Problems (1) Knee joint replacement status Comment: s/p left knee arthoplasty on 11/25/18 on Keflex as per ortho post op (2) HTN (hypertension) Comment: controlled with torsemide and losartan (3) DM2 (diabetes mellitus, type 2) Comment: On Lantus BID at home(will lower the dose when in hospital) Cont Lispro AC TID (4) CKD (chronic kidney disease) stage 3, GFR 30-59 ml/min Comment: creat at baseline (5) Hypothyroidism Comment: cont home L-thyroxine (6) Postoperative anemia due to acute blood loss Comment: Hb at 9.4, cont to monitor (7) DVT prophylaxis Comment: Lovenox and coumadin as per ortho Status and Disposition: Medicine consult, will follow
[2018-11-26] MEDS ORDERED: Furosemide IV* 10 MG/ML VIAL (40 MG) IV ONE (16:15)
[2018-11-26] MEDS ORDERED: Furosemide IV* 10 MG/ML VIAL (40 MG) ONE (16:34)
[2018-11-26] MEDS: Insulin GLARGINE(*) 1 UNITS UNIT SUBCUT SCH (20:41)
[2018-11-27] MEDS: oxyCODONE/Acetamin 5/325 MG* TAB PO PRN ×4 (01:07→23:36)
[2018-11-27] MEDS: Levothyroxine TAB* 150 MCG TAB PO SCH (05:59)
[2018-11-27 06:00] LABS: Hematocrit 28 % (35-47); Hemoglobin 9.2 g/dl (12.0-16.0); Mean Corpuscular HGB Conc 33 g/dl (31-36); Mean Corpuscular Hemoglobin 28 pg (27-31); Mean Corpuscular Volume 83 fL (80-97); Mean Platelet Volume 8.1 fL (7.4-10.4); Platelet Count 173 10^3/ul (150-450); Red Blood Count 3.33 10^6/ul (4.00-5.40); Red Cell Distribution Width 15 % (10.5-15); White Blood Count 6.8 10^3/ul (3.5-10.8)
[2018-11-27 06:04] LABS: INR 1.06 (0.77-1.02)
[2018-11-27 06:17] LABS: Calcium 8.8 mg/dL (8.6-10.3); EGFR African American 34.6 (>60); EGFR Non-African American 28.6 (>60); Potassium 3.9 mmol/L (3.5-5.0)
--- NOTE | 2018-11-27 08:44 | PN ---
Subjective Date of Service: 11/27/18 Interval History: Pt feels well. Pain in better controlled. Slept well Had an episodes of desaturation last night and got IV Lasix, now 02 sat 88% on RA, denies SOB. Educated about incentive spirometry Objective Active Medications: Acetaminophen (Tylenol Tab*) 650 mg PO Q8H PRN PRN Reason: PAIN OR TEMPERATURE Apixaban (Eliquis*) 2.5 mg PO BID [facility] Cephalexin HCl (Keflex Cap*) 500 mg PO QID [facility] Stop: 12/01/18 10:29 Last Admin: 11/26/18 20:40 Dose: 500 mg Cholecalciferol (Vitamin D Tab*) 2,000 units PO QAM [facility] Last Admin: 11/26/18 09:41 Dose: 2,000 units Cyclobenzaprine HCl (Flexeril Tab*) 5 mg PO TID PRN PRN Reason: SPASMS Last Admin: 11/26/18 05:17 Dose: 5 mg Diphenhydramine HCl (Benadryl Iv*) 25 mg IV Q6H PRN PRN Reason: itching Diphenhydramine HCl (Benadryl Po*) 25 mg PO Q6H PRN PRN Reason: itching Docusate Sodium (Colace Cap*) 100 mg PO BID [facility] Last Admin: 11/26/18 20:40 Dose: 100 mg Febuxostat (Uloric(Nf)) [facility] Last Admin: 11/26/18 09:40 Dose: 80 mg Insulin Glargine (Lantus(*)) 20 units SUBCUT BID [facility] Last Admin: 11/26/18 20:41 Dose: 20 units Insulin Human Lispro (Humalog*) 10 units SUBCUT AC [facility] Last Admin: 11/26/18 18:25 Dose: 6 units Lactulose (Lactulose*) 30 ml PO Q6H PRN PRN Reason: constipation Levothyroxine Sodium (Synthroid Tab*) 150 mcg PO 0600 [facility] Last Admin: 11/27/18 05:59 Dose: 150 mcg Losartan Potassium (Cozaar Tab*) 100 mg PO QAM [facility]; Protocol Last Admin: 11/26/18 09:41 Dose: 100 mg Magnesium Hydroxide (Milk Of Magnesia Liq*) 30 ml PO BID [facility] Last Admin: 11/26/18 20:44 Dose: 30 ml Magnesium Hydroxide (Milk Of Magnesia Liq*) 30 ml PO Q6H PRN PRN Reason: constipation Morphine Sulfate (Morphine Vial*) 2 mg IV Q2H PRN PRN Reason: PAIN Ondansetron HCl (Zofran Inj*) 4 mg IV Q6H PRN PRN Reason: nausea Last Admin: 11/26/18 09:43 Dose: 4 mg Oxycodone HCl (Roxycodone Tab*) 10 mg PO Q4H PRN PRN Reason: PAIN - SEVERE Last Admin: 11/26/18 12:01 Dose: 10 mg Oxycodone/Acetaminophen (Percocet 5/325 Tab*) 1 tab PO Q4H PRN PRN Reason: PAIN Oxycodone/Acetaminophen (Percocet 5/325 Tab*) 2 tab PO Q4H PRN PRN Reason: PAIN Last Admin: 11/27/18 05:59 Dose: 2 tab Pantoprazole Sodium (Protonix Tab*) 40 mg PO QAM [facility] Last Admin: 11/26/18 09:43 Dose: 40 mg Torsemide (Demadex*) 50 mg PO QAM [facility] Last Admin: 11/26/18 09:40 Dose: 50 mg Umeclidinium/Vilanterol (Anoro 62.5/25 Ellipta Device (Nf)) 1 inh INH DAILY [facility] Last Admin: 11/26/18 09:57 Dose: Not Given Vital Signs - 8 hr 11/27/18 11/27/18 11/27/18 01:07 03:07 04:28 Temperature 97.7 F Pulse Rate 94 Respiratory 18 20 17 Rate Blood Pressure 140/58 (mmHg) O2 Sat by Pulse 97 Oximetry 11/27/18 11/27/18 11/27/18 05:59 06:06 07:41 Temperature 98.2 F Pulse Rate 91 Respiratory 22 16 Rate Blood Pressure 122/51 (mmHg) O2 Sat by Pulse 96 87 Oximetry 11/27/18 08:18 Temperature Pulse Rate Respiratory 18 Rate Blood Pressure (mmHg) O2 Sat by Pulse Oximetry Oxygen Devices in Use Now: OxyMask Appearance: 78 yo F in nAD, AAOx3 Eyes: No Scleral Icterus, PERRLA Ears/Nose/Mouth/Throat: NL Teeth, Lips, Gums, Mucous Membranes Moist Neck: NL Appearance and Movements; NL JVP, Trachea Midline Respiratory: Symmetrical Chest Expansion and Respiratory Effort, Clear to Auscultation Cardiovascular: NL Sounds; No Murmurs; No JVD, RRR Abdominal: NL Sounds; No Tenderness; No Distention Lymphatic: No Cervical Adenopathy Extremities: No Clubbing, Cyanosis, - - trace b/l ankle edema, left knee in post op drrssings Skin: No Nodules or Sclerosis, - - chronic appearing erythema left anterior chong unchanged Neurological: Alert and Oriented x 3, NL Muscle Strength and Tone Result Diagrams: 11/27/18 05:36 11/27/18 05:36 Assess/Plan/Problems-Billing Assessment: 78 yo F with h/o CKD stage 3 due to DM, hypothyroidism, obesity, CURT (on CPAP), HTN, s/p elective left knee replacement on 11/25/18 - Patient Problems (1) Knee joint replacement status Comment: s/p left knee arthoplasty on 11/25/18 on Keflex as per ortho post op (2) HTN (hypertension) Comment: controlled with torsemide and losartan (3) DM2 (diabetes mellitus, type 2) Comment: On Lantus BID at home(with lower dose when in hospital) Cont Lispro AC TID (4) CKD (chronic kidney disease) stage 3, GFR 30-59 ml/min Comment: creat at baseline (baseline creat 1.9, GFR 27) (5) Hypothyroidism Comment: cont home L-thyroxine (6) Postoperative anemia due to acute blood loss Comment: Hb at 9.2, cont to monitor (7) DVT prophylaxis Comment: placed on apixaban per ortho Status and Disposition: Medicine consult, will follow
[2018-11-27] MEDS: Insulin GLARGINE(*) 1 UNITS UNIT SUBCUT SCH ×2 (09:25→21:20)
[2018-11-27] MEDS: Insulin LISPRO* 1 UNITS UNIT SUBCUT SCH ×3 (09:42→16:53)
[2018-11-27] MEDS: NFT: Umeclidin/Vilant 62.5 MDI 62.5/25 mcg 14 INH ELLIPTA DEVICE INH SCH (09:53)
[2018-11-27] MEDS: Docusate CAP* 100 MG PO SCH ×2 (09:53→21:22)
[2018-11-27] MEDS: Pantoprazole TAB * 40 MG TAB PO SCH (09:53)
[2018-11-27] MEDS: Apixaban* 2.5 MG TAB PO SCH ×2 (09:54→21:21)
[2018-11-27] MEDS: Magnesium Hydroxide LIQ* 30 ML UDC PO SCH ×3 (09:54→21:22)
[2018-11-27] MEDS: Cholecalciferol TAB* 1000 UNITS PO SCH (09:54)
[2018-11-27] MEDS: Cephalexin CAP* 500 MG PO SCH ×4 (09:54→21:21)
[2018-11-27] MEDS: CMCS: Febuxostat(NF) 40 MG TAB PO SCH (09:54)
[2018-11-27] MEDS: Losartan TAB* 25 MG PO SCH (09:55)
[2018-11-27] MEDS: Torsemide TAB* 100 MG PO SCH (09:55)
[2018-11-27] MEDS: Scopolamine 1.5 mg* PATCH TRANSDERM ONE ×2 (11:37→14:05)
--- NOTE | 2018-11-27 12:40 | PN ---
Progress Note - Progress Note Date of Service: 11/27/18 SOAP: Subjective: []Pt seen at bedside. Left knee pain is well controlled. She does not feel SOB and does not have CP. Has a history of COPD and CURT, does not require O2 at home. Denies nausea or dizziness as well. Objective: [] General: Well appearing, NAD LLE: left knee with cryo cuff in use, thigh is soft,df/pf intact, dp2+, sensation intact to light touch distally. Calves supple and nontender without erythema, edema or palpable cords. Anterior left chong with mild erythema patient states is baseline, no change from yesterday. Assessment: []LTK 11/25 Dr Dykes Plan: []WBAT PT/OT eliquis 2.5 mg po bid x 30 days Rehab placement pending keflex x 5 days for erythema of anterior chong, PVD wth possible cellulitis Vital Signs Temp 98.7 F 11/27/18 11:15 Pulse 89 11/27/18 11:15 Resp 18 11/27/18 12:15 BP 135/59 11/27/18 11:15 Pulse Ox 97 11/27/18 11:15 Intake & Output 11/26/18 11/27/18 11/27/18 18:59 06:59 18:59 Intake Total 1707 920 Output Total 1450 1300 Balance 257 -380 Intake: IVPB 1107 ABX - CEFAZOLIN 50 LR 1057 Oral 600 920 Output: Urine 1450 1300 Barnes 0 Laboratory Last Values WBC 6.8 10^3/ul (3.5-10.8) 11/27/18 05:36 RBC 3.33 10^6/ul (4.00-5.40) L 11/27/18 05:36 Hgb 9.2 g/dl (12.0-16.0) L 11/27/18 05:36 Hct 28 % (35-47) L 11/27/18 05:36 MCV 83 fL (80-97) 11/27/18 05:36 MCH 28 pg (27-31) 11/27/18 05:36 MCHC 33 g/dl (31-36) 11/27/18 05:36 RDW 15 % (10.5-15) 11/27/18 05:36 Plt Count 173 10^3/ul (150-450) 11/27/18 05:36 MPV 8.1 fL (7.4-10.4) 11/27/18 05:36 INR (Anticoag Therapy) 1.06 (0.77-1.02) H 11/27/18 05:36 Sodium 136 mmol/L (135-145) 11/27/18 05:36 Potassium 3.9 mmol/L (3.5-5.0) 11/27/18 05:36 Chloride 98 mmol/L (101-111) L 11/27/18 05:36 Carbon Dioxide 32 mmol/L (22-32) 11/27/18 05:36 Anion Gap 6 mmol/L (2-11) 11/27/18 05:36 BUN 38 mg/dL (6-24) H 11/27/18 05:36 Creatinine 1.73 mg/dL (0.51-0.95) H 11/27/18 05:36 Est GFR ( Amer) 34.6 (>60) 11/27/18 05:36 Est GFR (Non-Af Amer) 28.6 (>60) 11/27/18 05:36 BUN/Creatinine Ratio 22.0 (8-20) H 11/27/18 05:36 Glucose 126 mg/dL (70-100) H 11/27/18 05:36 POC Glucose (mg/dL) 141 mg/dL (70-100) H 11/27/18 11:59 Calcium 8.8 mg/dL (8.6-10.3) 11/27/18 05:36
[2018-11-28] MEDS: Levothyroxine TAB* 150 MCG TAB PO SCH (06:17)
[2018-11-28 07:20] LABS: Hematocrit 27 % (35-47); Hemoglobin 9.2 g/dl (12.0-16.0); Mean Platelet Volume 8.2 fL (7.4-10.4); Platelet Count 176 10^3/ul (150-450)
[2018-11-28 07:32] LABS: BUN/Creatinine Ratio 22.3 (8-20); Calcium 8.9 mg/dL (8.6-10.3); EGFR African American 36.2 (>60); Potassium 4.3 mmol/L (3.5-5.0)
[2018-11-28] MEDS: Insulin LISPRO* 1 UNITS UNIT SUBCUT SCH ×2 (07:34→13:22)
[2018-11-28] MEDS: NFT: Umeclidin/Vilant 62.5 MDI 62.5/25 mcg 14 INH ELLIPTA DEVICE INH SCH (08:54)
[2018-11-28] MEDS ORDERED: Insulin GLARGINE(*) 1 UNITS UNIT SUBCUT SCH (09:00)
[2018-11-28] MEDS: Cholecalciferol TAB* 1000 UNITS PO SCH (09:32)
[2018-11-28] MEDS: Cephalexin CAP* 500 MG PO SCH ×2 (09:32→13:30)
[2018-11-28] MEDS: Pantoprazole TAB * 40 MG TAB PO SCH (09:32)
[2018-11-28] MEDS: Torsemide TAB* 100 MG PO SCH (09:33)
[2018-11-28] MEDS: Docusate CAP* 100 MG PO SCH (09:33)
[2018-11-28] MEDS: CMCS: Febuxostat(NF) 40 MG TAB PO SCH (09:33)
[2018-11-28] MEDS: Magnesium Hydroxide LIQ* 30 ML UDC PO SCH (09:36)
--- NOTE | 2018-11-28 10:01 | PN ---
Subjective Date of Service: 11/28/18 Interval History: Pt feels well. Ready to go to [facility] today Objective Active Medications: Acetaminophen (Tylenol Tab*) 650 mg PO Q8H PRN PRN Reason: PAIN OR TEMPERATURE Apixaban (Eliquis*) 2.5 mg PO BID [facility] Last Admin: 11/27/18 21:21 Dose: 2.5 mg Cephalexin HCl (Keflex Cap*) 500 mg PO QID [facility] Stop: 12/01/18 10:29 Last Admin: 11/28/18 09:32 Dose: 500 mg Cholecalciferol (Vitamin D Tab*) 2,000 units PO QAM [facility] Last Admin: 11/28/18 09:32 Dose: 2,000 units Cyclobenzaprine HCl (Flexeril Tab*) 5 mg PO TID PRN PRN Reason: SPASMS Last Admin: 11/26/18 05:17 Dose: 5 mg Diphenhydramine HCl (Benadryl Iv*) 25 mg IV Q6H PRN PRN Reason: itching Diphenhydramine HCl (Benadryl Po*) 25 mg PO Q6H PRN PRN Reason: itching Docusate Sodium (Colace Cap*) 100 mg PO BID [facility] Last Admin: 11/28/18 09:33 Dose: 100 mg Febuxostat (Uloric(Nf)) [facility] Last Admin: 11/28/18 09:33 Dose: 80 mg Insulin Glargine (Lantus(*)) 10 units SUBCUT BID [facility] Last Admin: 11/28/18 09:34 Dose: 10 unit Insulin Human Lispro (Humalog*) 10 units SUBCUT AC [facility] Last Admin: 11/28/18 07:34 Dose: Not Given Lactulose (Lactulose*) 30 ml PO Q6H PRN PRN Reason: constipation Last Admin: 11/28/18 09:34 Dose: 30 ml Levothyroxine Sodium (Synthroid Tab*) 150 mcg PO 0600 [facility] Last Admin: 11/28/18 06:17 Dose: 150 mcg Losartan Potassium (Cozaar Tab*) 100 mg PO QAM [facility]; Protocol Last Admin: 11/27/18 09:55 Dose: 100 mg Magnesium Hydroxide (Milk Of Magnesia Liq*) 30 ml PO BID [facility] Last Admin: 11/28/18 09:36 Dose: Not Given Magnesium Hydroxide (Milk Of Magnesia Liq*) 30 ml PO Q6H PRN PRN Reason: constipation Morphine Sulfate (Morphine Vial*) 2 mg IV Q2H PRN PRN Reason: PAIN Ondansetron HCl (Zofran Inj*) 4 mg IV Q6H PRN PRN Reason: nausea Last Admin: 11/26/18 09:43 Dose: 4 mg Oxycodone HCl (Roxycodone Tab*) 10 mg PO Q4H PRN PRN Reason: PAIN - SEVERE Last Admin: 11/26/18 12:01 Dose: 10 mg Oxycodone/Acetaminophen (Percocet 5/325 Tab*) 1 tab PO Q4H PRN PRN Reason: PAIN Last Admin: 11/28/18 09:35 Dose: 1 tab Oxycodone/Acetaminophen (Percocet 5/325 Tab*) 2 tab PO Q4H PRN PRN Reason: PAIN Last Admin: 11/27/18 23:36 Dose: 2 tab Pantoprazole Sodium (Protonix Tab*) 40 mg PO QAM [facility] Last Admin: 11/28/18 09:32 Dose: 40 mg Pharmacy Profile Note (Scopolamine Patch Remove*) 1 note PATCH OFF ONCE ONE Stop: 11/30/18 11:01 Torsemide (Demadex*) 50 mg PO [facility] Last Admin: 11/28/18 09:33 Dose: 50 mg Umeclidinium/Vilanterol (Anoro 62.5/25 Ellipta Device (Nf)) 1 inh INH DAILY [facility] Last Admin: 11/28/18 08:54 Dose: Not Given Vital Signs - 8 hr 11/28/18 11/28/18 11/28/18 03:28 07:36 09:35 Temperature 99.0 F 98.6 F Pulse Rate 80 81 Respiratory 17 18 18 Rate Blood Pressure 150/65 134/53 (mmHg) O2 Sat by Pulse 96 98 Oximetry Oxygen Devices in Use Now: OxyMask Appearance: 78 yo F in nAD, aAOx3 Eyes: No Scleral Icterus, PERRLA Ears/Nose/Mouth/Throat: NL Teeth, Lips, Gums, Mucous Membranes Moist Neck: NL Appearance and Movements; NL JVP, Trachea Midline Respiratory: Symmetrical Chest Expansion and Respiratory Effort, Clear to Auscultation Cardiovascular: NL Sounds; No Murmurs; No JVD, RRR Abdominal: NL Sounds; No Tenderness; No Distention Lymphatic: No Cervical Adenopathy Extremities: No Clubbing, Cyanosis, - - L knee in cryo unit, left anterior leg erythema, chronic appearing, unchagned Skin: No Nodules or Sclerosis Neurological: Alert and Oriented x 3, NL Muscle Strength and Tone Result Diagrams: 11/28/18 06:57 11/28/18 06:57 Assess/Plan/Problems-Billing Assessment: 78 yo F with h/o CKD stage 3 due to DM, hypothyroidism, obesity, CURT (on CPAP), HTN, s/p elective left knee replacement on 11/25/18 - Patient Problems (1) Knee joint replacement status Comment: s/p left knee arthoplasty on 11/25/18 on Keflex as per ortho post op (2) HTN (hypertension) Comment: controlled with torsemide and losartan (3) DM2 (diabetes mellitus, type 2) Comment: On Lantus BID at home, dose lowered to 10 U BID due to hypoglycemia mid day yesterday Cont Lispro AC TID (4) CKD (chronic kidney disease) stage 3, GFR 30-59 ml/min Comment: creat at baseline (baseline creat 1.9, GFR 27) (5) Hypothyroidism Comment: cont home L-thyroxine (6) Postoperative anemia due to acute blood loss Comment: Hb at 9.2, cont to monitor (7) DVT prophylaxis Comment: placed on apixaban per ortho Status and Disposition: Medicine consult, plan to d/c to [facility] today
[2018-11-28] MEDS: Losartan TAB* 25 MG PO SCH (10:25)
[2018-11-28] MEDS: Apixaban* 2.5 MG TAB PO SCH (10:31)
--- NOTE | 2018-11-28 10:41 | PN ---
Progress Note - Progress Note Date of Service: 11/28/18 SOAP: Subjective: []Patient seen sitting at edge of bed. Denies SOB, CP, palpitations. She is ready to go to rehab in [place] today. Objective: [] Vital Signs Temp 98.6 F 11/28/18 07:36 Pulse 81 11/28/18 07:36 Resp 18 11/28/18 09:35 BP 134/53 11/28/18 07:36 Pulse Ox 98 11/28/18 07:36 Intake & Output 11/27/18 11/28/18 11/28/18 18:59 06:59 18:59 Intake Total 0 720 120 Output Total 0 1300 Balance 0 -580 120 Intake: Oral 0 720 120 Output: Urine 0 1300 Other: Estimated Void Medium # Voids 1 Laboratory Results - last 24 hr 11/27/18 11/27/18 11/27/18 11:59 16:42 20:01 Hgb Hct Plt Count MPV Sodium Potassium Chloride Carbon Dioxide Anion Gap BUN Creatinine Est GFR ( Amer) Est GFR (Non-Af Amer) BUN/Creatinine Ratio Glucose POC Glucose (mg/dL) 141 H 50 L 151 H Calcium 11/28/18 11/28/18 06:57 06:57 Hgb 9.2 L Hct 27 L Plt Count 176 MPV 8.2 Sodium 138 Potassium 4.3 Chloride 97 L Carbon Dioxide 34 H Anion Gap 7 BUN 37 H Creatinine 1.66 H Est GFR ( Amer) 36.2 Est GFR (Non-Af Amer) 30.0 BUN/Creatinine Ratio 22.3 H Glucose 116 H POC Glucose (mg/dL) Calcium 8.9 Left knee incision benign erythema anterior tibia area minor, improving-on Keflex calf NT +Df left ankle Assessment: []s/p LTK POD #3 Plan: [][facility] [place] today F/u 10-[address] Dykes
[2018-11-28 11:34] VITALS: BP 134/46
--- NOTE | 2018-11-28 13:02 | DS ---
AMENDED REPORT NOW INCLUDES COSIGNER DESIGNATION DISCHARGE SUMMARY: DATE OF ADMISSION: 11/25/18 DATE OF DISCHARGE: 11/28/18 ATTENDING PHYSICIAN: Dr. Emily Dykes.* (DICTATED BY MONIQUE RODRIGUEZ) ADMISSION DIAGNOSIS: Severe end-stage degenerative osteoarthritis, left knee joint. DISCHARGE DIAGNOSES: 1. Severe end-stage degenerative osteoarthritis, left knee joint. 2. Mild cellulitis, anterior left chong/peripheral vascular disease. SURGERY PERFORMED: Left total knee arthroplasty. HOSPITAL COURSE: The patient is a 78-year-old female with increasingly severe left knee pain. Her x-rays revealed [id number] degenerative arthritis. She failed conservative management with anti-inflammatories, pain medication, intraarticular cortisone injections and physical therapy. Due to her increased pain and decreased quality of life, she elected to proceed with left total knee arthroplasty. She was taken to the operating room under the care of Dr. Emily Dykes on the date of 11/25/18. She tolerated the procedure well and left the operating room in stable condition. Postoperatively, it was noted she had some mild erythema on the anterior aspect of her left lower extremity. She does suffer from peripheral vascular disease. She was prophylactically placed on Keflex and should stay on this for a total of 5 days. It was felt she was medically and orthopedically stable for discharge to [facility] [place] for continued rehab prior to returning home independently. CONDITION ON DISCHARGE: Temperature is 98.6, pulse 81, respiratory rate 18, O2 sat 98% on room air, blood pressure 134/53. Her hemoglobin is 9.2, hematocrit 27. Her left knee incision is healing without evidence of infection. There is minimal drainage. Her erythema is improving on the anterior left lower leg. Her calf is soft, nontender. Her neurovascular status is intact. She has active dorsiflexion of the left ankle. PLAN: The patient will be discharged today to [facility] on 11/28/18. She will continue to bear weight as tolerated on the left lower extremity and continue to work on range of motion and physical therapy. She will continue with Eliquis 2.5 mg p.o. b.i.d. for a total of 1 month postoperatively. She may shower, a light dressing with 4x4s and Emiliano may be applied over the left knee as needed. She will continue with Keflex 500 mg p.o. 4 times daily for 3 more days. She will use Percocet 5/325 one to two tablets q.4 to 6 hours p.r.n. pain. We recommend to follow up as scheduled in roughly 10 to 14 days in the office with Dr. Dykes. MONIQUE RODRIGUEZ [id number]/[facility] #: [id number] KARLA
[2018-11-28] MEDS ORDERED: Losartan TAB* 25 MG PO SCH (21:00)
[2018-11-30] MEDS ORDERED: Scopolamine PATCH Remove* 1 NOTE MISC PATCH OFF ONE (11:00)
== END 2018-11-28 13:45 | DRG 470 ==
LOC: AA 06:44 → SSU 12:43
PROVIDERS: ADMIT Orthopaedic Surgery Adult Reconstructive Orthopaedic Surgery; ATTEND Orthopaedic Surgery Adult Reconstructive Orthopaedic Surgery
PROC: 0SRD0J9 Replacement of Left Knee Joint with Synthetic Substitute, Cemented, Open Approach (ICD-10-PCS; principal; 2018-11-25 09:30)
DX: M17.12 Unilateral primary osteoarthritis, left knee (principal); L03.116 Cellulitis of left lower limb; D62 Acute posthemorrhagic anemia; J44.9 Chronic obstructive pulmonary disease, unspecified; E03.9 Hypothyroidism, unspecified; K21.9 Gastro-esophageal reflux disease without esophagitis; M21.062 Valgus deformity, not elsewhere classified, left knee; J45.909 Unspecified asthma, uncomplicated; E11.51 Type 2 diabetes mellitus with diabetic peripheral angiopathy without gangrene; M10.9 Gout, unspecified; E78.5 Hyperlipidemia, unspecified; I12.9 Hypertensive chronic kidney disease with stage 1 through stage 4 chronic kidney disease, or unspecified chronic kidney disease; E11.22 Type 2 diabetes mellitus with diabetic chronic kidney disease; E66.01 Morbid (severe) obesity due to excess calories; N18.3 Chronic kidney disease, stage 3 (moderate); G47.33 Obstructive sleep apnea (adult) (pediatric); Z96.1 Presence of intraocular lens; E11.40 Type 2 diabetes mellitus with diabetic neuropathy, unspecified; M25.762 Osteophyte, left knee; Z83.3 Family history of diabetes mellitus; Z90.710 Acquired absence of both cervix and uterus; Z98.49 Cataract extraction status, unspecified eye; Z68.43 Body mass index [BMI] 50.0-59.9, adult; Z88.5 Allergy status to narcotic agent; Z82.49 Family history of ischemic heart disease and other diseases of the circulatory system; Z88.8 Allergy status to other drugs, medicaments and biological substances; Z87.891 Personal history of nicotine dependence; Z98.42 Cataract extraction status, left eye; Z98.41 Cataract extraction status, right eye
CPT/HCPCS: 36415; 71045; 80048; 85014; 85018; 85027; 85049; 85610; A9270-GY; C1776; G8978-GP-CL; G8979-GP-CI; G8987-GO-CK; G8988-GO-CI; G8988-GO-CJ; J0690; J1100; J1170; J1240; J1650; J1885; J1940; J2250; J2405; J2704; J2795; J3010

== ENCOUNTER 2019-12-02 13:11 | Emergency (ER) | payer MEDICARE, OTHER ==
--- NOTE | 2019-12-02 13:46 | UC ---
Back Pain HPI - HPI Summary HPI Summary: right lower back pain x 4 days pain is 6 out 10 , radiating to right hip/ buttocks worse with movements , better with rest and Tylenol no known injury , denies any abdominal pain , no n/v/d/c no urinary sx - History of Current Complaint Chief Complaint: UCBackPain Stated Complaint: RT SIDE BACK PAIN Time Seen by Provider: 12/02/19 13:27 Hx Obtained From: Patient Onset/Duration: Gradual Onset, Lasting Days - 4, Still Present Timing: Constant Severity Initially: Moderate Severity Currently: Moderate Pain Intensity: 6 Back Pain: Is Discrete @ - right lower back Character: Sharp, Dull, Aching, Spasmodic Aggravating Factor(s): Movement, Lifting, Bending Alleviating Factor(s): Heat, OTC Meds Associated Signs And Symptoms: Negative: Swelling, Redness, Bruising, Fever, Weakness, Numbness, Tingling, Abdominal Pain, Flank Pain, Bladder Incontinence, Weight Loss - Allergies/Home Medications Allergies/Adverse Reactions: Allergies Allergy/AdvReac Type Severity Reaction Status Date / Time codeine Allergy Intermediate See Comment Verified 12/02/19 13:29 Home Medications: Home Medications Cholecalciferol TAB* [Vitamin D TAB*] 2,000 units PO QAM 01/12/17 [History Confirmed 11/25/18] Gabapentin CAP(*) [Neurontin 300 CAP(*)] 300 mg PO TID 01/12/17 [History Confirmed 11/25/18] Levothyroxine TAB* [Synthroid 150 MCG TAB*] 150 mcg PO QAM 01/12/17 [History Confirmed 11/25/18] Lovastatin [Altoprev] 20 mg PO BEDTIME 01/12/17 [History Confirmed 11/25/18] Torsemide [Torsemide 100 MG] 50 mg PO QAM 06/20/17 [History Confirmed 11/25/18] Acetaminophen [Tylenol] 325 mg PO DAILY PRN 11/12/18 [History Confirmed 11/25/18 ] Calcium Carbonate [Tums] 300 mg PO DAILY PRN 11/12/18 [History Confirmed ] Febuxostat [Uloric] 80 mg PO QAM 11/12/18 [History Confirmed 11/25/18] Omeprazole 20 mg PO QAM 11/12/18 [History Confirmed 11/25/18] Telmisartan (NF) [Micardis (NF)] 80 mg PO QAM 11/12/18 [History Confirmed ] Umeclidin/Vilant 62.5 MDI(NF) [ANORO 62.5/25 Ellipta DEVICE (NF)] 1 aer INH DAILY 11/12/18 [History Confirmed 11/25/18] Aspirin 81 mg CHEW TAB* [Aspirin Low Dose TAB*] 81 mg PO DAILY 12/02/19 [ History Confirmed 12/02/19] Insulin GLARGINE(*) [Lantus 100 units/ml 10 ml VIAL (*)] 38 units SUBCUT BID 01/17 [History Confirmed 12/02/19] Insulin LISPRO* [HumaLOG 100 units/ml 3 ml VIAL *] 10 units SUBCUT AC 12/02/19 [ History Confirmed 12/02/19] PMH/Surg Hx/FS Hx/Imm Hx - Additional Past Medical History Additional PMH: sleep apnea chronic kidney disease Endocrine History: Diabetes Cardiovascular History: Hypertension Respiratory History: COPD - Surgical History Surgical History: Yes Surgery Procedure, Year, and Place: Hysterectomy. TONSILLECTOMY. lasik. L knee total - Family History Known Family History: Positive: Hypertension - Social History Alcohol Use: None Alcohol Amount: 1 per year Substance Use Type: None Smoking Status (MU): Former Smoker Amount Used/How Often: social smoker When Did the Patient Quit Smoking/Using Tobacco: quit at age 22 Household Exposure Type: Cigarettes - Immunization History Most Recent Influenza Vaccination: NOT YET IN 2017 Most Recent Pneumonia Vaccination: 2018 Review of Systems All Other Systems Reviewed And Are Negative: Yes Is Patient Immunocompromised?: No Physical Exam Triage Information Reviewed: Yes Appearance: Pain Distress, Obese Vital Signs: Initial Vital Signs Temp 98.1 F 12/02/19 13:25 Pulse 99 12/02/19 13:25 Resp 22 12/02/19 13:25 BP 152/51 12/02/19 13:25 Pulse Ox 96 12/02/19 13:25 Vital Signs Reviewed: Yes Eye Exam: Normal Eyes: Positive: Conjunctiva Clear ENT: Positive: Normal ENT inspection, Hearing grossly normal, Pharynx normal, TMs normal Neck: Positive: Supple, Nontender, No Lymphadenopathy Respiratory: Positive: Chest non-tender, Lungs clear, Normal breath sounds, No respiratory distress, No accessory muscle use Cardiovascular: Positive: RRR, No Murmur, Pulses Normal Abdomen Description: Positive: Nontender Musculoskeletal: Positive: Other: - right lower back : no swelling, no rash , no tenderness, pain with hip flexion , decrease ROM on hip flexion due to pain Back Pain Course/Dx - Differential Dx/Diagnosis Provider Diagnosis: Right sciatic nerve pain Discharge ED - Sign-Out/Discharge Documenting (check all that apply): Patient Departure All imaging exams completed and their final reports reviewed: No Studies - Discharge Plan Condition: Stable Disposition: HOME Patient Education Materials: Sciatica (ED) Referrals: Epi Covarrubias MD [Primary Care Provider] - 7 Days Additional Instructions: may cont. with Tylenol as needed for pain may use heating pads keep the pressure off your right lower back when sitting or lying down follow up with your pcp in one week - Billing Disposition and Condition Condition: STABLE Disposition: Home
[2019-12-02 13:50] VITALS: BP 152/51
== END 2019-12-02 13:50 | disposition home or self-care (01) ==
LOC: UCCORT 13:11
DX: M54.31 Sciatica, right side (principal); E11.22 Type 2 diabetes mellitus with diabetic chronic kidney disease; I12.9 Hypertensive chronic kidney disease with stage 1 through stage 4 chronic kidney disease, or unspecified chronic kidney disease; N18.9 Chronic kidney disease, unspecified; J44.9 Chronic obstructive pulmonary disease, unspecified; Z87.891 Personal history of nicotine dependence; Z79.4 Long term (current) use of insulin; Z79.82 Long term (current) use of aspirin; Z79.899 Other long term (current) drug therapy; Z88.5 Allergy status to narcotic agent
CPT/HCPCS: 99212; G0463